=== PATIENT | male | born 1950 | race Caucasian/White ===

== ENCOUNTER → 2018-07-11 17:45 | Outpatient (CLI) | payer MEDICARE, OTHER, SELFPAY | PROVIDERS: Family Provider Internal Medicine; PCP Internal Medicine; Visit Provider Anesthesiology Pain Medicine | DX: M13.851 Other specified arthritis, right hip (principal); M70.70 Other bursitis of hip, unspecified hip | CPT/HCPCS: 73721 ==

== ENCOUNTER 2018-09-04 08:40 | Inpatient (IN) | payer MEDICARE, OTHER, SELFPAY ==
--- NOTE | 2018-08-24 06:41 | HP.PCM_ITS ---
History and Physical DATE OF SURGERY: 09/04/2018 SCHEDULED PROCEDURE: Direct anterior right total hip arthroplasty HISTORY OF PRESENT ILLNESS: This is a 68-year-old male who has been having ongoing pain in the right hip for over one year. Patient has increased pain with going up and down stairs, driving, and sitting for extended periods of time. His pain is constant. Pain can reach as high as an 8/10. Patient does have start up pain. Pain does complain of pain in the groin. Patient states he has had to use Ambien for sleep aid due to difficulty with sleeping. Patient has difficult time with activities of daily living including leisure activities such as walking and riding his bicycle. He has tried conservative measures consisting of rest, heat, corticosteroid injection with minimal relief. He has had an injection and this iliopsoas and hip joint injection but was short lived. He has been on oral medications consisting of meloxicam with some relief. Patient denies previous surgery on the right hip. Patient has medical problems hypertension. He currently denies any chest pain, shortness of breath, fevers chills, recent infections. After failing conservative measures and discussing all treatment options with Dr. Roge Mcmahan, the patient would like to proceed with a right total hip arthroplasty. We are obtaining surgical clearance from patient's primary care physician Dr. Sun. REVIEW OF SYSTEMS: ROS: Const: Reports anxiety, but denies anorexia, change in appetite, fever, difficulty sleeping, weight change. CV: Denies chest pain, heart murmur, irregular heartbeat and peripheral vascular disease. Resp: Denies asthma, cough, pneumonia, sleep apnea, shortness of breath, tuberculosis and wheezing. GI: Denies constipation, diarrhea, heartburn, nausea, rectal itching, bloody stools and vomiting. : Denies incontinence. Musculo: Denies leg swelling, pain, trouble walking and weakness. Skin: Denies Raynaud's, history of shingles and tattoo. Neuro: Denies ambulatory dysfunction, dizziness, numbness/tingling and tremor. Psych: Reports anxiety, but denies depression, insomnia, mental illness and stress. Keyon/Lymph: Denies anemia, bleeding/bruising tendency and past transfusion. Reviewed, no changes. PAST MEDICAL HISTORY: Advance Care Plan: No Advance Directives Effective Date: 08/19/2018 PMH: Medical Problems: High Blood Pressure, Childhood Polio Surgical Hx: Hemorroidectomy & Fissurectomy - (03/2008) [facility] Anesthesia Complications: None Assistive Devices: Glasses, Dentures, Hearing Aid Reviewed and updated. SOCIAL HISTORY: SH: Marital: .Occupation: Retired.Work Status: Retired.Hand Dominance: Right- Handed. Personal Habits: Cigarette Use: Never.Alcohol: Denies use.Drug Use: Denies Use.Enjoy Exercising: Exercises 1-3 X/Week. Reviewed, no changes. VITALS: Ht: 71 Wt: 169lb Wt k.658 BMI: 23.6 BP: 112/74 Pulse: 60 Resp: 14 T: 98.4 T: 36.9C ALLERGIES: No Known Drug Allergy MEDICATIONS: Meloxicam 15 mg 1 by mouth every day, Pravastatin Sodium 80 mg 1 by mouth every day, Tamsulosin HCL 0.4 mg 1 by mouth every day, Ambien 10 mg 1 by mouth every night at bedtime as needed sleep PRE-OP EXAM: General appearance:NORMAL Other: Eyes: Conjunctivae and lids: NORMAL Pupils: ERR Ears, Nose, Mouth, and Throat: NORMAL Other: Inspection of lips, teeth and gums: NORMAL Other: Neck: Examination of neck: no masses noted. Respiratory: Assessment of respiratory effort: NORMAL Other: Auscultation of lungs: clear to auscultation no wheezes, rhonchi or rales. Cardiovascular: Auscultation of heart: regular rate and rhythm, no murmurs, gallops or rubs. Exam of carotid arteries: NORMAL Other: Gastrointestinal: Exam of abdomen: soft, nontender, nondistended bowel sounds present. PHYSICAL EXAMINATION: Patient walks with an antalgic gait. He has increased pain with range of motion of the right hip including flexion, abduction, and internal rotation. He has right hip flexion to 95, internal rotation 15, external rotation to 20. Patient has 4/5 strength of the iliopsoas. There is no tenderness to palpation over the lateral right hip. Sensation intact to light touch. Neurovascularly intact. IMAGING STUDIES: X-rays of the right hip reveal joint space narrowing, subchondral sclerosis, osteophyte formation consistent with severe osteoarthritis of the right hip. No acute findings for fracture. IMPRESSION: 1. Severe right hip osteoarthritis 2. Hypertension 3. History of childhood polio PLAN: Dr. Mcmahan did discuss and review with the patient all treatment options including surgical versus nonsurgical options. Patient does wish to proceed with the above-stated procedure. Potential risks, benefits, and complications of the procedure were discussed in detail including but not limited to , infection, nerve and blood vessel damage, persistent pain, numbness, tingling, paresthesias, blood clot, pulmonary embolism, and requirement for possible further surgery. The patient expressed full understanding and has no further questions for the doctor. Patient does agree to proceed with the above-stated procedure and has signed the surgery consent form. ___ I have re-examined the patient. There are no clinical changes since date of exam. ___ See progress notes for changes. ___ Dictated on admission Date: Time: Signature:
[2018-08-26 13:11] VITALS: BP 127/69; PULSE 68; RESP 16; TEMP 36.8; O2SAT 98; BMI 23.5
--- NOTE | 2018-08-26 13:36 | SDCEKG_ITS ---
Test Reason : Blood Pressure : / mmHG Vent. Rate : 063 BPM Atrial Rate : 063 BPM P-R Int : 174 ms QRS Dur : 094 ms QT Int : 388 ms P-R-T Axes : 052 -24 027 degrees QTc Int : 397 ms Normal sinus rhythm Normal ECG Confirmed by SHAHRZAD TAMAYO MD ([id number]), book or script editor JALEESA MACK ([id number]) on 09/02/2018 3:19:28 PM Referred By: Roge Mcmahan Confirmed By:SHAHRZAD TAMAYO MD
[2018-08-26 14:09] LABS: Absolute Lymphocyte Count 1.66 X10^3/ul (0.83-4.51); Absolute Neutrophil Count 3.1 X10^3/uL (2.0-7.7); Basophil# 0.03 X10^3/uL; Basophil% 0.6 % (0-1); Eosinophil# 0.05 X10^3/uL; Eosinophils% 0.9 % (0-5); Hematocrit 43.8 % (40-54); Hemoglobin 14.4 g/dl (13.0-16.5); International Normalized Ratio 1.1; Lymphocyte # 1.66 X10^3/ul (4.0); Mean Corp Hgb Conc 32.9 g/gl (32-36); Mean Corpuscular Hgb 30.6 pg (27.0-32.0); Mean Corpuscular Volume 93.2 fL (80-94); Mean Platelet Vol. 9.5 fl (6.2-12.0); Monocyte# 0.49 X10^3/uL; Monocyte% 9.1 % (0-10); Neutrophil # 3.13 X10^3/uL (2.7-7.7); Neutrophil % 58.4 % (47-70); Platelet Count 349 K/mm3 (150-450); Prothrombin Time (Protime)PT. 14.5 SECONDS (11.7-14.9); RBC Distribution Width CV 12.6 % (11.6-14.6); RBC Distribution Width SD 42.4 fl (35.1-43.9); White Blood Count 5.4 K/mm3 (4.4-11.0)
[2018-08-26 14:10] LABS: Partial Thromboplast Time 31.9 Seconds (24.1-36.2)
[2018-08-26 14:19] LABS: POSITIVE COUNT NO; POSITIVE DIFFERENTIAL NO; POSITIVE MORPHOLOGY NO
[2018-08-26 14:33] LABS: AST(SGOT) 18 U/L (15-37); Alanine Aminotransfer ALT/SGPT 24 U/L (16-61); Albumin, Serum 3.9 g/dL (3.2-5.0); Alkaline Phosphatase 68 U/L (45-117); Anion Gap 6 (5-15); BUN 14 mg/dL (7-18); BUN/Creat Ratio 16.6 RATIO (10-20); Bilirubin, Direct 0.18 mg/dL (0.00-0.30); Chloride 105 mmol/L (98-107); Creatinine, Serum 0.84 mg/dL (0.70-1.30); EST Glomerular Filtration Rate 96 mL/min (>60); Est Glom Filt Rate - Afr Amer 116 mL/min (>60); Globulin 3.3 g/dL (2.2-4.2); Glucose 85 mg/dL (74-106); Protein, Total 7.2 g/dL (6.4-8.2); Sodium Level 139 mmol/L (136-145)
--- NOTE | 2018-08-30 13:00 | CASEMGMT ---
Call placed to patient to discuss discharge needs after upcoming surgery. Per PAT assessment, patient anticipated returning home. Patient states that he's unsure if he will have someone to assist him at home and is interested in possibly going to inpatient rehab. Patient states that he is interested in home health PT as he will not have assistance with transportation. Patient has a walker, toilet riser with grab bars built in, and shower seat. Patient has [address] Informed patient that RN-CM will follow up after surgery. Magali Ovalle LPN Clinical Support
[2018-09-04] VITALS (8 sets, daily range): BP systolic 107–135; BP diastolic 62–83; PULSE 57–88; RESP 16–18; TEMP 36.1–37.1; O2SAT 96–99; BMI 23.5; BMI 23.6
[2018-09-04] MEDS: oxyCODONE HCl Cr 10 MG Tablet PO (09:16)
[2018-09-04] MEDS: Acetaminophen 500 MG Tablet 1000 MG PO ×3 (09:16→22:06)
[2018-09-04] MEDS: Celecoxib 200 MG Capsule 400 MG PO (09:16)
[2018-09-04] MEDS: Cefazolin 2 GM in 0.9% Normal Saline 100 ML IV (10:25)
--- NOTE | 2018-09-04 11:00 | RAD_ITS ---
STUDY: X-RAY - PELVIS AND RIGHT HIP REASON FOR EXAM: Hip replacement. TECHNIQUE: Radiological exam, hip, unilateral, with pelvis when performed; 2 or 3 views. COMPARISON: Radiographs 08/03/2016. FINDINGS: 4 fluoroscopic views demonstrate a right hip arthroplasty without evidence of complication. Electronically Signed: Corona Vasquez MD at 13:40 EDT Tel , Service support , RAD/Hip 1 view with Pelvis
--- NOTE | 2018-09-04 12:02 | OP.PCM_ITS ---
Report of Operation Date of Procedure: 09/04/18 Pre-Operative Diagnosis: Right hip primary osteoarthritis Post-Operative Diagnosis: Right hip primary osteoarthritis Surgery/Procedure Performed:: Right direct anterior total hip replacement Description of Surgical Findings:: Stable hip with equal leg lengths tin stacker: Jadyn Ordonez Type of Anesthesia:: Spinal Anesthesiologist: Alexey Briscoe Special Medications: 2 g Ancef, 1 g TXA at incision, 1 g TXA closure, 10 mg Decadron, joint cocktail (5 mg Duramorph, 30 mL of 0.5% Ropivicaine, 1000 units of epinephrine, 30 mg of Toradol) Specimen's removed: Bony cuts Estimated Blood Loss (mL): 200 Fluids Replaced: 1400 mL crystalloid Description of Procedure: Components used: 1. Accolade 2 Rajiv femoral stem size 8 127? 2. [place] trident II acetabular shell size 56 mm 3. Rajiv X3 polyethylene F 4. Rajiv Biolox delta 36mm, 5mm femoral head Brief history operative indications: 68 yo m who failed conservative measures for their hip osteoarthritis. X-rays were consistent with osteoarthritis including joint space narrowing, osteophyte formation and subchondral cysts. Total hip replacement was discussed with the patient with risks and benefits including but not limited to blood loss, DVTs, PEs, neurovascular damage, dislocation, general risks of anesthesia including loss of life. Patient demonstrated an understanding medical clearance is obtained the patient was consented for surgery. Procedure: On the date of procedure the patient's R hip was marked in the preoperative area. Patient was then taken back to the operating room where anesthesia assumed control of the C-spine and airway and administered anesthetic. Patient was transferred to the operating table and placed in the supine position. The hips were placed at the break of the bed and a sacral bump was placed. The R lower extremity was then prepped out in a sterile fashion using chlorhexidine while the surgeon scrubbed. The PA was vital in the positioning of the patient. Upon reentering the room the R lower extremity was draped in the standard orthopedic fashion and the incision was marked. A timeout was called and everyone agreed upon the side, the site, the procedure be performed, antibody given, and patient's identity. At this time incision was made through skin, subcutaneous tissue, and fat down to fascia. The fascia was then incised and the TFL was retracted laterally. A retractor was placed on the lateral border of the femoral neck. Attention was directed to the inferior portion of the approach and all crossing vessels were identified and appropriately coagulated. A retractor was then placed on the medial portion of the femoral neck. The anterior capsule was then cleared of all soft tissue and then H shaped capsulotomy was made. The retractors were then placed inside the capsule. The femoral neck was identified and a cleanup cut was made. At this time a power corkscrew was used to remove the femoral head. Attention was then turned toward the acetabulum where the soft tissues were appropriately retracted and the acetabulum was sequentially reamed to 56 mm. A 56 mm cup was then selected and impacted into place. Acetabular liner was impacted into place and locking mechanism was verified. The position of the acetabular cup was then verified under live fluoroscopy. Attention was then turned to the femur. Soft tissue releases on the medial and lateral femoral neck were appropriately done, the leg was externally rotated and lateralized. A Johnson retractor was placed medially and proximally to the greater trochanter this allowed appropriate visualization and exposure of the femoral canal. Rongeour was then used to remove excess lateral bone. A canal finder and entry broach were used to open the proximal canal. Once we verified we were down the femoral canal we subsequently broached up to a size 8 femur. The appropriate neck was placed in the previously selected head was trialed with a 5 mm neck. Traction was pulled and the hip was reduced with internal rotation. Once it was appropriately reduced and stability was checked. There was minimal shuck, equal leg lengths and appropriate stability with hyperextension and external rotation as well as with 90? flexion and internal rotation. Fluoroscopy was then also used to verify the position of the components and leg lengths using the contralateral side for comparison. The trial components were then dislocated the proximal femur was again exposed and the components were removed from the wound. The final components were verified and opened. The wound was copiously irrigated out with normal saline. The acetabulum was checked for any residual debris. The final components were placed and impacted. Traction and internal rotation were again used to reduce the hip. After adequate reduction the hip remained stable with appropriate leg lengths. The final components were once again checked with live fluoroscopy and were found to be satisfactory. The wound was then copiously irrigated with normal saline once more, and hemostasis was obtained. Closure was then done using #1 Vicryl runner to close the fascia. A 2-0 vicryl interuppted sutures were used to close the subcutaneous skin. A 3-0 Monocryl and Steri-Strips were used for final skin closure. A Silverlon dressing was placed. Patient was awakened by anesthesia and transferred to [facility]. Patient was then transferred to the PACU for recovery. Postoperative plan: Patient will get 24 hours postop antibiotics. Patient will get in-house physical therapy and will be weight-bear as tolerated. Patient will follow up in office in 2 weeks for a wound check and x-rays. Grafts/Implants Used: Rajiv Accolade 2 - Complications None - Admit VTE Documentation VTE Present on Admission: No VTE Mechan Device Prophylaxis: SCD's, Thigh High JIMMY Hose VTE Pharm Prophylaxis ordered?: Yes
--- NOTE | 2018-09-04 12:03 | RAD_ITS ---
STUDY: X-RAY - PELVIS AND RIGHT HIP REASON FOR EXAM: Postop. TECHNIQUE: Radiological exam, hip, unilateral, with pelvis when performed; 1 view COMPARISON: Radiographs 08/03/2016. FINDINGS: There is a right hip arthroplasty without evidence of complication. There is postoperative soft tissue gas in the soft tissues. RAD/Hip Min 2 Views (Portable) IMPRESSION: Uncomplicated right hip arthroplasty. Electronically Signed: Corona Vasquez MD at 13:40 EDT Tel , Service support ,
[2018-09-04] MEDS: oxyCODONE 5 MG Tablet PO (13:13)
[2018-09-04] MEDS: Lactated Ringers 1,000 ML 125 ML IV ×2 (14:14→22:48)
[2018-09-04] MEDS: Aspirin E.C. 81 MG Tablet PO (17:34)
[2018-09-04] MEDS: Cefazolin 1 GM/50 ML BAG IV (17:35)
--- NOTE | 2018-09-04 19:35 | NURSING ---
PT C/O FULL BLADDER. PT WAS BLADDERSCANNED FOR 794ML. ST CATH PREFORMED FOR OUTPUT OF 750ML. PT TOLERATED WELL.
[2018-09-04] MEDS: Morphine 4 MG/ML Syringe IV (20:02)
[2018-09-04] MEDS: 0.9% NaCl Peripheral Flush Adult/Peds IV (20:03)
[2018-09-04] MEDS: Tamsulosin HCl 0.4 MG Capsule PO (20:36)
[2018-09-04] MEDS: Zolpidem Tartrate 5 MG Tablet PO (22:06)
[2018-09-04] MEDS: Pravastatin 80 MG Tablet PO (22:06)
[2018-09-04] MEDS: Senna/Docusate Sodium 1 Tablet 2 TABLET PO (22:06)
[2018-09-05] MEDS: Cefazolin 1 GM/50 ML BAG IV (02:49)
[2018-09-05 02:51] VITALS: BP 126/78; PULSE 62; RESP 16; TEMP 36.7; O2SAT 96
[2018-09-05] MEDS: Acetaminophen 500 MG Tablet 1000 MG PO ×3 (05:57→22:00)
[2018-09-05] MEDS: 0.9% NaCl Peripheral Flush Adult/Peds IV (06:34)
[2018-09-05] MEDS: Ondansetron 4 MG/2 ML Vial IV (06:34)
[2018-09-05] MEDS: Lactated Ringers 1,000 ML 125 ML IV (06:39)
[2018-09-05 06:46] LABS: Hematocrit 37.3 % (40-54); Hemoglobin 12.4 g/dl (13.0-16.5); Mean Corp Hgb Conc 33.2 g/gl (32-36); Mean Corpuscular Hgb 31.5 pg (27.0-32.0); Mean Corpuscular Volume 94.7 fL (80-94); Mean Platelet Vol. 9.4 fl (6.2-12.0); Platelet Count 319 K/mm3 (150-450); RBC Distribution Width CV 12.8 % (11.6-14.6); RBC Distribution Width SD 42.9 fl (35.1-43.9); Red Blood Count 3.94 M/mm3 (4.6-6.2); White Blood Count 11.9 K/mm3 (4.4-11.0)
[2018-09-05 06:49] LABS: Scan Indicated on CBC? Y/N NO
[2018-09-05 07:01] LABS: Anion Gap 7 (5-15); BUN 9 mg/dL (7-18); BUN/Creat Ratio 11.5 RATIO (10-20); Calcium,Total 8.5 mg/dL (8.5-10.1); Chloride 107 mmol/L (98-107); Creatinine, Serum 0.78 mg/dL (0.70-1.30); EST Glomerular Filtration Rate 104 mL/min (>60); Est Glom Filt Rate - Afr Amer 126 mL/min (>60); Estimated Creatinine Clearance 71.99 ml/min; Glucose 119 mg/dL (74-106); Potassium 3.6 mmol/L (3.5-5.1); Sodium Level 141 mmol/L (136-145)
[2018-09-05] MEDS: Tamsulosin HCl 0.4 MG Capsule PO (07:39)
--- NOTE | 2018-09-05 08:45 | NURSING ---
aware Ray is going to talk w/ Dr. Mcmahan and discuss urology consult with him as per air lift operator is not taking consults today that Dr. Barber is covering and it states if it is male patient she will only see emergent consults. Also discussed per policy if it is an emergent consult, it is to be physician to physician notification.
[2018-09-05 08:50] VITALS: BP 98/55; PULSE 64; RESP 16; TEMP 36.8; O2SAT 98
[2018-09-05] MEDS: oxyCODONE 5 MG Tablet PO ×3 (08:50→17:25)
[2018-09-05] MEDS: Senna/Docusate Sodium 1 Tablet 2 TABLET PO ×2 (08:50→22:00)
[2018-09-05] MEDS: Famotidine 20 MG Tablet PO (08:50)
[2018-09-05] MEDS: Aspirin E.C. 81 MG Tablet PO ×2 (08:50→17:16)
--- NOTE | 2018-09-05 09:08 | PN.ORTHO_ITS ---
Subjective: The patient was sitting in bed upon examination. Patient denies any chest pain, shortness of breath, dizziness, lightheadedness, nausea or vomiting, or calf pain. Pain is controlled on medications. Patient states he had a very difficult time overnight due to postoperative urinary retention. Patient has history of BPH and takes tamsulosin. Patient required to be catheterized and is still currently placed. Objective: Vital signs stable and afebrile. Patient is able to plantarflex and dorsiflex actively. Sensation is intact to light touch to saphenous, sural, superficial and deep peroneal, and tibial distribution. Dressing is clean dry and intact. Negative Homans bilaterally, negative signs and symptoms of DVT. - Physical Exam General: Alert, Oriented x3, Cooperative, No apparent distress Vital Signs Temp Pulse Resp BP Pulse Ox 98.2 F 64 16 98/55 L 98 09/05/18 08:50 09/05/18 08:50 09/05/18 08:50 09/05/18 08:50 09/05/18 08:50 Oxygen Delivery Method Room Air Weight: 76.5 kg Body Mass Index (BMI) 23.6 Intake and Output for Last 24 Hours 09/03/18 09/04/18 09/05/18 23:59 23:59 23:59 Intake Total 1500 / 1500 2507 / 2507 Output Total 1950 / 1950 2250 / 2250 Balance -450 / -450 257 / 257 Laboratory Tests Past 24 Hrs 09/05/18 09/05/18 06:12 06:12 WBC 11.9 H RBC 3.94 L Hgb 12.4 L Hct 37.3 L MCV 94.7 H MCH 31.5 MCHC 33.2 RDW 12.8 RDW Differential 42.9 Plt Count 319 MPV 9.4 Sodium 141 Potassium 3.6 Chloride 107 Carbon Dioxide 27.0 Anion Gap 7 BUN 9 Creatinine 0.78 Estim Creat Clear Calc 71.99 Est GFR (MDRD) Af Amer 126 Est GFR (MDRD) Non-Af 104 BUN/Creatinine Ratio 11.5 Glucose 119 H Calcium 8.5 Medical Necessity - Tobacco Use Smoking Status: Never smoker Assessment/Plan 1. S/P right direct anterior total hip arthroplasty POD #1 2. Continue Pain Medications: Tylenol and OxyIR 3. DVT Prophylaxis: 81 mg aspirin twice daily times 4 weeks 4. PT/OT: Weightbearing as tolerated 5. H & H: 12.4/37.3, asymptomatic 6. Leukocytosis: Currently 11.9, afebrile. Patient did receive Decadron int raoperatively 7. Encouraged Incentive Spirometry 8. Postoperative urinary retention with history of BPH: Currently on tamsulosin. Continue with catheterization and will pull this afternoon at 1:00. If patient is still unable to urinate on his own consult to urologist will be obtained. Case was discussed with Dr. Roge Mcmahan. 9. Disposition: Plan will be for discharge to rehab unit at [facility] possibly tomorrow.
--- NOTE | 2018-09-05 10:43 | CASEMGMT ---
Addendum entered by Margaux Mitchell 09/05/18 12:15: SW met with pt to confirm discharge plans. SW introduced self and role at [facility]. Pt confirms that his plan is for [facility] at discharge. Original Note: Social Work Note RN CYNTHIA Jackson updated this worker that she called Maria Eugenia with [facility] informing her that pt should be ready for discharge to [facility] tomorrow. Plan: Discharge to when medically cleared Margaux Mitchell JUNIOR PROGRAMMER ANALYST, QUALITY IMPROVEMENT MANAGER
[2018-09-05 14:50] VITALS: BP 130/69; PULSE 79; RESP 16; TEMP 37.4; O2SAT 98
[2018-09-05 20:00] VITALS: O2SAT 98
[2018-09-05 20:50] VITALS: BP 121/66; PULSE 89; RESP 18; TEMP 37.2; O2SAT 98
[2018-09-05] MEDS: Meloxicam 7.5 MG Tablet PO (22:00)
[2018-09-05] MEDS: Pravastatin 80 MG Tablet PO (22:00)
[2018-09-05] MEDS: Zolpidem Tartrate 5 MG Tablet PO (22:30)
[2018-09-06 03:04] VITALS: BP 99/52; PULSE 67; RESP 16; TEMP 37.3; O2SAT 99
[2018-09-06] MEDS: Acetaminophen 500 MG Tablet 1000 MG PO (05:29)
[2018-09-06 06:43] LABS: Hematocrit 34.9 % (40-54); Hemoglobin 11.3 g/dl (13.0-16.5); Mean Corp Hgb Conc 32.4 g/gl (32-36); Mean Corpuscular Volume 95.6 fL (80-94); Mean Platelet Vol. 9.7 fl (6.2-12.0); Platelet Count 277 K/mm3 (150-450); RBC Distribution Width SD 43.8 fl (35.1-43.9); Red Blood Count 3.65 M/mm3 (4.6-6.2); Scan Indicated on CBC? Y/N NO; White Blood Count 9.6 K/mm3 (4.4-11.0)
--- NOTE | 2018-09-06 06:50 | PN.ORTHO_ITS ---
Subjective: The patient was sitting in bed upon examination. Patient denies any chest pain, shortness of breath, dizziness, lightheadedness, nausea or vomiting, or calf pain. Pain is controlled on medications. No adverse overnight events. Since catheter was removed yesterday patient has been able to void on his own. Overall patient is doing well and will be transferred to the rehab unit today. Objective: Vital signs stable and afebrile. Patient is able to plantarflex and dorsiflex actively. Sensation is intact to light touch to saphenous, sural, superficial and deep peroneal, and tibial distribution. Dressing is clean dry and intact. Negative Homans bilaterally, negative signs and symptoms of DVT. - Physical Exam General: Alert, Oriented x3, Cooperative, No apparent distress Vital Signs Temp Pulse Resp BP Pulse Ox 99.2 F H 67 16 99/52 L 99 09/06/18 03:04 09/06/18 03:04 09/06/18 03:04 09/06/18 03:04 09/06/18 03:04 Oxygen Delivery Method Room Air Weight: 76.5 kg Body Mass Index (BMI) 23.6 Intake and Output for Last 24 Hours 09/04/18 09/05/18 09/06/18 23:59 23:59 23:59 Intake Total 1500 / 1500 2827 / 2827 120 / 120 Output Total 1950 / 1950 4100 / 4100 800 / 800 Balance -450 / -450 -1273 / -1273 -680 / -680 Laboratory Tests Past 24 Hrs 09/05/18 09/05/18 09/06/18 06:12 06:12 06:05 WBC 11.9 H 9.6 RBC 3.94 L 3.65 L Hgb 12.4 L 11.3 L Hct 37.3 L 34.9 L MCV 94.7 H 95.6 H MCH 31.5 31.0 MCHC 33.2 32.4 RDW 12.8 13.0 RDW Differential 42.9 43.8 Plt Count 319 277 MPV 9.4 9.7 Sodium 141 Potassium 3.6 Chloride 107 Carbon Dioxide 27.0 Anion Gap 7 BUN 9 Creatinine 0.78 Estim Creat Clear Calc 71.99 Est GFR (MDRD) Af Amer 126 Est GFR (MDRD) Non-Af 104 BUN/Creatinine Ratio 11.5 Glucose 119 H Calcium 8.5 Medical Necessity - Tobacco Use Smoking Status: Never smoker Assessment/Plan 1. S/P right direct anterior total hip arthroplasty POD #2 2. Continue Pain Medications: Tylenol and OxyIR 3. DVT Prophylaxis: 81 mg aspirin twice daily times 4 weeks 4. PT/OT: Weightbearing as tolerated 5. H & H: 11.3/34.9, asymptomatic 6. Leukocytosis: Resolved currently 9.6, afebrile. Patient did receive Decadron intraoperatively 7. Encouraged Incentive Spirometry 8. Postoperative urinary retention with history of BPH: Currently on tamsulosin. Catheter was removed yesterday and patient has been able to void on his own. We will continue with his own home medication at this time. 9. Disposition: Plan will be for discharge today to rehab unit at [facility]. Prescriptions are attached to the chart. Patient will follow-up per postop instructions.
--- NOTE | 2018-09-06 06:56 | DCINST_ITS ---
Discharge Diet: No Restrictions Discharge Activity: May Not Drive - while taking narcotic pain medications. May shower in (days): 1 - Turned dressing away from water Ice area for (Minutes): 20 - Every 1-2 hours while awake Weight Bearing Status: Weight bearing as tolerated Elevate: Operative Extremity Additional Activity Instructions:: Wear elastic stockings for 2 weeks. DO NOT use alcohol with narcotic pain medication. DO NOT make important decisions while taking narcotic medication. If you have problems with taking your medication (rash, itching, nausea, etc.) call the office at once. Call your doctor if your incision/area has: Increased Pain/ Swelling, Increased Redness, Foul Smelling Discharge Call your doctor if you observe: Fever of 101 or Higher Remove Dressing in (days):: 3 - Okay to remove dressing on September 09, 2018 Additional Instructions: Follow-up per [facility] postop instructions We would like patient to take meloxicam 7.5 mg twice daily postoperatively and not his 15 mg. It is okay for patient to shower at this time if dressing is intact to the skin. He is to turn the dressing away from water while showering. Once dressing is off it is okay to use gentle soap and water over the incision. Do not submerge the incision for 4 weeks postoperatively under water. Allergies/Adverse Reactions: Allergies No Known Allergies Allergy (Unverified 08/26/18 13:05) Medications to take at Discharge Pravastatin Sodium 80 mg PO QHS 08/26/18 Tamsulosin HCl [Flomax] 0.4 mg PO DAILY 08/26/18 Zolpidem Tartrate [Ambien] 10 mg PO QHS 08/26/18 Acetaminophen [Tylenol] 1,000 mg PO Q8 #90 tab 09/06/18 Aspirin E.C. [Ecotrin] 81 mg PO BIDCM #60 tab 09/06/18 Famotidine [Pepcid] 20 mg PO DAILY #30 tab 09/06/18 Meloxicam [Mobic] 7.5 mg PO BID #30 tab 09/06/18 Oxycodone [Oxyir] 5 - 10 mg PO Q4H PRN PRN 5 Days #60 tab 09/06/18 Senna/Docusate Sodium [Senokot-S] 2 tab PO BID #20 tab 09/06/18 The following prescriptions were given: Oxycodone [Oxyir] 5 - 10 mg PO Q4H PRN PRN 5 Days #60 tab PRN Reason: Mod-Severe Pain (-09/04) Acetaminophen [Tylenol] 1,000 mg PO Q8 #90 tab Famotidine [Pepcid] 20 mg PO DAILY #30 tab Aspirin E.C. [Ecotrin] 81 mg PO BIDCM #60 tab Meloxicam [Mobic] 7.5 mg PO BID #30 tab Senna/Docusate Sodium [Senokot-S] 2 tab PO BID #20 tab Primary Care Physician: Lo Sun MD [Primary Care Provider] - Test Results: Test results from this visit will be discussed in further detail at your follow- up appointment, if applicable. Please Follow Up With: Damon Kohler PA-C When: 09/18/18 @ 10:30 am
[2018-09-06 08:11] VITALS: BP 111/59; PULSE 83; RESP 16; TEMP 37; O2SAT 93
[2018-09-06] MEDS: Aspirin E.C. 81 MG Tablet PO (08:16)
[2018-09-06] MEDS: Tamsulosin HCl 0.4 MG Capsule PO (08:17)
[2018-09-06] MEDS: 0.9% NaCl Peripheral Flush Adult/Peds IV (08:21)
[2018-09-06] MEDS: Ketorolac 15 MG/ML Vial IV (08:21)
[2018-09-06] MEDS: Meloxicam 7.5 MG Tablet PO (09:45)
[2018-09-06] MEDS: Famotidine 20 MG Tablet PO (09:45)
[2018-09-06] MEDS: Senna/Docusate Sodium 1 Tablet 2 TABLET PO (09:45)
--- NOTE | 2018-09-06 10:50 | CASEMGMT ---
Social Work Note MARIE spoke with Maria Eugenia with [facility] informing her that discharge orders are in for pt and he will be discharged today to . Maria Eugenia states understanding and is able to accept pt today. Plan: Discharge to today Margaux Mitchell SQUAD LEADER, PILOT INSTRUCTOR
== END 2018-09-06 11:20 | DRG 470 ==
LOC: ACINP 08:41 → MS3 09-05 07:38
PROVIDERS: Anesthesiology; Admitting Provider Specialist; Family Provider Internal Medicine; PCP Internal Medicine; Referring Provider Specialist; Visit Provider Specialist
PROC: 0SR904Z Replacement of Right Hip Joint with Ceramic on Polyethylene Synthetic Substitute, Open Approach (ICD-10-PCS; CPT 27284; principal; 2018-09-04 10:35)
DX: M16.11 Unilateral primary osteoarthritis, right hip (principal); I10 Essential (primary) hypertension; E78.00 Pure hypercholesterolemia, unspecified; Z79.52 Long term (current) use of systemic steroids; Z79.899 Other long term (current) drug therapy; N40.1 Benign prostatic hyperplasia with lower urinary tract symptoms; R33.8 Other retention of urine; D72.829 Elevated white blood cell count, unspecified; N99.89 Other postprocedural complications and disorders of genitourinary system
CPT/HCPCS: 36415; 73501; 73502; 76000; 80048; 80076; 85025; 85027; 85610; 85730; 87077; 87081; 93005; 97110; 97162; 97165; 97530; 97535; 99251; C1776; J7120; 90686; A4216; G0463; J2405

== ENCOUNTER 2018-09-06 11:59 | Inpatient (IN) | payer MEDICARE, OTHER, SELFPAY ==
[2018-09-06 12:24] VITALS: BP 110/59; PULSE 80; RESP 16; TEMP 36.8; O2SAT 97; BMI 25.1
--- NOTE | 2018-09-06 12:36 | NURSING ---
tel. [facility]. ref. if pt needs lovenox 40mg daily? They will talk to ANTOINE Lyons and call us back.
--- NOTE | 2018-09-06 12:51 | NURSING ---
ANTOINE Fish called stated that ASA 81mg BID is prophylactic for this Pt. Do not give lovenox.
--- NOTE | 2018-09-06 12:52 | REHABEVAL_ITS ---
Admission Information Status Changes from Prescreening?: No changes Identified Actual Problem List:: Mobility Impaired, Self Care Deficit Potential Problem List:: DVT, Bleeding, Infection, UTI, Aspiration, Falls, Skin Integrity, Depression Risk of Complications DVT: LMWH, JIMMY Hose, Sequential Compression Device Bleeding: Monitor Lab Values, Nursing to Teach Precautions for anti-coagulation therapy., Wound, if applicable, to be assessed every shift., Stroke patients assessed for lethargy or change in status. Infection: Clinical Staff to Monitor for S/S of infection:, S/S of infection include fever, redness, warmth, etc. Urinary Tract Infection: Monitor for frequency, burning, discomfort, or incontinence., Nursing will obtain urine sample for urinalysis and C&S when ordered. Aspiration: Clinical staff will monitor for coughing, drooling, congestion., Speech will evaluate swallowing and dsyphasia., Nursing will monitor patient swallowing during meals. Falls: Patient will be evaluated for Fall Precautions, Patient will be placed on Fall Precautions as indicated per protocol. Skin Breakdown: Nursing will assess skin daily using assessment tool., Nursing will place on Skin Breakdown Precautions as indicated. Pain: Clinical staff will assess patient's pain level per protocol., Medications will be given, if needed, and the pain level reassessed., Other methods: Massage, distraction, decrease stimulus, etc. used PRN. Plan of Care Patient requires physician specializing in physical medicine and rehab oversight to provide close medical supervision of rehab issues including: Pain Management, Sleep Problems, Bowel and Bladder, Medical and co-morbidity Management, DVT prophylaxis, Rehabilitation Leadership, Coordination of treatment team Patient needs Physical Therapy: For a minimum of 1 hour, At least 5 out of 7 days Patient needs Physical Therapy to improve:: Mobility, Mobility, Mobility, Strengthening, Transfers, Stretching, ROM, Endurance, Stairs, Gait, Balance Patient needs Occupational Therapy: For a minimum of 1 hour, At least 5 out of 7 days Patient needs Occupational Therapy to improve ADL's incl.: Eating, Grooming, Bathing, Dressing, Toileting, Toilet transfers, Community Reintegration, Higher functioning activities, Household tasks, Adaptive Equipment, Splinting, Other activities as determined Patient requires 24/7 Rehabilitation Nursing for: Pain Issues, Identifying and preventing risk factors, Monitoring and reporting current medical conditions, Assisting with ambulation, transfer, and all ADL's, Teaching patients about disease process and medications, Family teaching, Providing safe environment, Bowel and Bladder Issues, Skin integrity, Medication Management Patient needs Leak Patcher/ Case Management for: Discharge Planning, Arranging Home Equipment or Services, Family Interventions Patient needs Dietary and Nutrition Services for: Adequate Nutrition, Nutritional Supplements, Nutritional Education Goals Patient will remain: free from falls, or injury at time of discharge. Patient will perform bed mobility at: MOD I level of assist. Patient will complete transfers from bed to chair at: MOD I level of assist. Patient will ambulate: 100 feet, with MOD I assist, with LRD Patient will complete upper body dressing at: MOD I level of assist. Patient will complete lower body dressing at: MOD I level of assist. Patient will complete toileting at: MOD I level of assist. Patient will perform bathing at: MOD I level of assist. Patient will complete grooming at: MOD I level of assist. Patient will complete home management skills at: MOD I level of assist. Patient will achieve: 12 stairs, at MOD I assist Patient will have pain level of: of 3 or less Patient's skin will: remain intact, free from infection. Patient will receive: adequate nutrition. Discharge Planning Pt Prognosis for Sig. Practical Improv. w/in Reasonable Time: Good Estimated Length of stay (days): 16 Anticipated D/C Destination: Home with Outpt Therapy Was Preadmission Assessment Accurate?: Yes
--- NOTE | 2018-09-06 14:32 | CASEMGMT ---
Reviewed and approved attached manager social media student documentation. Alycia MENDES, BEVERAGE SERVER
[2018-09-06] MEDS: Acetaminophen 500 MG Tablet 1000 MG PO ×2 (14:38→22:47)
[2018-09-06] MEDS: oxyCODONE 5 MG Tablet PO ×2 (14:38→20:15)
--- NOTE | 2018-09-06 14:38 | PCM.PN.HOSP ---
Subjective: 68-year-old with past medical history of hip osteoarthritis, hyperlipidemia, BPH, insomnia who comes in for acute rehab status post right direct anterior total hip replacement on 09/04/18. Patient is postop day 2 post procedure. He is being admitted to the inpatient rehab for therapy to discharge home. He feels well. Has been ambulating in the unit. Complains of constipation. Last moved his bowel 4 days ago. Denies any fever or chills or chest pain or shortness of breath Review of systems has been negative Vitals/I&O's: Weight: 77.2 kg Body Mass Index (BMI) 25.1 General: Alert, Oriented x3, Cooperative, No apparent distress HEENT: Atraumatic, PERRLA, EOMI, Normocephalic Oral: Moist Mucosa Neck: Supple, No JVD, Negative Carotid Bruits Lungs: Clear to auscultation, Normal air movement Cardiovascular: Regular rate, Regular Rhythm, Normal S1, Normal S2, No murmurs Abdomen: Bowel Sounds Present, Soft, Non Tender, Non-Distended, No Hepato-splenomegaly Extremities: No edema, - - Right anterior dressing is clean, intact, slight tenderness at the right hip, range of motion is intact Skin: No rashes, No breakdown Musculoskeletal: No Tenderness to Palpation of Joints or Extremities Lymphatic: No Cervical, Supraclavicular, or Inguinal Adenopathy Neurological: Cranial nerves II-XII grossly intact, Neuro grossly intact Psych/Mental Status: Normal Affect, Appropriate Current Medications Acetaminophen (Tylenol) 1,000 mg PO Q8 [facility] Aspirin (Ecotrin) 81 mg PO BIDCM [facility] Bisacodyl (Dulcolax) 10 mg RECTAL .PRN X 1 PRN PRN Reason: Constipation Famotidine (Pepcid) 20 mg PO DAILY [facility] Fentanyl (Duragesic Patch) 12 mcg TRANSDERM. Q3D [facility] Magnesium Hydroxide (Milk Of Magnesia) 30 ml PO .PRN X 1 PRN PRN Reason: Constipation Meloxicam (Mobic) 7.5 mg PO BID [facility] Oxycodone HCl (Oxyir) 5 - 10 mg PO Q4H PRN PRN PRN Reason: MOD-SEVERE PAIN (4-09/04) Pravastatin Sodium (Pravachol) 80 mg PO QHS [facility] Senna/Docusate Sodium (Senokot-S, Gloria-Colace) 2 tablet PO BID [facility] Tamsulosin HCl (Flomax) 0.4 mg PO DAILY [facility] Zolpidem Tartrate (Ambien (Generic)) 10 mg PO QHS [facility] Medical Necessity - Tobacco Use Smoking Status: Never smoker Assessment/Plan 68-year-old with past medical history of hip osteoarthritis, hyperlipidemia, BPH, insomnia who comes in for acute rehab status post right direct anterior total hip replacement on 09/04/18. 1. Debility secondary to recent hip replacement, postop day #2, pain is controlled, will follow up on orthopedic recommendation, physical therapy Continue with pain control 2. Postop anemia, drop in hemoglobin from 14.4-11.3, no signs of ongoing bleed, will continue to monitor 3. Hyperlipidemia, on statin 4. BPH on Flomax 5. DVT prophylaxis per orthopedics recommendations Code Visit Inpatient E&M: 73932 Subs Hosp L2
--- NOTE | 2018-09-06 16:53 | PCM.HP.COS ---
History of Present Illness Date of Admission: 09/06/18 Chief Complaint: Right total hip replacement The patient is a 68 year old right handed Male, who is admitted to the rehab unit for rehabilitation after a right total hip arthroplasty with Dr. Mcmahan on 09/04 without complications. He has a PMH of hip osteoarthritis, HLD, BPH, and insomnia. He has been having ongoing pain in the right hip for the last year and a half, which had begun to affected his quality of. He was having increased pain with going up and down stairs, driving, and sitting for extended periods of time. He lives alone, in a 1 story home with 2 steps to get into the home, he is previously completely functionally independent and is admitted to the rehab unit in order to restore his previous level of functional independence. Past Medical History Allergies No Known Allergies Allergy (Unverified 08/26/18 13:05) Home Medications: Ambulatory Orders Medication Instructions Recorded Pravastatin Sodium 80 mg PO QHS 08/26/18 Tamsulosin HCl [Flomax] 0.4 mg PO DAILY 08/26/18 Zolpidem Tartrate [Ambien] 10 mg PO QHS 08/26/18 Acetaminophen [Tylenol] 1,000 mg PO Q8 09/06/18 Aspirin E.C. [Ecotrin] 81 mg PO BIDCM 09/06/18 Famotidine [Pepcid] 20 mg PO DAILY 09/06/18 Meloxicam [Mobic] 7.5 mg PO BID 09/06/18 Oxycodone [Oxyir] 5 - 10 mg PO Q4H PRN PRN 5 Days 09/06/18 #60 tab Surgical History: - - Hemorrhoidectomy, and Fissurectomy Lives: Alone Smoking Status: Never smoker Alcohol: Occasional Drugs: None Review of Systems Constitutional: Denies: Chills, Fever, Weight Change HEENT: Denies: Head Aches, Sinus Congestion, Sinus Drainage Cardiovascular: Denies: Chest Pain, Palpitations Respiratory: Denies: Cough, Shortness of breath at rest, Sputum production Gastrointestinal: Denies: Abdominal Pain, Nausea, Vomiting Genitourinary: Denies: Dysuria Musculoskeletal: Denies: Joint Pain, Joint Tenderness Skin: Denies: Rash, Wounds Neurological: Denies: Numbness, Tingling, Focal weakness Psychiatric: Denies: Anxiety, Depression, Homicidal Ideations, Suicidal Ideations Hematologic/ Lymphatic: Denies: Easy Bruising, Easy Bleeding VTE Information - Inpt Only VTE Present on Admission: No VTE Mechan Device Prophylaxis: SCD's, Knee High JIMMY Hose VTE Pharm Prophylaxis ordered?: Yes - Physical Exam General: Alert, Oriented x3, Cooperative HEENT: Atraumatic, PERRLA, EOMI, Normocephalic Neck: Supple, No JVD, Negative Carotid Bruits Lungs: Clear to auscultation, Normal air movement Cardiovascular: Regular rate, No murmurs Abdomen: Bowel Sounds Present, Soft, Non Tender Extremities: No edema, Capillary Refill Less than 3 Seconds, - - Right anterior dressing is clean, intact, slight tenderness at the right hip, range of motion is intact Skin: No rashes, No breakdown Musculoskeletal: No Tenderness to Palpation of Joints or Extremities Neurological: Cranial nerves II-XII grossly intact Psych/Mental Status: Normal Affect, Appropriate, Alert and oriented to time, place, person, mood and affect Vital Signs Temp Pulse Resp BP Pulse Ox 98.3 F 80 16 110/59 L 97 09/06/18 12:24 09/06/18 12:24 09/06/18 12:24 09/06/18 12:24 09/06/18 12:24 Oxygen Delivery Method Room Air Weight: 77.2 kg Body Mass Index (BMI) 25.1 Intake and Output for Last 24 Hours 09/04/18 09/05/18 09/06/18 23:59 23:59 23:59 Intake Total 360 / 360 Balance 360 / 360 Active Medications Acetaminophen (Tylenol) 1,000 mg PO Q8 [facility] Last Admin: 09/06/18 14:38 Dose: 1,000 mg [facility] Bisacodyl (Dulcolax) 10 mg RECTAL .PRN X 1 PRN PRN Reason: Constipation Famotidine (Pepcid) 20 mg PO DAILY [facility] Fentanyl (Duragesic Patch) 12 mcg TRANSDERM. Q3D [facility] Last Admin: 09/06/18 14:37 Dose: 12 mcg Magnesium Hydroxide (Milk Of Magnesia) 30 ml PO .PRN X 1 PRN PRN Reason: Constipation Meloxicam (Mobic) 7.5 mg PO BID [facility] Oxycodone HCl (Oxyir) 5 - 10 mg PO Q4H PRN PRN PRN Reason: MOD-SEVERE PAIN (4-09/04) Last Admin: 09/06/18 14:38 Dose: 10 mg Pravastatin Sodium (Pravachol) 80 mg PO QHS [facility] Senna/Docusate Sodium (Senokot-S, Gloria-Colace) 2 tablet PO BID [facility] Tamsulosin HCl (Flomax) 0.4 mg PO DAILY [facility] Zolpidem Tartrate (Ambien (Generic)) 10 mg PO QHS [facility] Assessment/Plan Debility 2/2 Right anterior total hip replacement on 09/04. Complicated by a history of hip osteoarthritis, Plan: - Physical therapy for gait and balance - Occupational Therapy for ADLs - Speech therapy - As needed analgesics - Bowel protocol - Postop anemia, drop in hemoglobin from 14.4-11.3, no signs of ongoing bleed, continue to monitor - Hx of HLD - continue home dose of statin statin - Hx of BPH on Flomax - DVT prophylaxis per orthopedics recommendations
--- NOTE | 2018-09-06 16:57 | HP.PCM.COS_ITS ---
History of Present Illness Date of Admission: 09/06/18 Chief Complaint: Right total hip replacement The patient is a 68 year old right handed Male, who is admitted to the rehab unit for rehabilitation after a right total hip arthroplasty with Dr. Mcmahan on 09/04 without complications. He has a PMH of hip osteoarthritis, HLD, BPH, and insomnia. He has been having ongoing pain in the right hip for the last year and a half, which had begun to affected his quality of. He was having increased pain with going up and down stairs, driving, and sitting for extended periods of time. He lives alone, in a 1 story home with 2 steps to get into the home, he is previously completely functionally independent and is admitted to the rehab unit in order to restore his previous level of functional independence. Past Medical History Allergies No Known Allergies Allergy (Unverified 08/26/18 13:05) Home Medications: Ambulatory Orders Medication Instructions Recorded Pravastatin Sodium 80 mg PO QHS 08/26/18 Tamsulosin HCl [Flomax] 0.4 mg PO DAILY 08/26/18 Zolpidem Tartrate [Ambien] 10 mg PO QHS 08/26/18 Acetaminophen [Tylenol] 1,000 mg PO Q8 09/06/18 Aspirin E.C. [Ecotrin] 81 mg PO BIDCM 09/06/18 Famotidine [Pepcid] 20 mg PO DAILY 09/06/18 Meloxicam [Mobic] 7.5 mg PO BID 09/06/18 Oxycodone [Oxyir] 5 - 10 mg PO Q4H PRN PRN 5 Days 09/06/18 #60 tab Surgical History: - - Hemorrhoidectomy, and Fissurectomy Lives: Alone Smoking Status: Never smoker Alcohol: Occasional Drugs: None Review of Systems Constitutional: Denies: Chills, Fever, Weight Change HEENT: Denies: Head Aches, Sinus Congestion, Sinus Drainage Cardiovascular: Denies: Chest Pain, Palpitations Respiratory: Denies: Cough, Shortness of breath at rest, Sputum production Gastrointestinal: Denies: Abdominal Pain, Nausea, Vomiting Genitourinary: Denies: Dysuria Musculoskeletal: Denies: Joint Pain, Joint Tenderness Skin: Denies: Rash, Wounds Neurological: Denies: Numbness, Tingling, Focal weakness Psychiatric: Denies: Anxiety, Depression, Homicidal Ideations, Suicidal Ideations Hematologic/ Lymphatic: Denies: Easy Bruising, Easy Bleeding VTE Information - Inpt Only VTE Present on Admission: No VTE Mechan Device Prophylaxis: SCD's, Knee High JIMMY Hose VTE Pharm Prophylaxis ordered?: Yes - Physical Exam General: Alert, Oriented x3, Cooperative HEENT: Atraumatic, PERRLA, EOMI, Normocephalic Neck: Supple, No JVD, Negative Carotid Bruits Lungs: Clear to auscultation, Normal air movement Cardiovascular: Regular rate, No murmurs Abdomen: Bowel Sounds Present, Soft, Non Tender Extremities: No edema, Capillary Refill Less than 3 Seconds, - - Right anterior dressing is clean, intact, slight tenderness at the right hip, range of motion is intact Skin: No rashes, No breakdown Musculoskeletal: No Tenderness to Palpation of Joints or Extremities Neurological: Cranial nerves II-XII grossly intact Psych/Mental Status: Normal Affect, Appropriate, Alert and oriented to time, place, person, mood and affect Vital Signs Temp Pulse Resp BP Pulse Ox 98.3 F 80 16 110/59 L 97 09/06/18 12:24 09/06/18 12:24 09/06/18 12:24 09/06/18 12:24 09/06/18 12:24 Oxygen Delivery Method Room Air Weight: 77.2 kg Body Mass Index (BMI) 25.1 Intake and Output for Last 24 Hours 09/04/18 09/05/18 09/06/18 23:59 23:59 23:59 Intake Total 360 / 360 Balance 360 / 360 Active Medications Acetaminophen (Tylenol) 1,000 mg PO Q8 [facility] Last Admin: 09/06/18 14:38 Dose: 1,000 mg [facility] Bisacodyl (Dulcolax) 10 mg RECTAL .PRN X 1 PRN PRN Reason: Constipation Famotidine (Pepcid) 20 mg PO DAILY [facility] Fentanyl (Duragesic Patch) 12 mcg TRANSDERM. Q3D [facility] Last Admin: 09/06/18 14:37 Dose: 12 mcg Magnesium Hydroxide (Milk Of Magnesia) 30 ml PO .PRN X 1 PRN PRN Reason: Constipation Meloxicam (Mobic) 7.5 mg PO BID [facility] Oxycodone HCl (Oxyir) 5 - 10 mg PO Q4H PRN PRN PRN Reason: MOD-SEVERE PAIN (4-09/04) Last Admin: 09/06/18 14:38 Dose: 10 mg Pravastatin Sodium (Pravachol) 80 mg PO QHS [facility] Senna/Docusate Sodium (Senokot-S, Gloria-Colace) 2 tablet PO BID [facility] Tamsulosin HCl (Flomax) 0.4 mg PO DAILY [facility] Zolpidem Tartrate (Ambien (Generic)) 10 mg PO QHS [facility] Assessment/Plan Debility 2/2 Right anterior total hip replacement on 09/04. Complicated by a history of hip osteoarthritis, Plan: - Physical therapy for gait and balance - Occupational Therapy for ADLs - Speech therapy - As needed analgesics - Bowel protocol - Postop anemia, drop in hemoglobin from 14.4-11.3, no signs of ongoing bleed, continue to monitor - Hx of HLD - continue home dose of statin statin - Hx of BPH on Flomax - DVT prophylaxis per orthopedics recommendations
[2018-09-06] MEDS: Aspirin E.C. 81 MG Tablet PO (17:12)
[2018-09-06] MEDS: Magnesium Hydroxide 30 ML UDC PO (17:12)
[2018-09-06 19:30] VITALS: O2SAT 97
[2018-09-06 20:06] VITALS: BP 105/56; PULSE 70; RESP 16; TEMP 37.4; O2SAT 95
[2018-09-06] MEDS: Pravastatin 80 MG Tablet PO (22:48)
[2018-09-06] MEDS: Meloxicam 7.5 MG Tablet PO (22:48)
[2018-09-06] MEDS: Zolpidem Tartrate 5 MG Tablet 10 MG PO (22:48)
[2018-09-06] MEDS: Senna/Docusate Sodium 1 Tablet 2 TABLET PO (22:48)
[2018-09-07] MEDS: Acetaminophen 500 MG Tablet 1000 MG PO ×3 (06:17→21:50)
[2018-09-07 07:15] VITALS: O2SAT 96
[2018-09-07 07:35] VITALS: BP 151/73; PULSE 81; RESP 16; TEMP 36.9; O2SAT 97
[2018-09-07 08:38] LABS: Absolute Neutrophil Count 5.9 X10^3/uL (2.0-7.7); Basophil# 0.01 X10^3/uL; Basophil% 0.1 % (0-1); Eosinophil# 0.09 X10^3/uL; Eosinophils% 1.2 % (0-5); Hematocrit 33.1 % (40-54); Hemoglobin 10.8 g/dl (13.0-16.5); Lymphocyte % 14.2 % (19-41); Mean Corp Hgb Conc 32.6 g/gl (32-36); Mean Corpuscular Hgb 30.9 pg (27.0-32.0); Mean Corpuscular Volume 94.6 fL (80-94); Mean Platelet Vol. 9.1 fl (6.2-12.0); Monocyte# 0.62 X10^3/uL; Neutrophil # 5.93 X10^3/uL (2.7-7.7); Neutrophil % 76.4 % (47-70); Platelet Count 277 K/mm3 (150-450); RBC Distribution Width CV 13.5 % (11.6-14.6); RBC Distribution Width SD 46.4 fl (35.1-43.9); White Blood Count 7.8 K/mm3 (4.4-11.0)
[2018-09-07 08:39] LABS: POSITIVE COUNT NO; POSITIVE DIFFERENTIAL NO; POSITIVE MORPHOLOGY NO
[2018-09-07 09:12] LABS: ALB/GLOB Ratio 0.8 RATIO (0.9-2.4); AST(SGOT) 27 U/L (15-37); Alanine Aminotransfer ALT/SGPT 35 U/L (16-61); Albumin, Serum 2.7 g/dL (3.2-5.0); Alkaline Phosphatase 61 U/L (45-117); Anion Gap 10 (5-15); BUN 10 mg/dL (7-18); BUN/Creat Ratio 10.5 RATIO (10-20); Calcium,Total 8.3 mg/dL (8.5-10.1); Chloride 105 mmol/L (98-107); Creatinine, Serum 0.95 mg/dL (0.70-1.30); EST Glomerular Filtration Rate 84 mL/min (>60); Est Glom Filt Rate - Afr Amer 101 mL/min (>60); Estimated Creatinine Clearance 73.39 ml/min; Globulin 3.4 g/dL (2.2-4.2); Glucose 221 mg/dL (74-106); Magnesium 1.9 mg/dL (1.6-2.6); Phosphorus 1.8 mg/dL (2.5-4.9); Potassium 3.6 mmol/L (3.5-5.1); Protein, Total 6.1 g/dL (6.4-8.2); Sodium Level 140 mmol/L (136-145)
[2018-09-07] MEDS: oxyCODONE 5 MG Tablet PO (10:22)
[2018-09-07] MEDS: Aspirin E.C. 81 MG Tablet PO ×2 (11:22→18:08)
[2018-09-07] MEDS: Famotidine 20 MG Tablet PO (11:22)
[2018-09-07] MEDS: Tamsulosin HCl 0.4 MG Capsule PO (11:22)
[2018-09-07] MEDS: Meloxicam 7.5 MG Tablet PO ×2 (11:22→21:49)
[2018-09-07] MEDS: Senna/Docusate Sodium 1 Tablet 2 TABLET PO ×2 (11:22→21:50)
--- NOTE | 2018-09-07 18:25 | NURSING ---
Pt walked 2 laps in hallway with gait belt and walker, pt tolerated well.
[2018-09-07 18:49] VITALS: BP 127/59; PULSE 84; RESP 16; TEMP 37.2; O2SAT 96
[2018-09-07] MEDS: Pravastatin 80 MG Tablet PO (21:49)
[2018-09-07] MEDS: Zolpidem Tartrate 5 MG Tablet 10 MG PO (23:10)
[2018-09-08] MEDS: Acetaminophen 500 MG Tablet 1000 MG PO ×3 (06:28→20:48)
[2018-09-08 08:18] VITALS: BP 128/78; PULSE 80; RESP 18; TEMP 37.1; O2SAT 95
[2018-09-08] MEDS: Senna/Docusate Sodium 1 Tablet 2 TABLET PO ×2 (10:13→20:47)
[2018-09-08] MEDS: Meloxicam 7.5 MG Tablet PO ×2 (10:13→20:47)
[2018-09-08] MEDS: Aspirin E.C. 81 MG Tablet PO ×2 (10:13→17:26)
[2018-09-08] MEDS: Famotidine 20 MG Tablet PO (10:13)
[2018-09-08] MEDS: Tamsulosin HCl 0.4 MG Capsule PO (10:15)
[2018-09-08] MEDS: oxyCODONE 5 MG Tablet PO ×2 (10:17→20:45)
--- NOTE | 2018-09-08 13:04 | PCM.PN.HOSP ---
Subjective: Patient was seen and examined. Denies any new complains. Been ambulating well in the unit. Objective: Physical exam: General: Alert, Oriented x3, Cooperative, No apparent distress HEENT: Atraumatic, PERRLA, EOMI, Normocephalic Oral: Moist Mucosa Neck: Supple, No JVD, Negative Carotid Bruits Lungs: Clear to auscultation, Normal air movement Cardiovascular: Regular rate, Regular Rhythm, Normal S1, Normal S2, No murmurs Abdomen: Bowel Sounds Present, Soft, Non Tender, Non-Distended, No Hepato-splenomegaly Extremities: No edema, - - Right anterior dressing is clean, intact, slight tenderness at the right hip, range of motion is intact Skin: No rashes, No breakdown Musculoskeletal: No Tenderness to Palpation of Joints or Extremities Lymphatic: No Cervical, Supraclavicular, or Inguinal Adenopathy Neurological: Cranial nerves II-XII grossly intact, Neuro grossly intact Psych/Mental Status: Normal Affect, Appropriate Vitals/I&O's: Vital Signs Temp Pulse Resp BP Pulse Ox 98.8 F 80 18 128/78 H 95 09/08/18 08:18 09/08/18 08:18 09/08/18 08:18 09/08/18 08:18 09/08/18 08:18 Oxygen Delivery Method Room Air Weight: 77.2 kg Body Mass Index (BMI) 25.1 Intake and Output for Last 24 Hours 09/06/18 09/07/18 09/08/18 23:59 23:59 23:59 Intake Total 360 / 360 720 / 720 Output Total 675 / 675 250 / 250 Balance -315 / -315 470 / 470 Current Medications Acetaminophen (Tylenol) 1,000 mg PO Q8 [facility] Last Admin: 09/08/18 06:28 Dose: 1,000 mg Aspirin (Ecotrin) 81 mg PO BIDCM [facility] Last Admin: 09/08/18 10:13 Dose: 81 mg Bisacodyl (Dulcolax) 10 mg RECTAL .PRN X 1 PRN PRN Reason: Constipation Famotidine (Pepcid) 20 mg PO DAILY [facility] Last Admin: 09/08/18 10:13 Dose: 20 mg Fentanyl (Duragesic Patch) 12 mcg TRANSDERM. Q3D [facility] Last Admin: 09/06/18 14:37 Dose: 12 mcg Magnesium Hydroxide (Milk Of Magnesia) 30 ml PO .PRN X 1 PRN PRN Reason: Constipation Last Admin: 09/06/18 17:12 Dose: 30 ml Meloxicam (Mobic) 7.5 mg PO BID [facility] Last Admin: 09/08/18 10:13 Dose: 7.5 mg Oxycodone HCl (Oxyir) 5 - 10 mg PO Q4H PRN PRN PRN Reason: MOD-SEVERE PAIN (4-10/10) Last Admin: 09/08/18 10:17 Dose: 5 mg Pravastatin Sodium (Pravachol) 80 mg PO QHS [facility] Last Admin: 09/07/18 21:49 Dose: 80 mg Senna/Docusate Sodium (Senokot-S, Gloria-Colace) 2 tablet PO BID [facility] Last Admin: 09/08/18 10:13 Dose: 2 tablet Tamsulosin HCl (Flomax) 0.4 mg PO DAILY [facility] Last Admin: 09/08/18 10:15 Dose: 0.4 mg Zolpidem Tartrate (Ambien (Generic)) 10 mg PO QHS [facility] Last Admin: 09/07/18 23:10 Dose: 10 mg Medical Necessity - Tobacco Use Smoking Status: Never smoker Assessment/Plan 68-year-old with past medical history of hip osteoarthritis, hyperlipidemia, BPH, insomnia who comes in for acute rehab status post right direct anterior total hip replacement on 09/04/18. 1. Debility secondary to recent hip replacement, postop day #3, pain is controlled, will follow up on orthopedic recommendation, physical therapy Continue with pain control 2. Postop anemia, no signs or worsening bleeding, will be monitored. 3. Hyperlipidemia, on statin 4. BPH on Flomax 5. DVT prophylaxis per orthopedics recommendations Code Visit Inpatient E&M: 88988 Subs Hosp L2
[2018-09-08 18:45] VITALS: BP 127/67; PULSE 91; RESP 17; TEMP 37.1; O2SAT 97
[2018-09-08] MEDS: Pravastatin 80 MG Tablet PO (20:47)
[2018-09-08 22:15] VITALS: BP 165/88; PULSE 99; RESP 18; TEMP 37.1; O2SAT 97
--- NOTE | 2018-09-08 22:15 | NURSING ---
pt ambulated around unit x2 at this time. gait belt in place, pt tolerated well.
[2018-09-08 22:17] VITALS: BP 158/86; PULSE 96; RESP 18; O2SAT 99
[2018-09-08] MEDS: Zolpidem Tartrate 5 MG Tablet 10 MG PO (22:28)
[2018-09-08 22:30] VITALS: BP 143/79; PULSE 85; RESP 18; O2SAT 96
[2018-09-08 23:00] VITALS: BP 128/78; PULSE 72; RESP 18; O2SAT 98
--- NOTE | 2018-09-08 23:10 | NURSING ---
pt states that he feels different after ambulating the unit. pt assisted into bed by this nurse and RN at 2215. BP taken in left arm, semi-fowlers position- BP- 165/88. BP then taken in rt arm, same position, BP- 158/86. staff talking with pt, no changes in speech or cognition noted. BP rechecked at 2230, BP- 143/79 with HR of 85. pt states he feels better at this time. pt questioning the possibility of blood clot. this nurse reassured pt that nursing staff assesses pt BID and monitors for changes and s/sx of DVT. pt stated to this nurse I will just tell you, I am a hypochondriac. this nurse reassured pt that staff will continue to monitor for changes. RN reassured pt that he is in the right place, and he will be taken care of accordingly with any issues that may arise. BP rechecked at 2300, BP- 128/78. will continue to monitor.
[2018-09-09] MEDS: Acetaminophen 500 MG Tablet 1000 MG PO ×3 (06:50→21:25)
--- NOTE | 2018-09-09 07:17 | NURSING ---
Dressing to rt hip removed this am. no drainage noted to dressing. dry drainage noted to surgical incision. sutures and steri-strips intact. pt tolerated procedure well.
[2018-09-09 07:31] VITALS: BP 128/73; PULSE 85; RESP 18; TEMP 36.8; O2SAT 97
[2018-09-09] MEDS: oxyCODONE 5 MG Tablet PO ×3 (07:54→23:51)
[2018-09-09] MEDS: Senna/Docusate Sodium 1 Tablet 2 TABLET PO ×2 (07:55→21:25)
[2018-09-09] MEDS: Meloxicam 7.5 MG Tablet PO ×2 (07:55→21:25)
[2018-09-09] MEDS: Tamsulosin HCl 0.4 MG Capsule PO (07:55)
[2018-09-09] MEDS: Famotidine 20 MG Tablet PO (08:15)
[2018-09-09] MEDS: Aspirin E.C. 81 MG Tablet PO ×2 (09:42→17:02)
--- NOTE | 2018-09-09 10:44 | PCM.PN.NEU ---
Subjective: Patient seen and examined. No Acute events over night. Tolerating therapy. Pain is well controlled on current medications. Incision site is C/D/I, no drainage noted. Denies any calf pain, or Shortness of breath. - Physical Exam General: Alert, Oriented x3, Cooperative HEENT: Atraumatic, PERRLA, EOMI, Normocephalic Neck: Supple, No JVD, Negative Carotid Bruits Lungs: Clear to auscultation, Normal air movement Cardiovascular: Regular rate, No murmurs Abdomen: Bowel Sounds Present, Soft, Non Tender Extremities: No edema, Capillary Refill Less than 3 Seconds Skin: No rashes, No breakdown Musculoskeletal: No Tenderness to Palpation of Joints or Extremities Neurological: Cranial nerves II-XII grossly intact Psych/Mental Status: Normal Affect, Appropriate, Alert and oriented to time, place, person, mood and affect Vital Signs Temp Pulse Resp BP Pulse Ox 98.3 F 85 18 128/73 H 97 09/09/18 07:31 09/09/18 07:31 09/09/18 07:31 09/09/18 07:31 09/09/18 07:31 Oxygen Delivery Method Room Air Weight: 77.2 kg Body Mass Index (BMI) 25.1 Intake and Output for Last 24 Hours 09/07/18 09/08/18 09/09/18 23:59 23:59 23:59 Intake Total 720 / 720 Output Total 250 / 250 600 / 600 Balance 470 / 470 -600 / -600 Active Medications Acetaminophen (Tylenol) 1,000 mg PO Q8 [facility] Last Admin: 09/09/18 06:50 Dose: 1,000 mg Aspirin (Ecotrin) 81 mg PO BIDCM [facility] Last Admin: 09/09/18 09:42 Dose: 81 mg Bisacodyl (Dulcolax) 10 mg RECTAL .PRN X 1 PRN PRN Reason: Constipation Cyclobenzaprine HCl (Flexeril) 5 mg PO DAILY PRN PRN PRN Reason: SPASMS Famotidine (Pepcid) 20 mg PO DAILY [facility] Last Admin: 09/09/18 08:15 Dose: 20 mg Fentanyl (Duragesic Patch) 12 mcg TRANSDERM. Q3D [facility] Last Admin: 09/06/18 14:37 Dose: 12 mcg Magnesium Hydroxide (Milk Of Magnesia) 30 ml PO .PRN X 1 PRN PRN Reason: Constipation Last Admin: 09/06/18 17:12 Dose: 30 ml Meloxicam (Mobic) 7.5 mg PO BID [facility] Last Admin: 09/09/18 07:55 Dose: 7.5 mg Oxycodone HCl (Oxyir) 5 - 10 mg PO Q4H PRN PRN PRN Reason: MOD-SEVERE PAIN (-09/04) Last Admin: 09/09/18 07:54 Dose: 5 mg Pravastatin Sodium (Pravachol) 80 mg PO QHS [facility] Last Admin: 09/08/18 20:47 Dose: 80 mg Senna/Docusate Sodium (Senokot-S, Gloria-Colace) 2 tablet PO BID [facility] Last Admin: 09/09/18 07:55 Dose: 2 tablet Tamsulosin HCl (Flomax) 0.4 mg PO DAILY [facility] Last Admin: 09/09/18 07:55 Dose: 0.4 mg Zolpidem Tartrate (Ambien (Generic)) 10 mg PO QHS [facility] Last Admin: 09/08/18 22:28 Dose: 10 mg Medical Necessity - Tobacco Use Smoking Status: Never smoker Assessment/Plan Debility 2/2 Right anterior total hip replacement on 09/04. Complicated by a history of hip osteoarthritis, Plan: - Physical therapy for gait and balance - Occupational Therapy for ADLs - Speech therapy - As needed analgesics - Bowel protocol - Postop anemia, drop in hemoglobin from 14.4-11.3, no signs of ongoing bleed, continue to monitor - Hx of HLD - continue home dose of statin statin - Hx of BPH on Flomax - DVT prophylaxis per orthopedics recommendations, ASA 81mg BID
--- NOTE | 2018-09-09 10:48 | PN.NEURO_ITS ---
Subjective: Patient seen and examined. No Acute events over night. Tolerating therapy. Pain is well controlled on current medications. Incision site is C/D/I, no drainage noted. Denies any calf pain, or Shortness of breath. - Physical Exam General: Alert, Oriented x3, Cooperative HEENT: Atraumatic, PERRLA, EOMI, Normocephalic Neck: Supple, No JVD, Negative Carotid Bruits Lungs: Clear to auscultation, Normal air movement Cardiovascular: Regular rate, No murmurs Abdomen: Bowel Sounds Present, Soft, Non Tender Extremities: No edema, Capillary Refill Less than 3 Seconds Skin: No rashes, No breakdown Musculoskeletal: No Tenderness to Palpation of Joints or Extremities Neurological: Cranial nerves II-XII grossly intact Psych/Mental Status: Normal Affect, Appropriate, Alert and oriented to time, place, person, mood and affect Vital Signs Temp Pulse Resp BP Pulse Ox 98.3 F 85 18 128/73 H 97 09/09/18 07:31 09/09/18 07:31 09/09/18 07:31 09/09/18 07:31 09/09/18 07:31 Oxygen Delivery Method Room Air Weight: 77.2 kg Body Mass Index (BMI) 25.1 Intake and Output for Last 24 Hours 09/07/18 09/08/18 09/09/18 23:59 23:59 23:59 Intake Total 720 / 720 Output Total 250 / 250 600 / 600 Balance 470 / 470 -600 / -600 Active Medications Acetaminophen (Tylenol) 1,000 mg PO Q8 [facility] Last Admin: 09/09/18 06:50 Dose: 1,000 mg Aspirin (Ecotrin) 81 mg PO BIDCM [facility] Last Admin: 09/09/18 09:42 Dose: 81 mg Bisacodyl (Dulcolax) 10 mg RECTAL .PRN X 1 PRN PRN Reason: Constipation Cyclobenzaprine HCl (Flexeril) 5 mg PO DAILY PRN PRN PRN Reason: SPASMS Famotidine (Pepcid) 20 mg PO DAILY [facility] Last Admin: 09/09/18 08:15 Dose: 20 mg Fentanyl (Duragesic Patch) 12 mcg TRANSDERM. Q3D [facility] Last Admin: 09/06/18 14:37 Dose: 12 mcg Magnesium Hydroxide (Milk Of Magnesia) 30 ml PO .PRN X 1 PRN PRN Reason: Constipation Last Admin: 09/06/18 17:12 Dose: 30 ml Meloxicam (Mobic) 7.5 mg PO BID [facility] Last Admin: 09/09/18 07:55 Dose: 7.5 mg Oxycodone HCl (Oxyir) 5 - 10 mg PO Q4H PRN PRN PRN Reason: MOD-SEVERE PAIN (-09/04) Last Admin: 09/09/18 07:54 Dose: 5 mg Pravastatin Sodium (Pravachol) 80 mg PO QHS [facility] Last Admin: 09/08/18 20:47 Dose: 80 mg Senna/Docusate Sodium (Senokot-S, Gloria-Colace) 2 tablet PO BID [facility] Last Admin: 09/09/18 07:55 Dose: 2 tablet Tamsulosin HCl (Flomax) 0.4 mg PO DAILY [facility] Last Admin: 09/09/18 07:55 Dose: 0.4 mg Zolpidem Tartrate (Ambien (Generic)) 10 mg PO QHS [facility] Last Admin: 09/08/18 22:28 Dose: 10 mg Medical Necessity - Tobacco Use Smoking Status: Never smoker Assessment/Plan Debility 2/2 Right anterior total hip replacement on 09/04. Complicated by a history of hip osteoarthritis, Plan: - Physical therapy for gait and balance - Occupational Therapy for ADLs - Speech therapy - As needed analgesics - Bowel protocol - Postop anemia, drop in hemoglobin from 14.4-11.3, no signs of ongoing bleed, continue to monitor - Hx of HLD - continue home dose of statin statin - Hx of BPH on Flomax - DVT prophylaxis per orthopedics recommendations, ASA 81mg BID
--- NOTE | 2018-09-09 15:12 | NURSING ---
pt concerned about asa bid d/t taking mobic and the interaction. spoke with sharyn SCHULTZ, ok to take d/t mobic was decreased to 7.5 mg from 15 mg. patient verbalized understanding and agreement to take asa bid for dvt prophylaxis.
[2018-09-09] MEDS: Pravastatin 80 MG Tablet PO (21:25)
[2018-09-09 22:00] VITALS: BP 124/72; PULSE 82; RESP 18; TEMP 36.6; O2SAT 95
[2018-09-09] MEDS: Zolpidem Tartrate 5 MG Tablet 10 MG PO (22:59)
[2018-09-10] MEDS: Acetaminophen 500 MG Tablet 1000 MG PO ×3 (06:36→21:56)
[2018-09-10] MEDS: Meloxicam 7.5 MG Tablet PO ×2 (07:55→21:56)
[2018-09-10] MEDS: Tamsulosin HCl 0.4 MG Capsule PO (07:55)
[2018-09-10] MEDS: Aspirin E.C. 81 MG Tablet PO ×2 (07:55→18:18)
[2018-09-10] MEDS: Senna/Docusate Sodium 1 Tablet 2 TABLET PO ×2 (07:56→21:57)
[2018-09-10] MEDS: oxyCODONE 5 MG Tablet PO ×3 (07:56→23:38)
[2018-09-10] MEDS: Famotidine 20 MG Tablet PO (07:56)
[2018-09-10 09:50] VITALS: BP 110/68; PULSE 83; RESP 18; TEMP 36.7; O2SAT 96
--- NOTE | 2018-09-10 11:22 | PN_ITS ---
Subjective: Patient was seen and examined. Ambulating well. Denies chest pain, dizziness. Objective: Physical exam: General: Alert, Oriented x3, Cooperative, No apparent distress HEENT: Atraumatic, PERRLA, EOMI, Normocephalic Oral: Moist Mucosa Neck: Supple, No JVD, Negative Carotid Bruits Lungs: Clear to auscultation, Normal air movement Cardiovascular: Regular rate, Regular Rhythm, Normal S1, Normal S2, No murmurs Abdomen: Bowel Sounds Present, Soft, Non Tender, Non-Distended, No Hepato- splenomegaly Extremities: No edema, - - Right anterior dressing is clean, intact, slight tenderness at the right hip, range of motion is intact Skin: No rashes, No breakdown Musculoskeletal: No Tenderness to Palpation of Joints or Extremities Lymphatic: No Cervical, Supraclavicular, or Inguinal Adenopathy Neurological: Cranial nerves II-XII grossly intact, Neuro grossly intact Psych/Mental Status: Normal Affect, Appropriate Vitals/I&O's: Vital Signs Temp Pulse Resp BP Pulse Ox 98.1 F 83 18 110/68 96 09/10/18 09:50 09/10/18 09:50 09/10/18 09:50 09/10/18 09:50 09/10/18 09:50 Oxygen Delivery Method Room Air Weight: 77.2 kg Body Mass Index (BMI) 25.1 Intake and Output for Last 24 Hours 09/08/18 09/09/18 09/10/18 23:59 23:59 23:59 Intake Total 360 / 360 240 / 240 Output Total 600 / 600 Balance -600 / -600 360 / 360 240 / 240 Current Medications Acetaminophen (Tylenol) 1,000 mg PO Q8 [facility] Last Admin: 09/10/18 06:36 Dose: 1,000 mg Aspirin (Ecotrin) 81 mg PO BIDCM [facility] Last Admin: 09/10/18 07:55 Dose: 81 mg Bisacodyl (Dulcolax) 10 mg RECTAL .PRN X 1 PRN PRN Reason: Constipation Cyclobenzaprine HCl (Flexeril) 5 mg PO DAILY PRN PRN PRN Reason: SPASMS Last Admin: 09/10/18 09:14 Dose: 5 mg Famotidine (Pepcid) 20 mg PO DAILY [facility] Last Admin: 09/10/18 07:56 Dose: 20 mg Fentanyl (Duragesic Patch) 12 mcg TRANSDERM. Q3D [facility] Last Admin: 09/09/18 13:59 Dose: 12 mcg Magnesium Hydroxide (Milk Of Magnesia) 30 ml PO .PRN X 1 PRN PRN Reason: Constipation Last Admin: 09/06/18 17:12 Dose: 30 ml Meloxicam (Mobic) 7.5 mg PO BID [facility] Last Admin: 09/10/18 07:55 Dose: 7.5 mg Oxycodone HCl (Oxyir) 5 - 10 mg PO Q4H PRN PRN PRN Reason: MOD-SEVERE PAIN (-09/04) Last Admin: 09/10/18 07:56 Dose: 10 mg Pravastatin Sodium (Pravachol) 80 mg PO QHS [facility] Last Admin: 09/09/18 21:25 Dose: 80 mg Senna/Docusate Sodium (Senokot-S, Gloria-Colace) 2 tablet PO BID [facility] Last Admin: 09/10/18 07:56 Dose: 2 tablet Tamsulosin HCl (Flomax) 0.4 mg PO DAILY [facility] Last Admin: 09/10/18 07:55 Dose: 0.4 mg Zolpidem Tartrate (Ambien (Generic)) 10 mg PO QHS [facility] Last Admin: 09/09/18 22:59 Dose: 10 mg Medical Necessity - Tobacco Use Smoking Status: Never smoker Assessment/Plan 68-year-old with past medical history of right hip osteoarthritis, hyperlipidemia, BPH, insomnia admitted for acute rehab status post right direct anterior total hip replacement on 09/04/18. 1. Debility secondary to recent hip replacement, patient is ambulating well. Will continue per rehab 2. Postop anemia, Hb 10.8, stable 3. Hyperlipidemia, on statin 4. BPH on Flomax 5. DVT prophylaxis per orthopedics recommendations Code Visit Inpatient E&M: 64194 Subs Hosp L2
--- NOTE | 2018-09-10 17:02 | PN.NEURO_ITS ---
Subjective: Patient seen and examined. No new complaints. Ambulating well on the unit, tolerating therapy. Pain is well controlled on current medications. Incision is C/D/I well approximated. - Physical Exam General: Alert, Oriented x3, Cooperative HEENT: Atraumatic, PERRLA, EOMI, Normocephalic Neck: Supple, No JVD, Negative Carotid Bruits Lungs: Clear to auscultation, Normal air movement Cardiovascular: Regular rate, No murmurs Abdomen: Bowel Sounds Present, Soft, Non Tender Extremities: No edema, Capillary Refill Less than 3 Seconds Skin: No rashes, No breakdown Musculoskeletal: No Tenderness to Palpation of Joints or Extremities Neurological: Cranial nerves II-XII grossly intact Psych/Mental Status: Normal Affect, Appropriate, Alert and oriented to time, place, person, mood and affect Vital Signs Temp Pulse Resp BP Pulse Ox 98.1 F 83 18 110/68 96 09/10/18 09:50 09/10/18 09:50 09/10/18 09:50 09/10/18 09:50 09/10/18 09:50 Oxygen Delivery Method Room Air Weight: 77.2 kg Body Mass Index (BMI) 25.1 Intake and Output for Last 24 Hours 09/08/18 09/09/18 09/10/18 23:59 23:59 23:59 Intake Total 360 / 360 240 / 240 Output Total 600 / 600 Balance -600 / -600 360 / 360 240 / 240 Active Medications Acetaminophen (Tylenol) 1,000 mg PO Q8 [facility] Last Admin: 09/10/18 14:44 Dose: 1,000 mg Aspirin (Ecotrin) 81 mg PO BIDCM [facility] Last Admin: 09/10/18 07:55 Dose: 81 mg Bisacodyl (Dulcolax) 10 mg RECTAL .PRN X 1 PRN PRN Reason: Constipation Cyclobenzaprine HCl (Flexeril) 5 mg PO DAILY PRN PRN PRN Reason: SPASMS Last Admin: 09/10/18 09:14 Dose: 5 mg Famotidine (Pepcid) 20 mg PO DAILY [facility] Last Admin: 09/10/18 07:56 Dose: 20 mg Fentanyl (Duragesic Patch) 12 mcg TRANSDERM. Q3D [facility] Last Admin: 09/09/18 13:59 Dose: 12 mcg Magnesium Hydroxide (Milk Of Magnesia) 30 ml PO .PRN X 1 PRN PRN Reason: Constipation Last Admin: 09/06/18 17:12 Dose: 30 ml Meloxicam (Mobic) 7.5 mg PO BID [facility] Last Admin: 09/10/18 07:55 Dose: 7.5 mg Oxycodone HCl (Oxyir) 5 - 10 mg PO Q4H PRN PRN PRN Reason: MOD-SEVERE PAIN (-09/04) Last Admin: 09/10/18 12:48 Dose: 10 mg Pravastatin Sodium (Pravachol) 80 mg PO QHS [facility] Last Admin: 09/09/18 21:25 Dose: 80 mg Senna/Docusate Sodium (Senokot-S, Gloria-Colace) 2 tablet PO BID [facility] Last Admin: 09/10/18 07:56 Dose: 2 tablet Tamsulosin HCl (Flomax) 0.4 mg PO DAILY [facility] Last Admin: 09/10/18 07:55 Dose: 0.4 mg Zolpidem Tartrate (Ambien (Generic)) 10 mg PO QHS [facility] Last Admin: 09/09/18 22:59 Dose: 10 mg Medical Necessity - Tobacco Use Smoking Status: Never smoker Assessment/Plan Debility 2/2 Right anterior total hip replacement on 09/04. Complicated by a history of hip osteoarthritis, Plan: - Physical therapy for gait and balance - Occupational Therapy for ADLs - Speech therapy - As needed analgesics - Bowel protocol - Postop anemia, drop in hemoglobin from 14.4-11.3, no signs of ongoing bleed, continue to monitor - Hx of HLD - continue home dose of statin statin - Hx of BPH on Flomax - DVT prophylaxis per orthopedics recommendations, ASA 81mg BID
[2018-09-10 21:50] VITALS: BP 124/67; PULSE 75; RESP 18; TEMP 36.8; O2SAT 97
[2018-09-10] MEDS: Zolpidem Tartrate 5 MG Tablet 10 MG PO (21:57)
[2018-09-10] MEDS: Pravastatin 80 MG Tablet PO (21:57)
[2018-09-11] MEDS: Acetaminophen 500 MG Tablet 1000 MG PO ×3 (05:22→22:20)
[2018-09-11 07:02] VITALS: BP 134/75; PULSE 88; RESP 20; TEMP 36.9; O2SAT 96
[2018-09-11] MEDS: Meloxicam 7.5 MG Tablet PO ×2 (07:39→22:21)
[2018-09-11] MEDS: Famotidine 20 MG Tablet PO (07:39)
[2018-09-11] MEDS: Aspirin E.C. 81 MG Tablet PO ×2 (07:39→17:53)
[2018-09-11] MEDS: Tamsulosin HCl 0.4 MG Capsule PO (07:39)
[2018-09-11] MEDS: oxyCODONE 5 MG Tablet PO ×2 (07:39→13:12)
[2018-09-11] MEDS: Senna/Docusate Sodium 1 Tablet 2 TABLET PO ×2 (07:40→22:21)
--- NOTE | 2018-09-11 10:23 | PCM.PN.NEU ---
Subjective: Patient seen and examined. No new complaints. Tolerating therapy, has walked greater than 450 feet using a cane. Pain is well controlled on current medications. Incision site is C/D/I, well approximated. Ellyn and steri-strips are intact. No drainage noted, minimal edema along site, no redness noted. - Physical Exam General: Alert, Oriented x3, Cooperative HEENT: Atraumatic, PERRLA, EOMI, Normocephalic Neck: Supple, No JVD, Negative Carotid Bruits Lungs: Clear to auscultation, Normal air movement Cardiovascular: Regular rate, No murmurs Abdomen: Bowel Sounds Present, Soft, Non Tender Extremities: No edema, Capillary Refill Less than 3 Seconds Skin: No rashes, No breakdown Musculoskeletal: No Tenderness to Palpation of Joints or Extremities Neurological: Cranial nerves II-XII grossly intact Psych/Mental Status: Normal Affect, Appropriate, Alert and oriented to time, place, person, mood and affect Vital Signs Temp Pulse Resp BP Pulse Ox 98.5 F 88 20 H 134/75 H 96 09/11/18 07:02 09/11/18 07:02 09/11/18 07:02 09/11/18 07:02 09/11/18 07:02 Oxygen Delivery Method Room Air Weight: 76.9 kg Body Mass Index (BMI) 25.1 Intake and Output for Last 24 Hours 09/09/18 09/10/18 09/11/18 23:59 23:59 23:59 Intake Total 360 / 360 240 / 240 Balance 360 / 360 240 / 240 Active Medications Acetaminophen (Tylenol) 1,000 mg PO Q8 [facility] Last Admin: 09/11/18 05:22 Dose: 1,000 mg Aspirin (Ecotrin) 81 mg PO BIDCM [facility] Last Admin: 09/11/18 07:39 Dose: 81 mg Bisacodyl (Dulcolax) 10 mg RECTAL .PRN X 1 PRN PRN Reason: Constipation Cyclobenzaprine HCl (Flexeril) 5 mg PO DAILY PRN PRN PRN Reason: SPASMS Last Admin: 09/11/18 07:39 Dose: 5 mg Famotidine (Pepcid) 20 mg PO DAILY [facility] Last Admin: 09/11/18 07:39 Dose: 20 mg Fentanyl (Duragesic Patch) 12 mcg TRANSDERM. Q3D [facility] Last Admin: 09/09/18 13:59 Dose: 12 mcg Magnesium Hydroxide (Milk Of Magnesia) 30 ml PO .PRN X 1 PRN PRN Reason: Constipation Last Admin: 09/06/18 17:12 Dose: 30 ml Meloxicam (Mobic) 7.5 mg PO BID [facility] Last Admin: 09/11/18 07:39 Dose: 7.5 mg Oxycodone HCl (Oxyir) 5 - 10 mg PO Q4H PRN PRN PRN Reason: MOD-SEVERE PAIN (-09/04) Last Admin: 09/11/18 07:39 Dose: 10 mg Pravastatin Sodium (Pravachol) 80 mg PO QHS [facility] Last Admin: 09/10/18 21:57 Dose: 80 mg Senna/Docusate Sodium (Senokot-S, Gloria-Colace) 2 tablet PO BID [facility] Last Admin: 09/11/18 07:40 Dose: 2 tablet Tamsulosin HCl (Flomax) 0.4 mg PO DAILY [facility] Last Admin: 09/11/18 07:39 Dose: 0.4 mg Zolpidem Tartrate (Ambien (Generic)) 10 mg PO QHS [facility] Last Admin: 09/10/18 21:57 Dose: 10 mg Medical Necessity - Tobacco Use Smoking Status: Never smoker Assessment/Plan Debility 2/2 Right anterior total hip replacement on 09/04. Complicated by a history of hip osteoarthritis, Plan: - Physical therapy for gait and balance - Occupational Therapy for ADLs - Speech therapy - As needed analgesics - Bowel protocol - Postop anemia, drop in hemoglobin from 14.4-11.3, no signs of ongoing bleed, continue to monitor - Hx of HLD - continue home dose of statin statin - Hx of BPH on Flomax - DVT prophylaxis per orthopedics recommendations, ASA 81mg BID - Incision site is C/D/I, ellyn and steri-strips are intact, no drainage noted.
--- NOTE | 2018-09-11 10:28 | PN.NEURO_ITS ---
Subjective: Patient seen and examined. No new complaints. Tolerating therapy, has walked greater than 450 feet using a cane. Pain is well controlled on current medications. Incision site is C/D/I, well approximated. Ellyn and steri-strips are intact. No drainage noted, minimal edema along site, no redness noted. - Physical Exam General: Alert, Oriented x3, Cooperative HEENT: Atraumatic, PERRLA, EOMI, Normocephalic Neck: Supple, No JVD, Negative Carotid Bruits Lungs: Clear to auscultation, Normal air movement Cardiovascular: Regular rate, No murmurs Abdomen: Bowel Sounds Present, Soft, Non Tender Extremities: No edema, Capillary Refill Less than 3 Seconds Skin: No rashes, No breakdown Musculoskeletal: No Tenderness to Palpation of Joints or Extremities Neurological: Cranial nerves II-XII grossly intact Psych/Mental Status: Normal Affect, Appropriate, Alert and oriented to time, place, person, mood and affect Vital Signs Temp Pulse Resp BP Pulse Ox 98.5 F 88 20 H 134/75 H 96 09/11/18 07:02 09/11/18 07:02 09/11/18 07:02 09/11/18 07:02 09/11/18 07:02 Oxygen Delivery Method Room Air Weight: 76.9 kg Body Mass Index (BMI) 25.1 Intake and Output for Last 24 Hours 09/09/18 09/10/18 09/11/18 23:59 23:59 23:59 Intake Total 360 / 360 240 / 240 Balance 360 / 360 240 / 240 Active Medications Acetaminophen (Tylenol) 1,000 mg PO Q8 [facility] Last Admin: 09/11/18 05:22 Dose: 1,000 mg Aspirin (Ecotrin) 81 mg PO BIDCM [facility] Last Admin: 09/11/18 07:39 Dose: 81 mg Bisacodyl (Dulcolax) 10 mg RECTAL .PRN X 1 PRN PRN Reason: Constipation Cyclobenzaprine HCl (Flexeril) 5 mg PO DAILY PRN PRN PRN Reason: SPASMS Last Admin: 09/11/18 07:39 Dose: 5 mg Famotidine (Pepcid) 20 mg PO DAILY [facility] Last Admin: 09/11/18 07:39 Dose: 20 mg Fentanyl (Duragesic Patch) 12 mcg TRANSDERM. Q3D [facility] Last Admin: 09/09/18 13:59 Dose: 12 mcg Magnesium Hydroxide (Milk Of Magnesia) 30 ml PO .PRN X 1 PRN PRN Reason: Constipation Last Admin: 09/06/18 17:12 Dose: 30 ml Meloxicam (Mobic) 7.5 mg PO BID [facility] Last Admin: 09/11/18 07:39 Dose: 7.5 mg Oxycodone HCl (Oxyir) 5 - 10 mg PO Q4H PRN PRN PRN Reason: MOD-SEVERE PAIN (-09/04) Last Admin: 09/11/18 07:39 Dose: 10 mg Pravastatin Sodium (Pravachol) 80 mg PO QHS [facility] Last Admin: 09/10/18 21:57 Dose: 80 mg Senna/Docusate Sodium (Senokot-S, Gloria-Colace) 2 tablet PO BID [facility] Last Admin: 09/11/18 07:40 Dose: 2 tablet Tamsulosin HCl (Flomax) 0.4 mg PO DAILY [facility] Last Admin: 09/11/18 07:39 Dose: 0.4 mg Zolpidem Tartrate (Ambien (Generic)) 10 mg PO QHS [facility] Last Admin: 09/10/18 21:57 Dose: 10 mg Medical Necessity - Tobacco Use Smoking Status: Never smoker Assessment/Plan Debility 2/2 Right anterior total hip replacement on 09/04. Complicated by a history of hip osteoarthritis, Plan: - Physical therapy for gait and balance - Occupational Therapy for ADLs - Speech therapy - As needed analgesics - Bowel protocol - Postop anemia, drop in hemoglobin from 14.4-11.3, no signs of ongoing bleed, continue to monitor - Hx of HLD - continue home dose of statin statin - Hx of BPH on Flomax - DVT prophylaxis per orthopedics recommendations, ASA 81mg BID - Incision site is C/D/I, ellyn and steri-strips are intact, no drainage noted.
--- NOTE | 2018-09-11 17:31 | NURSING ---
new orders per dr aviles to obtain flu test, decrease ultram to 50 mg only, decrease neurontin 600 mg at bedtime and once lopressor 25 is available to give it. per dr aviles ok for patient stay on unit. dr aviles reviewed ekg results.
[2018-09-11 22:00] VITALS: BP 111/67; PULSE 84; RESP 18; TEMP 36.6; O2SAT 95
[2018-09-11] MEDS: Pravastatin 80 MG Tablet PO (22:21)
[2018-09-11] MEDS: Zolpidem Tartrate 5 MG Tablet 10 MG PO (22:21)
--- NOTE | 2018-09-12 04:45 | NURSING ---
Reviewed and agree with PORCEL[employer] TECHNICIAN documentation and [facility]IMs charting.
[2018-09-12] MEDS: Acetaminophen 500 MG Tablet 1000 MG PO ×3 (05:12→22:46)
[2018-09-12 08:03] VITALS: BP 119/60; PULSE 89; RESP 16; TEMP 36.8; O2SAT 96
[2018-09-12] MEDS: Senna/Docusate Sodium 1 Tablet 2 TABLET PO ×2 (08:30→22:47)
[2018-09-12] MEDS: Famotidine 20 MG Tablet PO (08:31)
[2018-09-12] MEDS: Meloxicam 7.5 MG Tablet PO ×2 (08:31→22:46)
[2018-09-12] MEDS: Tamsulosin HCl 0.4 MG Capsule PO (08:31)
[2018-09-12] MEDS: Aspirin E.C. 81 MG Tablet PO ×2 (08:31→17:23)
[2018-09-12] MEDS: oxyCODONE 5 MG Tablet PO (08:34)
[2018-09-12] MEDS: Magnesium Hydroxide 30 ML UDC PO (08:35)
--- NOTE | 2018-09-12 09:45 | CASEMGMT ---
Team meeting held. Patient present, no support person present at this time. Patient declining for this social media specialist to contact patient girlfriend in regards to meeting. Patient reporting to be able to inform girlfriend on own. No discharge date set at this time. Team did explore setting discharge date for 09/14/18, patient is wanting to see how today goes and then make a decision about the discharge date. This social media specialist to follow up with patient tomorrow morning. Patient is approved 12 Medicare days with a discharge on or by 09/18/18. Support given. Patient plans to discharge to home alone with girlfriend for support at time of discharge. Will continue to follow. Alycia MENDES, SUPERVISOR/PORT DIRECTOR
--- NOTE | 2018-09-12 10:54 | PCM.PN.NEU ---
Subjective: Staffed in team meeting. Family was not at bedside, questions where answered. With Physical therapy, he is stand by assist for getting in and out of bed. He is stand by assist for coming to a stand from a sitting position. He has walked over 400 feet on the unit and out in the community using a cane. He has gone up and down a flight of stairs at standby assist. With Occupational therapy, he is setup for bathing, he is able to do all his own bathing, he does need help with washing just his left foot other grigsby, he can do it all himself. With Nursing he is doing well, his incision is well approximated, Steri-strips are intact the incision is C/D/I. there is some slight edema along the incision line, overall the incision is healing nicely. The plan is for discharge home on Sunday, with outpatient Physical therapy. He will be made MOD I today. - Physical Exam General: Alert, Oriented x3, Cooperative HEENT: Atraumatic, PERRLA, EOMI, Normocephalic Neck: Supple, No JVD, Negative Carotid Bruits Lungs: Clear to auscultation, Normal air movement Cardiovascular: Regular rate, No murmurs Abdomen: Bowel Sounds Present, Soft, Non Tender Extremities: No edema, Capillary Refill Less than 3 Seconds Skin: No rashes, No breakdown Musculoskeletal: No Tenderness to Palpation of Joints or Extremities Neurological: Cranial nerves II-XII grossly intact Psych/Mental Status: Normal Affect, Appropriate, Alert and oriented to time, place, person, mood and affect Vital Signs Temp Pulse Resp BP Pulse Ox 98.3 F 89 16 119/60 96 09/12/18 08:03 09/12/18 08:03 09/12/18 08:03 09/12/18 08:03 09/12/18 08:03 Oxygen Delivery Method Room Air Weight: 76.9 kg Body Mass Index (BMI) 25.1 Intake and Output for Last 24 Hours 09/10/18 09/11/18 09/12/18 23:59 23:59 23:59 Intake Total 240 / 240 240 / 240 Balance 240 / 240 240 / 240 Active Medications Acetaminophen (Tylenol) 1,000 mg PO Q8 [facility] Last Admin: 09/12/18 05:12 Dose: 1,000 mg Aspirin (Ecotrin) 81 mg PO BIDCM [facility] Last Admin: 09/12/18 08:31 Dose: 81 mg Bisacodyl (Dulcolax) 10 mg RECTAL .PRN X 1 PRN PRN Reason: Constipation Cyclobenzaprine HCl (Flexeril) 5 mg PO DAILY PRN PRN PRN Reason: SPASMS Last Admin: 09/11/18 07:39 Dose: 5 mg Famotidine (Pepcid) 20 mg PO DAILY [facility] Last Admin: 09/12/18 08:31 Dose: 20 mg Fentanyl (Duragesic Patch) 12 mcg TRANSDERM. Q3D [facility] Last Admin: 09/09/18 13:59 Dose: 12 mcg Magnesium Hydroxide (Milk Of Magnesia) 30 ml PO .PRN X 1 PRN PRN Reason: Constipation Last Admin: 09/12/18 08:35 Dose: 30 ml Meloxicam (Mobic) 7.5 mg PO BID [facility] Last Admin: 09/12/18 08:31 Dose: 7.5 mg Oxycodone HCl (Oxyir) 5 - 10 mg PO Q4H PRN PRN PRN Reason: MOD-SEVERE PAIN (-09/04) Last Admin: 09/12/18 08:34 Dose: 10 mg Pravastatin Sodium (Pravachol) 80 mg PO QHS [facility] Last Admin: 09/11/18 22:21 Dose: 80 mg Senna/Docusate Sodium (Senokot-S, Gloria-Colace) 2 tablet PO BID [facility] Last Admin: 09/12/18 08:30 Dose: 2 tablet Tamsulosin HCl (Flomax) 0.4 mg PO DAILY [facility] Last Admin: 09/12/18 08:31 Dose: 0.4 mg Zolpidem Tartrate (Ambien (Generic)) 10 mg PO QHS [facility] Last Admin: 09/11/18 22:21 Dose: 10 mg Medical Necessity - Tobacco Use Smoking Status: Never smoker Assessment/Plan Debility 2/2 Right anterior total hip replacement on 09/04. Complicated by a history of hip osteoarthritis, Plan: - Physical therapy for gait and balance - Occupational Therapy for ADLs - Speech therapy - As needed analgesics - Bowel protocol - Postop anemia, drop in hemoglobin from 14.4-11.3, no signs of ongoing bleed, continue to monitor - Hx of HLD - continue home dose of statin statin - Hx of BPH on Flomax - DVT prophylaxis per orthopedics recommendations, ASA 81mg BID - Incision site is C/D/I, ellyn and steri-strips are intact, no drainage noted. - Plan is discharge on Sunday, 09/14. Is MOD I in preparation, will discharge with Outpatient Physical therapy.
--- NOTE | 2018-09-12 11:02 | PN.NEURO_ITS ---
Subjective: Staffed in team meeting. Family was not at bedside, questions where answered. With Physical therapy, he is stand by assist for getting in and out of bed. He is stand by assist for coming to a stand from a sitting position. He has walked over 400 feet on the unit and out in the community using a cane. He has gone up and down a flight of stairs at standby assist. With Occupational therapy, he is setup for bathing, he is able to do all his own bathing, he does need help with washing just his left foot other grigsby, he can do it all himself. With Nursing he is doing well, his incision is well approximated, Steri-strips are intact the incision is C/D/I. there is some slight edema along the incision line, overall the incision is healing nicely. The plan is for discharge home on Sunday, with outpatient Physical therapy. He will be made MOD I today. - Physical Exam General: Alert, Oriented x3, Cooperative HEENT: Atraumatic, PERRLA, EOMI, Normocephalic Neck: Supple, No JVD, Negative Carotid Bruits Lungs: Clear to auscultation, Normal air movement Cardiovascular: Regular rate, No murmurs Abdomen: Bowel Sounds Present, Soft, Non Tender Extremities: No edema, Capillary Refill Less than 3 Seconds Skin: No rashes, No breakdown Musculoskeletal: No Tenderness to Palpation of Joints or Extremities Neurological: Cranial nerves II-XII grossly intact Psych/Mental Status: Normal Affect, Appropriate, Alert and oriented to time, place, person, mood and affect Vital Signs Temp Pulse Resp BP Pulse Ox 98.3 F 89 16 119/60 96 09/12/18 08:03 09/12/18 08:03 09/12/18 08:03 09/12/18 08:03 09/12/18 08:03 Oxygen Delivery Method Room Air Weight: 76.9 kg Body Mass Index (BMI) 25.1 Intake and Output for Last 24 Hours 09/10/18 09/11/18 09/12/18 23:59 23:59 23:59 Intake Total 240 / 240 240 / 240 Balance 240 / 240 240 / 240 Active Medications Acetaminophen (Tylenol) 1,000 mg PO Q8 [facility] Last Admin: 09/12/18 05:12 Dose: 1,000 mg Aspirin (Ecotrin) 81 mg PO BIDCM [facility] Last Admin: 09/12/18 08:31 Dose: 81 mg Bisacodyl (Dulcolax) 10 mg RECTAL .PRN X 1 PRN PRN Reason: Constipation Cyclobenzaprine HCl (Flexeril) 5 mg PO DAILY PRN PRN PRN Reason: SPASMS Last Admin: 09/11/18 07:39 Dose: 5 mg Famotidine (Pepcid) 20 mg PO DAILY [facility] Last Admin: 09/12/18 08:31 Dose: 20 mg Fentanyl (Duragesic Patch) 12 mcg TRANSDERM. Q3D [facility] Last Admin: 09/09/18 13:59 Dose: 12 mcg Magnesium Hydroxide (Milk Of Magnesia) 30 ml PO .PRN X 1 PRN PRN Reason: Constipation Last Admin: 09/12/18 08:35 Dose: 30 ml Meloxicam (Mobic) 7.5 mg PO BID [facility] Last Admin: 09/12/18 08:31 Dose: 7.5 mg Oxycodone HCl (Oxyir) 5 - 10 mg PO Q4H PRN PRN PRN Reason: MOD-SEVERE PAIN (-09/04) Last Admin: 09/12/18 08:34 Dose: 10 mg Pravastatin Sodium (Pravachol) 80 mg PO QHS [facility] Last Admin: 09/11/18 22:21 Dose: 80 mg Senna/Docusate Sodium (Senokot-S, Gloria-Colace) 2 tablet PO BID [facility] Last Admin: 09/12/18 08:30 Dose: 2 tablet Tamsulosin HCl (Flomax) 0.4 mg PO DAILY [facility] Last Admin: 09/12/18 08:31 Dose: 0.4 mg Zolpidem Tartrate (Ambien (Generic)) 10 mg PO QHS [facility] Last Admin: 09/11/18 22:21 Dose: 10 mg Medical Necessity - Tobacco Use Smoking Status: Never smoker Assessment/Plan Debility 2/2 Right anterior total hip replacement on 09/04. Complicated by a history of hip osteoarthritis, Plan: - Physical therapy for gait and balance - Occupational Therapy for ADLs - Speech therapy - As needed analgesics - Bowel protocol - Postop anemia, drop in hemoglobin from 14.4-11.3, no signs of ongoing bleed, continue to monitor - Hx of HLD - continue home dose of statin statin - Hx of BPH on Flomax - DVT prophylaxis per orthopedics recommendations, ASA 81mg BID - Incision site is C/D/I, ellyn and steri-strips are intact, no drainage noted. - Plan is discharge on Sunday, 09/14. Is MOD I in preparation, will discharge with Outpatient Physical therapy.
[2018-09-12 19:52] VITALS: BP 135/69; PULSE 87; RESP 16; TEMP 36.9; O2SAT 97
[2018-09-12 22:30] VITALS: RESP 16; O2SAT 97
[2018-09-12] MEDS: Pravastatin 80 MG Tablet PO (22:46)
[2018-09-12] MEDS: Zolpidem Tartrate 5 MG Tablet 10 MG PO (22:47)
--- NOTE | 2018-09-13 03:34 | NURSING ---
Reviewed and agree with MAINTENANCE MECHANIC TECHNICIAN documentation and FIMs charting.
[2018-09-13] MEDS: Acetaminophen 500 MG Tablet 1000 MG PO ×3 (06:25→21:36)
[2018-09-13] MEDS: Aspirin E.C. 81 MG Tablet PO ×2 (09:23→17:16)
[2018-09-13] MEDS: Tamsulosin HCl 0.4 MG Capsule PO (09:24)
[2018-09-13] MEDS: Famotidine 20 MG Tablet PO (09:24)
[2018-09-13] MEDS: Meloxicam 7.5 MG Tablet PO (09:24)
[2018-09-13] MEDS: Senna/Docusate Sodium 1 Tablet 2 TABLET PO ×2 (09:24→21:37)
[2018-09-13 09:51] VITALS: BP 120/64; PULSE 67; RESP 16; TEMP 36.9; O2SAT 96
--- NOTE | 2018-09-13 11:50 | CASEMGMT ---
Addendum entered by Alycia Lopez 09/13/18 11:59: Note: Order faxed to [facility] for outpatient physical therapy. With the appointment time being 09/18/18 @ 1:00pm. Social Work student also provided patient with appointment reminder. Patient plans to discharge to home alone with girlfriend for support. With above added note: This psychosocial rehabilitation counselor has reviewed and approved below psychosocial rehabilitation counselor student documentation. Alycia Dudley [employer], [employer] Original Note: social work Follow up with patient in room about discharge date. Patient choosing to discharge 09/14/18. Patient set up transportation home with girlfriend for Sunday. Patient reporting to have walker. Patient does not have any other DME needs at this time. Social work student set up outpatient physical therapy at [facility] on 09/18/18. Nia Dudley social work student
[2018-09-13] MEDS: fentaNYL 25 MCG Patch TRANSDERM. (13:42)
--- NOTE | 2018-09-13 15:57 | PN_ITS ---
Subjective: Patient was seen and examined. Feels well. Getting discharged tomorrow. He denies chest pain, dizziness, SOB. Wanted to know if he can resume his multivitamins on discharge Objective: Physical exam: General: Alert, Oriented x3, Cooperative, No apparent distress HEENT: Atraumatic, PERRLA, EOMI, Normocephalic Oral: Moist Mucosa Neck: Supple, No JVD, Negative Carotid Bruits Lungs: Clear to auscultation, Normal air movement Cardiovascular: Regular rate, Regular Rhythm, Normal S1, Normal S2, No murmurs Abdomen: Bowel Sounds Present, Soft, Non Tender, Non-Distended, No Hepato- splenomegaly Extremities: No edema, - - Right anterior dressing is clean, intact, slight tenderness at the right hip, range of motion is intact Skin: No rashes, No breakdown Musculoskeletal: No Tenderness to Palpation of Joints or Extremities Lymphatic: No Cervical, Supraclavicular, or Inguinal Adenopathy Neurological: Cranial nerves II-XII grossly intact, Neuro grossly intact Psych/Mental Status: Normal Affect, Appropriate Vitals/I&O's: Vital Signs Temp Pulse Resp BP Pulse Ox 98.5 F 67 16 120/64 96 09/13/18 09:51 09/13/18 09:51 09/13/18 09:51 09/13/18 09:51 09/13/18 09:51 Oxygen Delivery Method Room Air Weight: 76.9 kg Body Mass Index (BMI) 25.1 Intake and Output for Last 24 Hours 09/11/18 09/12/18 09/13/18 23:59 23:59 23:59 Intake Total 480 / 480 600 / 600 Balance 480 / 480 600 / 600 Current Medications Acetaminophen (Tylenol) 1,000 mg PO Q8 [facility] Last Admin: 09/13/18 13:43 Dose: 1,000 mg Aspirin (Ecotrin) 81 mg PO BIDCM [facility] Last Admin: 09/13/18 09:23 Dose: 81 mg Bisacodyl (Dulcolax) 10 mg RECTAL .PRN X 1 PRN PRN Reason: Constipation Cyclobenzaprine HCl (Flexeril) 5 mg PO DAILY PRN PRN PRN Reason: SPASMS Last Admin: 09/13/18 12:31 Dose: 5 mg Famotidine (Pepcid) 20 mg PO DAILY [facility] Last Admin: 09/13/18 09:24 Dose: 20 mg Fentanyl (Duragesic Patch) 25 mcg TRANSDERM. Q72H [facility] Last Admin: 09/13/18 13:42 Dose: 25 mcg Magnesium Hydroxide (Milk Of Magnesia) 30 ml PO .PRN X 1 PRN PRN Reason: Constipation Last Admin: 09/12/18 08:35 Dose: 30 ml Meloxicam (Mobic) 7.5 mg PO BID [facility] Last Admin: 09/13/18 09:24 Dose: 7.5 mg Oxycodone HCl (Oxyir) 5 - 10 mg PO Q4H PRN PRN PRN Reason: MOD-SEVERE PAIN (4-09/04) Last Admin: 09/12/18 08:34 Dose: 10 mg Pravastatin Sodium (Pravachol) 80 mg PO QHS [facility] Last Admin: 09/12/18 22:46 Dose: 80 mg Senna/Docusate Sodium (Senokot-S, Gloria-Colace) 2 tablet PO BID [facility] Last Admin: 09/13/18 09:24 Dose: 2 tablet Tamsulosin HCl (Flomax) 0.4 mg PO DAILY [facility] Last Admin: 09/13/18 09:24 Dose: 0.4 mg Zolpidem Tartrate (Ambien (Generic)) 10 mg PO QHS [facility] Last Admin: 09/12/18 22:47 Dose: 10 mg Medical Necessity - Tobacco Use Smoking Status: Never smoker Assessment/Plan 68-year-old with past medical history of right hip osteoarthritis, hyperlipidemia, BPH, insomnia admitted for acute rehab status post right direct anterior total hip replacement on 09/04/18. 1. Debility secondary to recent hip replacement, patient is ambulating well. Will continue per rehab 2. Postop anemia, Hb 10.8, stable 3. Hyperlipidemia, on statin 4. BPH on Flomax 5. DVT prophylaxis per orthopedics recommendations Code Visit Inpatient E&M: 86477 Subs Hosp L2
--- NOTE | 2018-09-13 16:30 | PCM.RU.DC ---
Rehab Discharge Summary DATE OF ADMISSION: 09/06/18 DATE OF DISCHARGE: 09/13/18 - Rehab Diagnosis Right Total hip replacement - Physical Exam General: Alert, Oriented x3, Cooperative HEENT: Atraumatic, PERRLA, EOMI, Normocephalic Neck: Supple, No JVD, Negative Carotid Bruits Lungs: Clear to auscultation, Normal air movement Cardiovascular: Regular rate, No murmurs Abdomen: Bowel Sounds Present, Soft, Non Tender Extremities: No edema, Capillary Refill Less than 3 Seconds Skin: No rashes, No breakdown Musculoskeletal: No Tenderness to Palpation of Joints or Extremities Neurological: Cranial nerves II-XII grossly intact Psych/Mental Status: Normal Affect, Appropriate, Alert and oriented to time, place, person, mood and affect Vital Signs Temp Pulse Resp BP Pulse Ox 98.5 F 67 16 120/64 96 09/13/18 09:51 09/13/18 09:51 09/13/18 09:51 09/13/18 09:51 09/13/18 09:51 Oxygen Delivery Method Room Air Weight: 76.9 kg Body Mass Index (BMI) 25.1 Intake and Output for Last 24 Hours 09/11/18 09/12/18 09/13/18 23:59 23:59 23:59 Intake Total 480 / 480 600 / 600 Balance 480 / 480 600 / 600 Active Medications Acetaminophen (Tylenol) 1,000 mg PO Q8 [facility] Last Admin: 09/13/18 13:43 Dose: 1,000 mg Aspirin (Ecotrin) 81 mg PO BIDCM [facility] Last Admin: 09/13/18 09:23 Dose: 81 mg Bisacodyl (Dulcolax) 10 mg RECTAL .PRN X 1 PRN PRN Reason: Constipation Cyclobenzaprine HCl (Flexeril) 5 mg PO DAILY PRN PRN PRN Reason: SPASMS Last Admin: 09/13/18 12:31 Dose: 5 mg Famotidine (Pepcid) 20 mg PO DAILY [facility] Last Admin: 09/13/18 09:24 Dose: 20 mg Fentanyl (Duragesic Patch) 25 mcg TRANSDERM. Q72H [facility] Last Admin: 09/13/18 13:42 Dose: 25 mcg Magnesium Hydroxide (Milk Of Magnesia) 30 ml PO .PRN X 1 PRN PRN Reason: Constipation Last Admin: 09/12/18 08:35 Dose: 30 ml Meloxicam (Mobic) 7.5 mg PO BID [facility] Last Admin: 09/13/18 09:24 Dose: 7.5 mg Oxycodone HCl (Oxyir) 5 - 10 mg PO Q4H PRN PRN PRN Reason: MOD-SEVERE PAIN (4-09/04) Last Admin: 09/12/18 08:34 Dose: 10 mg Pravastatin Sodium (Pravachol) 80 mg PO QHS [facility] Last Admin: 09/12/18 22:46 Dose: 80 mg Senna/Docusate Sodium (Senokot-S, Gloria-Colace) 2 tablet PO BID [facility] Last Admin: 09/13/18 09:24 Dose: 2 tablet Tamsulosin HCl (Flomax) 0.4 mg PO DAILY [facility] Last Admin: 09/13/18 09:24 Dose: 0.4 mg Zolpidem Tartrate (Ambien (Generic)) 10 mg PO QHS [facility] Last Admin: 09/12/18 22:47 Dose: 10 mg Discharge Activity: May Not Drive, May not drive while taking narcotic pain medications., May Shower, May Take a Tub Bath, - - Use cane for ambulation, Do not soak in a Tub Bath Weight Bearing Status: Weight bearing as tolerated Call your doctor if your incision/area has: Sudden Increased Bleeding, Increased Pain/ Swelling, Increased Redness, Foul Smelling Discharge, Swelling at the incision site Call your doctor if you observe: Fever of 101 or Higher, Coldness, Increased Pain, Numbness or Tingling, Change in Color, Inability to urinate, Inability to have a bowel movement, Using more than one pad per hour, Shortness of breath, Dizziness, Fainting spells, Swelling in the ankles, Chest pain, Prolonged hiccoughing, Increased palpitations (irregular heartbeat), Calf discomfort, Uncontrolled pain Suture Line Care: - - Do not pull steri strips off they will fall off when incision is healed. Home Medications: Medications to take at Discharge Pravastatin Sodium 80 mg PO QHS 08/26/18 Tamsulosin HCl [Flomax] 0.4 mg PO DAILY 08/26/18 Zolpidem Tartrate [Ambien] 10 mg PO QHS 08/26/18 Acetaminophen [Tylenol] 1,000 mg PO Q8 09/06/18 Aspirin E.C. [Ecotrin] 81 mg PO BIDCM 09/06/18 Famotidine [Pepcid] 20 mg PO DAILY 09/06/18 Meloxicam [Mobic] 7.5 mg PO BID 09/06/18 Cyclobenzaprine [Flexeril] 5 mg PO DAILY PRN PRN #30 tablet 09/13/18 Famotidine [Pepcid] 20 mg PO DAILY #60 tablet 09/13/18 fentaNYL patch [Duragesic patch] 25 mcg TRANSDERM. Q72H 6 Days #2 patch 09/13/18 Following Prescrptions Were Given to Patient: Cyclobenzaprine [Flexeril] 5 mg PO DAILY PRN PRN #30 tablet PRN Reason: SPASMS Famotidine [Pepcid] 20 mg PO DAILY #60 tablet fentaNYL patch [Duragesic patch] 25 mcg TRANSDERM. Q72H 6 Days #2 patch Primary Care Physician: Lo Sun MD [Primary Care Provider] - Please Follow Up With: Oumar Kohler When: Sunday Please Follow Up With: [facility] - Physical Therapy When: Sunday Please Follow Up With: Dr. Sun When: Sunday Disposition: Home - with outpatient Physical therapy Minutes spent on discharge:: 40 Patient Condition:: Good Rehab Course The patient is a 68 year old right handed Male, who is admitted to the rehab unit for rehabilitation after a right total hip arthroplasty with Dr. Mcmahan on 09/04 without complications. He has a PMH of hip osteoarthritis, HLD, BPH, and insomnia. He has been having ongoing pain in the right hip for the last year and a half, which had begun to affected his quality of. He was having increased pain with going up and down stairs, driving, and sitting for extended periods of time. He lives alone, in a 1 story home with 2 steps to get into the home, he is previously completely functionally independent and is admitted to the rehab unit in order to restore his previous level of functional independence. Summary of care: Debility 2/2 Right anterior total hip replacement on 09/04. Complicated by a history of hip osteoarthritis, Plan: - Physical therapy for gait and balance - Occupational Therapy for ADLs - Speech therapy - As needed analgesics - Bowel protocol - Postop anemia, drop in hemoglobin from 14.4-11.3, no signs of ongoing bleed, continue to monitor - Hx of HLD - continue home dose of statin statin - Hx of BPH on Flomax - DVT prophylaxis per orthopedics recommendations, ASA 81mg BID - Incision site is C/D/I, ellyn and steri-strips are intact, no drainage noted. - Plan is discharge on Sunday, 09/14. Is MOD I in preparation, will discharge with Outpatient Physical therapy. With Physical therapy, he was stand by assist for getting in and out of bed. He was stand by assist for coming to a stand from a sitting position. He has walked over 400 feet on the unit and out in the community using a cane. He has gone up and down a flight of stairs at standby assist. With Occupational therapy, he was setup for bathing, he was able to do all his own bathing, he does need help with washing just his left foot other grigsby, he can do it all himself. With Nursing he was doing well, his incision is well approximated, Steri-strips are intact the incision is C/D/I. there is some slight edema along the incision line, overall the incision is healing nicely. While in the Rehab Unit (RU) his medical conditions were monitored. While in the RU he improved with therapy and gained strength. His care was complicated and he was able to be discharged home to complete the rest of his care as an outpatient. Meaningful Use Info Meaningful Use Diagnoses (Choose all that apply): None applicable
--- NOTE | 2018-09-13 16:34 | DS.PCM_ITS ---
Rehab Discharge Summary DATE OF ADMISSION: 09/06/18 DATE OF DISCHARGE: 09/13/18 - Rehab Diagnosis Right Total hip replacement - Physical Exam General: Alert, Oriented x3, Cooperative HEENT: Atraumatic, PERRLA, EOMI, Normocephalic Neck: Supple, No JVD, Negative Carotid Bruits Lungs: Clear to auscultation, Normal air movement Cardiovascular: Regular rate, No murmurs Abdomen: Bowel Sounds Present, Soft, Non Tender Extremities: No edema, Capillary Refill Less than 3 Seconds Skin: No rashes, No breakdown Musculoskeletal: No Tenderness to Palpation of Joints or Extremities Neurological: Cranial nerves II-XII grossly intact Psych/Mental Status: Normal Affect, Appropriate, Alert and oriented to time, place, person, mood and affect Vital Signs Temp Pulse Resp BP Pulse Ox 98.5 F 67 16 120/64 96 09/13/18 09:51 09/13/18 09:51 09/13/18 09:51 09/13/18 09:51 09/13/18 09:51 Oxygen Delivery Method Room Air Weight: 76.9 kg Body Mass Index (BMI) 25.1 Intake and Output for Last 24 Hours 09/11/18 09/12/18 09/13/18 23:59 23:59 23:59 Intake Total 480 / 480 600 / 600 Balance 480 / 480 600 / 600 Active Medications Acetaminophen (Tylenol) 1,000 mg PO Q8 [facility] Last Admin: 09/13/18 13:43 Dose: 1,000 mg Aspirin (Ecotrin) 81 mg PO BIDCM [facility] Last Admin: 09/13/18 09:23 Dose: 81 mg Bisacodyl (Dulcolax) 10 mg RECTAL .PRN X 1 PRN PRN Reason: Constipation Cyclobenzaprine HCl (Flexeril) 5 mg PO DAILY PRN PRN PRN Reason: SPASMS Last Admin: 09/13/18 12:31 Dose: 5 mg Famotidine (Pepcid) 20 mg PO DAILY [facility] Last Admin: 09/13/18 09:24 Dose: 20 mg Fentanyl (Duragesic Patch) 25 mcg TRANSDERM. Q72H [facility] Last Admin: 09/13/18 13:42 Dose: 25 mcg Magnesium Hydroxide (Milk Of Magnesia) 30 ml PO .PRN X 1 PRN PRN Reason: Constipation Last Admin: 09/12/18 08:35 Dose: 30 ml Meloxicam (Mobic) 7.5 mg PO BID [facility] Last Admin: 09/13/18 09:24 Dose: 7.5 mg Oxycodone HCl (Oxyir) 5 - 10 mg PO Q4H PRN PRN PRN Reason: MOD-SEVERE PAIN (4-09/04) Last Admin: 09/12/18 08:34 Dose: 10 mg Pravastatin Sodium (Pravachol) 80 mg PO QHS [facility] Last Admin: 09/12/18 22:46 Dose: 80 mg Senna/Docusate Sodium (Senokot-S, Gloria-Colace) 2 tablet PO BID [facility] Last Admin: 09/13/18 09:24 Dose: 2 tablet Tamsulosin HCl (Flomax) 0.4 mg PO DAILY [facility] Last Admin: 09/13/18 09:24 Dose: 0.4 mg Zolpidem Tartrate (Ambien (Generic)) 10 mg PO QHS [facility] Last Admin: 09/12/18 22:47 Dose: 10 mg Discharge Activity: May Not Drive, May not drive while taking narcotic pain medications., May Shower, May Take a Tub Bath, - - Use cane for ambulation, Do not soak in a Tub Bath Weight Bearing Status: Weight bearing as tolerated Call your doctor if your incision/area has: Sudden Increased Bleeding, Increased Pain/ Swelling, Increased Redness, Foul Smelling Discharge, Swelling at the incision site Call your doctor if you observe: Fever of 101 or Higher, Coldness, Increased Pain, Numbness or Tingling, Change in Color, Inability to urinate, Inability to have a bowel movement, Using more than one pad per hour, Shortness of breath, Dizziness, Fainting spells, Swelling in the ankles, Chest pain, Prolonged hiccoughing, Increased palpitations (irregular heartbeat), Calf discomfort, Uncontrolled pain Suture Line Care: - - Do not pull steri strips off they will fall off when incision is healed. Home Medications: Medications to take at Discharge Pravastatin Sodium 80 mg PO QHS 08/26/18 Tamsulosin HCl [Flomax] 0.4 mg PO DAILY 08/26/18 Zolpidem Tartrate [Ambien] 10 mg PO QHS 08/26/18 Acetaminophen [Tylenol] 1,000 mg PO Q8 09/06/18 Aspirin E.C. [Ecotrin] 81 mg PO BIDCM 09/06/18 Famotidine [Pepcid] 20 mg PO DAILY 09/06/18 Meloxicam [Mobic] 7.5 mg PO BID 09/06/18 Cyclobenzaprine [Flexeril] 5 mg PO DAILY PRN PRN #30 tablet 09/13/18 Famotidine [Pepcid] 20 mg PO DAILY #60 tablet 09/13/18 fentaNYL patch [Duragesic patch] 25 mcg TRANSDERM. Q72H 6 Days #2 patch 09/13/18 Following Prescrptions Were Given to Patient: Cyclobenzaprine [Flexeril] 5 mg PO DAILY PRN PRN #30 tablet PRN Reason: SPASMS Famotidine [Pepcid] 20 mg PO DAILY #60 tablet fentaNYL patch [Duragesic patch] 25 mcg TRANSDERM. Q72H 6 Days #2 patch Primary Care Physician: Lo Sun MD [Primary Care Provider] - Please Follow Up With: Oumar Kohler When: Sunday Please Follow Up With: [facility] - Physical Therapy When: Sunday Please Follow Up With: Dr. Sun When: Sunday Disposition: Home - with outpatient Physical therapy Minutes spent on discharge:: 40 Patient Condition:: Good Rehab Course The patient is a 68 year old right handed Male, who is admitted to the rehab unit for rehabilitation after a right total hip arthroplasty with Dr. Mcmahan on 09/04 without complications. He has a PMH of hip osteoarthritis, HLD, BPH, and insomnia. He has been having ongoing pain in the right hip for the last year and a half, which had begun to affected his quality of. He was having increased pain with going up and down stairs, driving, and sitting for extended periods of time. He lives alone, in a 1 story home with 2 steps to get into the home, he is previously completely functionally independent and is admitted to the rehab unit in order to restore his previous level of functional independence. Summary of care: Debility 2/2 Right anterior total hip replacement on 09/04. Complicated by a history of hip osteoarthritis, Plan: - Physical therapy for gait and balance - Occupational Therapy for ADLs - Speech therapy - As needed analgesics - Bowel protocol - Postop anemia, drop in hemoglobin from 14.4-11.3, no signs of ongoing bleed, continue to monitor - Hx of HLD - continue home dose of statin statin - Hx of BPH on Flomax - DVT prophylaxis per orthopedics recommendations, ASA 81mg BID - Incision site is C/D/I, ellyn and steri-strips are intact, no drainage noted. - Plan is discharge on Sunday, 09/14. Is MOD I in preparation, will discharge with Outpatient Physical therapy. With Physical therapy, he was stand by assist for getting in and out of bed. He was stand by assist for coming to a stand from a sitting position. He has walked over 400 feet on the unit and out in the community using a cane. He has gone up and down a flight of stairs at standby assist. With Occupational therapy, he was setup for bathing, he was able to do all his own bathing, he does need help with washing just his left foot other grigsby, he can do it all himself. With Nursing he was doing well, his incision is well approximated, Steri-strips are intact the incision is C/D/I. there is some slight edema along the incision line, overall the incision is healing nicely. While in the Rehab Unit (RU) his medical conditions were monitored. While in the RU he improved with therapy and gained strength. His care was complicated and he was able to be discharged home to complete the rest of his care as an outpatient. Meaningful Use Info Meaningful Use Diagnoses (Choose all that apply): None applicable
--- NOTE | 2018-09-13 16:46 | DCINST_ITS ---
- Discharge Diagnoses Reason(s) for Visit for Discharge Instructions: Right total hip replacement You will use the following diet at home:: Regular Your food should be the consistency of: Regular Your liquids should be the consistency of: Regular/Thin Discharge Activity: May Not Drive, May not drive while taking narcotic pain medications., May Shower, May Take a Tub Bath, - - Use cane for ambulation, Do not soak in a Tub Bath Weight Bearing Status: Weight bearing as tolerated Call your doctor if your incision/area has: Sudden Increased Bleeding, Increased Pain/ Swelling, Increased Redness, Foul Smelling Discharge, Swelling at the incision site Call your doctor if you observe: Fever of 101 or Higher, Coldness, Increased Pain, Numbness or Tingling, Change in Color, Inability to urinate, Inability to have a bowel movement, Using more than one pad per hour, Shortness of breath, Dizziness, Fainting spells, Swelling in the ankles, Chest pain, Prolonged hiccoughing, Increased palpitations (irregular heartbeat), Calf discomfort, Uncontrolled pain Suture Line Care: - - Do not pull Steri strips off they will fall off once incision is healed. Allergies/Adverse Reactions: Allergies No Known Allergies Allergy (Unverified 08/26/18 13:05) Medications to take at Discharge Pravastatin Sodium 80 mg PO QHS 08/26/18 Tamsulosin HCl [Flomax] 0.4 mg PO DAILY 08/26/18 Zolpidem Tartrate [Ambien] 10 mg PO QHS 08/26/18 Acetaminophen [Tylenol] 1,000 mg PO Q8 09/06/18 Aspirin E.C. [Ecotrin] 81 mg PO BIDCM 09/06/18 Famotidine [Pepcid] 20 mg PO DAILY 09/06/18 Meloxicam [Mobic] 7.5 mg PO BID 09/06/18 Cyclobenzaprine [Flexeril] 5 mg PO DAILY PRN PRN #30 tablet 09/13/18 Famotidine [Pepcid] 20 mg PO DAILY #60 tablet 09/13/18 fentaNYL patch [Duragesic patch] 25 mcg TRANSDERM. Q72H 6 Days #2 patch 09/13/18 The following prescriptions were given: Cyclobenzaprine [Flexeril] 5 mg PO DAILY PRN PRN #30 tablet PRN Reason: SPASMS Famotidine [Pepcid] 20 mg PO DAILY #60 tablet fentaNYL patch [Duragesic patch] 25 mcg TRANSDERM. Q72H 6 Days #2 patch Primary Care Physician: Lo Sun MD [Primary Care Provider] - Test Results: Test results from this visit will be discussed in further detail at your follow- up appointment, if applicable. Please Follow Up With: Oumar Kohler When: Sunday Please Follow Up With: [facility] - Physical Therapy When: Sunday Please Follow Up With: Dr. Sun When: Sunday Proposed Discharge Date: 09/14/18
[2018-09-13 20:09] VITALS: BP 115/68; PULSE 78; RESP 16; TEMP 36.8; O2SAT 96
[2018-09-13] MEDS: Pravastatin 80 MG Tablet PO (21:37)
[2018-09-13] MEDS: Zolpidem Tartrate 5 MG Tablet 10 MG PO (23:05)
[2018-09-14] MEDS: Acetaminophen 500 MG Tablet 1000 MG PO (06:57)
[2018-09-14 07:37] VITALS: BP 121/60; PULSE 70; RESP 20; TEMP 36.9; O2SAT 95
[2018-09-14] MEDS: Tamsulosin HCl 0.4 MG Capsule PO (08:04)
[2018-09-14] MEDS: Aspirin E.C. 81 MG Tablet PO (08:04)
[2018-09-14] MEDS: Famotidine 20 MG Tablet PO (08:05)
[2018-09-14] MEDS: Senna/Docusate Sodium 1 Tablet 2 TABLET PO (08:05)
[2018-09-14] MEDS: Meloxicam 7.5 MG Tablet PO (08:06)
[2018-09-14 10:45] VITALS: BP 121/60; PULSE 70; RESP 20; TEMP 36.9; O2SAT 95
--- NOTE | 2018-09-14 10:45 | NURSING ---
Patient and verbalized understanding to discharge instructions.
== END 2018-09-14 10:45 | disposition home or self-care (01) | DRG 561 ==
PROVIDERS: Nurse Practitioner Acute Care; Admitting Provider Psychiatry & Neurology Neurology; Family Provider Internal Medicine; PCP Internal Medicine; Referring Provider Psychiatry & Neurology Neurology; Visit Provider Internal Medicine
DX: Z47.1 Aftercare following joint replacement surgery (principal); Z96.641 Presence of right artificial hip joint; E78.5 Hyperlipidemia, unspecified; N40.0 Benign prostatic hyperplasia without lower urinary tract symptoms; D64.9 Anemia, unspecified
CPT/HCPCS: 36415; 80053; 83735; 84100; 85025; 97110; 97116; 97162; 97165; 97530; 97535

== ENCOUNTER → 2019-06-20 | Outpatient (CLI) | payer SELFPAY ==
--- NOTE | 2019-06-20 14:07 | CT_ITS ---
HISTORY: ATHEROSCLEROSIS. over read for calcium scoring EXAMINATION: CT Heart Quantitative coronary calcium W/O contrast TECHNIQUE: Helically acquired images were obtained of the chest. A radiation dose optimization technique was used for this scan. IV Contrast dosage and agent: None. COMPARISON: None FINDINGS: LUNGS, PLEURA AND LARGE AIRWAYS: The visualized lungs are clear. No pleural effusion or thickening. No pneumothorax. HEART AND PERICARDIUM: Heart size is normal. No pericardial effusion. Coronary artery atherosclerosis, please see coronary calcium report dictated separately. VESSELS: Thoracic aorta is not dilated. MEDIASTINUM AND JACINTO: No mediastinal or hilar adenopathy. Esophagus is unremarkable. No hiatal hernia. Calcified right lymph nodes. UPPER ABDOMEN: No acute pathology. BONES: No suspicious lytic or blastic abnormality. CT/Limited Chest CT w/CCTA IMPRESSION: No acute findings. Individualized dose optimization techniques were used for this CT. at 2152 Reported and signed by: Danny Campbell MD Electronically Signed: Danny Campbell, at 21:51 EDT Tel , Service support ,
[2019-06-20 14:17] VITALS: BP 112/65; PULSE 62; RESP 18; O2SAT 98; BMI 24.3
--- NOTE | 2019-06-20 16:07 | CA.SCORE ---
Calcium Scoring Date of Study:: 06/20/19 Coronary Calcium Scoring: High-resolution Computed Tomographic imaging of the chest was performed on [06/20/2019.], with particular attention paid to the coronary arteries. Images from the examination were analyzed for the presence and extent of coronary artery calcification , using coronary calcium quantification software. The patient tolerated the procedure well and there were no complications. The results of the coronary calcification analysis are provided below. - Findings Left Main (LM): 35 Left Anterior Descending (LAD): 385 Left Circumflex (LCX): 559 Right Coronary Artery (RCA): 614 Total Agatston Score: 1,593 Percentile Rankin - Conclusion Calcium Scoring Interpretation: 0 No identifiable atherosclerotic plaque. Very low cardiovascular disease risk. <5% chance of presence coronary artery disease A Negative Examination 1-10 Minimal Plaque burden. Significant coronary artery disease very unlikely. 11-100 Mild plaque burden. Likely mild or minimal coronary atherosclerosis. 101-400 Moderate plaque burden Moderate non-obstructive coronary artery disease highly likely. Over 400 Extensive plaque burden. High likelihood of at least one significant coronary stenosis (>50% diameter) Calcium Score: >400 High likelihood of at least one significant coronary stenosis - The above suggests high likelihood of at least one coronary vessel with greater than 50% stenosis. A full evaluation of cardiac risk should include assessment of all conventional risk factors and the percentile rankings reported herein should be evaluated in the context. This patient appears to have a percentile ranking of over 75%.
== END | disposition home or self-care (01) ==
PROVIDERS: Family Provider Internal Medicine; PCP Internal Medicine; Referring Provider Internal Medicine; Visit Provider Internal Medicine
DX: I70.0 Atherosclerosis of aorta (principal); I65.29 Occlusion and stenosis of unspecified carotid artery
CPT/HCPCS: 75571; 76380

== ENCOUNTER → 2019-08-04 | Outpatient (CLI) | payer MEDICARE, OTHER, SELFPAY ==
[2019-06-20 14:17] VITALS: BMI 24.3
[2019-07-23 15:11] VITALS: BMI 23.6
--- NOTE | 2019-08-04 15:32 | CT_ITS ---
STUDY: CT TEMPORAL BONES WITHOUT CONTRAST - ATTN: I.A.C. S REASON FOR EXAM: Male, 69 years old. Right ear feels like there is something in it. Keratoma. RADIATION DOSAGE (If Supplied By Facility): CTDIvol = ( 67.58 ) mGy, DLP = ( 755.64 ) mGycm TECHNIQUE: The patient was scanned in a multi detector CT scanner. Transaxial imaging was performed without the administration of intravenous contrast material. Sagittal and coronal images were reconstructed. Individualized dose optimization techniques were used for this CT. COMPARISON: None. FINDINGS: RIGHT TEMPORAL BONE Normal right internal auditory canal. Normal visualized ossicles and tympanic cavity. Normal right cochlea and semicircular canals. Normal vestibular aqueduct. Normal right petrous carotid artery. Normal right jugular fossa. Normal right mastoid air cells. Normal right petrous apex. Right external auditory canal: Small cerumen. The tympanic membrane is retracted into the middle ear space with mild thickening on the middle ear side of the tympanic membrane. This is atypical for cholesteatoma. There is no soft tissue mass in Prussak's space and no truncation of the scutum. LEFT TEMPORAL BONE Normal left internal auditory canal. Normal visualized ossicles and tympanic cavity. Normal left cochlea and semicircular canals. Normal vestibular aqueduct. Normal left petrous carotid artery. Normal right jugular fossa. Normal left mastoid air cells. Normal left petrous apex. CT/Orb Sella Post Fossa Ear w/o IMPRESSION: 1. Mild retraction and thickening on the middle ear side of the right tympanic membrane is atypical and doubtful for cholesteatoma. This is in the hypotympanum and away from the intact middle ear ossicles and intact scutum. This should be partially visible on otoscopy. Comparison with prior CT temporal bones will help if available. Otherwise follow-up CT temporal bones in 6 months will help clarify. 2. Small cerumen in the right external auditory canal. 3. Normal right osseous labyrinth and right internal auditory canal. 4. Normal left temporal bone. Electronically Signed: Mariusz Breaux MD at 15:53 EDT , Service support ,
== END | disposition home or self-care (01) ==
LOC: CT 15:30
PROVIDERS: Family Provider Internal Medicine; PCP Internal Medicine; Referring Provider Otolaryngology Otolaryngology/Facial Plastic Surgery; Visit Provider Otolaryngology Otolaryngology/Facial Plastic Surgery
DX: H72.01 Central perforation of tympanic membrane, right ear (principal); H69.81 Other specified disorders of Eustachian tube, right ear; L57.0 Actinic keratosis
CPT/HCPCS: 70480

== ENCOUNTER → 2019-08-15 | Outpatient (CLI) | payer MEDICARE, OTHER, SELFPAY ==
[2019-07-23 15:11] VITALS: BMI 23.6
--- NOTE | 2019-08-15 07:01 | ECHOD_ITS ---
Reason For Study: CAD/ASHD Procedure This was a 2D Doppler, Color Flow transthoracic echocardiogram. Exam performed in department. Left Ventricle Normal LV size. Left ventricular systolic function is normal. The estimated ejection fraction is 55 %. No regional wall motion abnormalities noted. Right Ventricle Normal RV size. Normal systolic function. Atria Normal left atrium. Normal right atrium. Bubble contrast study negative for right to left interatrial shunt. Mitral Valve Normal mitral valve. Tricuspid Valve Normal tricuspid valve. Aortic Valve Normal aortic valve. Pulmonic Valve Normal pulmonic valve. Great Vessels Normal aortic root. The pulmonary artery is normal size. Normal inferior vena cava. Pericardium/Pleural No pericardial effusion. Medication Performed a rapid injection of agitated mix of 9 cc saline and 1cc air to assess for atrial septal defect. MMode/2D Measurements & Calculations LVIDd: 4.5 cm IVSd: 0.94 cm Ao root diam: 3.1 cm LVIDs: 3.0 cm LVPWd: 0.94 cm RVDd: 3.9 cm FS: 33.6 % LAV(MOD-bp): 36.3 ml LVAd ap4: 28.7 cm2 SV(MOD-sp4): 49.2 ml LAV(MOD-bp) Indexed: 18.9 ml/m2 EDV(MOD-sp4): 81.5 ml LAV(MOD-sp2): 48.5 ml EDV(sp4-el): 81.7 ml LAV(MOD-sp4): 26.5 ml LVAs ap4: 17.0 cm2 ESV(MOD-sp4): 32.3 ml ESV(sp4-el): 32.6 ml EF(MOD-sp4): 60.3 % EF(sp4-el): 60.1 % SV(sp4-el): 49.1 ml LA A4 area: 12.8 cm2 LA dimension(2D): 3.2 cm RA A4 area: 12.4 cm2 Time Measurements MV dec time: 0.23 sec Doppler Measurements & Calculations MV E max tristian: 72.1 cm/sec Lat Peak E' Tristian: 11.6 cm/sec Med Peak E' Tristian: 9.9 cm/sec MV A max tristian: 78.6 cm/sec E/E' lat: 6.2 E/E' med: 7.3 MV E/A: 0.92 Ao V2 max: 155.8 cm/sec LV V1 max: 150.9 cm/sec PA V2 max: 155.3 cm/sec Ao max P.7 mmHg LV V1 max P.1 mmHg Interpretation Summary Normal LV size. Left ventricular systolic function is normal. The estimated ejection fraction is 55 %. Bubble contrast study negative for right to left interatrial shunt. Structurally normal valves. Ordering Physician: Jasbir Braxton Referring Physician: CAM WILDE Performed By: Isis Manzo, SEA
--- NOTE | 2019-08-15 14:40 | STRESSREP_ITS ---
Stress Test Report Exercise myocardial perfusion stress test. 69-year-old man with a history of coronary artery disease. Medications: Flomax, Toprol, Altace, rosuvastatin. Stress protocol: Resting EKG demonstrates sinus bradycardia with a rate of 58 bpm normal intervals are noted resting blood pressure 180/70 mmHg. The patient exercised according to regular Juarez protocol for total duration of 9 minutes and 30 seconds. The maximum heart rate attained was 142 bpm was 94% of maximum predicted heart rate the maximum workload was 10.9 metabolic equivalents. The patient maintained sinus rhythm throughout the recording. At rest there were no ST or T wave changes noted suggest ischemia peak exercise upsloping ST changes were noted with no meet the criteria for ischemia. The resting blood pressure was 108/70 with a peak blood pressure 168/58 mmHg rate pressure product was 23,000. No clinical angina was noted the test was terminated due to leg f atigue. Myocardial perfusion protocol. 11.4 mCi of technetium 99m sestamibi was injected at rest. The patient exercised according to regular Juarez protocol for 9 minutes and 30 seconds. At peak exercise 32.9 mCi of technetium 99m sestamibi was injected stress images were obtained stress and rest images were reconstructed in comparing the short axis vertical and horizontal long axis. Gated images were also obtained Perfusion SPECT analysis: Review of the stress images demonstrate normal uptake of tracer noted in all areas of myocardium the resting images similar demonstrate normal uptake of tracer noted in all rest myocardium. No areas of reversibility or no suggest ischemia no previous infarct is noted. Gated SPECT analysis: The gated ejection fraction is noted to be 73%. Conclusion: Normal exercise myocardial perfusion stress test at a high workload. Excellent functional capacity. No clinical angina noted. No significant arrhythmias noted.
--- NOTE | 2019-08-18 15:04 | STRESSREP_ITS ---
Stress Test Report Addendum and correction to the stress report of 08/15/2019. No clinical angina was noted and the test was terminated due to attainment of ta rget heart rate.
== END | disposition home or self-care (01) ==
LOC: CVS 07:00
PROVIDERS: Family Provider Internal Medicine; PCP Internal Medicine; Referring Provider Internal Medicine Cardiovascular Disease; Visit Provider Internal Medicine Cardiovascular Disease
DX: I25.10 Atherosclerotic heart disease of native coronary artery without angina pectoris (principal); R93.1 Abnormal findings on diagnostic imaging of heart and coronary circulation; I10 Essential (primary) hypertension
CPT/HCPCS: 78452; 93017; 93306; A9500; A4216

== ENCOUNTER → 2021-03-14 06:37 | Outpatient (CLI) | payer MEDICARE, OTHER, SELFPAY ==
[2020-09-02 14:33] VITALS: BMI 23.5
--- NOTE | 2021-03-16 14:31 | STRESSREP_ITS ---
Stress Test Report Date: 03/14/2021 Procedure: Exercise tolerance test/imaging study Indications: Chest pain Consent: Per the patient Procedure: The patient exercised on a Juarez protocol for 9 minutes achieving a peak heart rate of 153 bpm (103% predicted maximal heart rate) with a peak blood pressure 170/74 mmHg and a peak MET capacity of 10.1 METs. The baseline ECG demonstrated normal sinus rhythm. The peak exercise ECG demonstrated no significant ischemic changes. EKG during recovery revealed no significant ischemic changes [There were no cardiac dysrhythmias pretest, during exercise, or recovery]. The functional capacity was considered excellent for age. There was [no complaint of chest discomfort during exercise or recovery]. The examination was discontinued secondary to achieving target heart rate. Impression: 1. Technically adequate (percent predicted maximal heart rate greater than 85%) exercise tolerance test 2. Stress test is negative for exercise-induced EKG changes of ischemia 3. The test test is negative for exercise-induced chest pain 4. Functional capacity is excellent for age 5. Nuclear images pending Myocardial perfusion imaging study: Technique: The patient was injected with 9.6 mCi of technetium 99m Cardiolite and subsequently rest SPECT Cardiolite nuclear imaging was obtained in the horizontal long, vertical long, and short axis views. The patient exercised on a Juarez protocol. Please see above for details. The patient was injected with 33.1 mCi of technetium 99m Cardiolite and subsequently stress SPECT Cardiolite nuclear imaging was obtained in the horizontal long, vertical long, and short axis views. A gated Cardiolite study at peak stress was obtained. Interpretation: Rest and stress SPECT Cardiolite nuclear imaging status post realignment, normalization, and attenuation correction, demonstrates mildly decreased radioisotope uptake in the inferior wall prior to attenuation correction on both the rest and stress images. After attenuation correction there is normal myocardial radioisotope uptake. These findings assessed of diaphragmatic attenuation artifact. There is no evidence of significant ischemia or infarction. The gated Cardiolite study demonstrates no significant regional wall motion abnormalities. The reported LVEF is greater than 70%. Impression: 1. There is no evidence of significant ischemia or infarction. 2. The gated Cardiolite study reports an LVEF of greater than 70%. This note was generated with [employer] software. It may contain incorrect words, spelling, and punctuation that were not noted in checking the note before signing.
== END ==
PROVIDERS: PCP Internal Medicine; Referring Provider Internal Medicine; Visit Provider Internal Medicine
DX: R07.89 Other chest pain (principal)
CPT/HCPCS: 78452; 93017; A9500; A4216

== ENCOUNTER → 2021-07-18 13:48 | Outpatient (CLI) | payer MEDICARE, OTHER, SELFPAY ==
[2021-07-05 15:40] VITALS: BMI 23.5
--- NOTE | 2021-07-18 13:49 | CDU_ITS ---
Reason For Study: CAROTID BRUIT Rt. Velocities/BP Lt. Velocities/BP Prox CCA 80.3/20.3 cm/sec. Prox CCA 108.8/20.4 cm/sec. Mid CCA 106.4/21.6 cm/sec. Mid CCA 110.0/21.6 cm/sec. Dist CCA 86.9/21.6 cm/sec. Dist CCA 99.0/22.8 cm/sec. Prox ICA 82.9/24.3 cm/sec. Prox ICA 67.8/18.7 cm/sec. Mid ICA 93.4/26.9 cm/sec. Mid ICA 78.5/28.1 cm/sec. Dist ICA 93.4/28.2 cm/sec. Dist ICA 79.7/29.3 cm/sec. Rt. ICA/CCA = 93.4/106.4=0.9. Lt. ICA/CCA = 79.7/110.0=0.7. Prox ECA 110.3/9.9 cm/sec. Prox ECA 100.2/15.5 cm/sec. Rt. Vert. 44.3/15.0 cm/sec. Lt. Vert. 71.1/23.2 cm/sec. Right Extracranial There is homogeneous, smooth atherosclerotic plaque noted in the right common carotid artery. There is heterogeneous, irregular atherosclerotic plaque noted in the right internal carotid artery. There is heterogeneous, irregular atherosclerotic plaque noted in the right external carotid artery. Antegrade flow is noted in the right vertebral artery. Left Extracranial There is homogeneous, smooth atherosclerotic plaque noted in the left common carotid artery. There is heterogeneous, irregular atherosclerotic plaque noted in the left internal carotid artery. There is intimal thickening but no significant atherosclerotic plaque noted in the left external carotid artery. Antegrade flow is noted in the left vertebral artery. There is heterogeneous, irregular atherosclerotic plaque noted in the left bulb. Procedure Carotid Duplex 20300. Exam performed in department. VL/Carotid Duplex Ultrasound Interpretation Summary Irregular calcific plaque in the proximal right internal carotid artery with le ss than 50% stenosis Less than 50% stenosis right external carotid artery Minimal calcific plaque with shadowing of the proximal left internal carotid ar mildred with less than 50% stenosis Less than 50% stenosis left external carotid artery Patent antegrade vertebral arteries bilaterally Ordering Physician: Layne Landa Referring Physician: Lo Sun Performed By: Amaya Villafana RDCS, RVT
== END ==
PROVIDERS: PCP Internal Medicine; Referring Provider Physician Assistant Medical; Visit Provider Physician Assistant Medical
DX: R09.89 Other specified symptoms and signs involving the circulatory and respiratory systems (principal)
CPT/HCPCS: 93880

== ENCOUNTER 2022-06-28 07:20 | Observation (INO) | payer MEDICARE, OTHER, SELFPAY ==
--- NOTE | 2022-06-13 14:13 | HP.PCM_ITS ---
History and Physical History and Physical [facility] Patient Name: Dilip Orozco : 1950 From:? CHARLINE GREEN PA-C? DATE OF SURGERY:? 06/28/2022 SCHEDULED PROCEDURE:? ?left total hip arthroplasty HISTORY OF PRESENT ILLNESS: Preoperative history and physical exam was performed on June 13, 2022.? This is a 72-year-old male who is been having ongoing pain in his left hip for several years.? Pain has been constant.? Pain is increased with going up and down stairs, driving, sitting, and walking.? He has difficulty with activities of daily living including bathing/showering, getting dressed and putting on his socks and shoes, shopping.? He also has difficulty with mowing his lawn.? He feels unsafe walking and mowing his lawn due to the pain.? Patient has been taking oral medication including tramadol.? He has been getting this from primary care physician.? States this is only very minimally effective.? He has tried rest, ice, heat, elevation with no relief.? Patient has tried 3 previous intra-articular corticosteroid injections with the last one given him minimal relief.? Last injection was on March 16, 2022.? He denies previous surgery on left hip.? He does have previous history of a right direct anterior total hip arthroplasty by Dr. Roge Mcmahan on September 04, 2018.? He is doing well from that procedure.? Currently denies any chest pain, shortness of breath, fevers chills or recent infections.? After failing conservative measures and discussing treatment options with Dr. Roge Mcmahan, the patient does wish to proceed with a left total hip arthroplasty.? We are obtaining surgical clearance from the primary care physician Dr. Sun.? Patient has medical history pertinent for hypertension, benign prostatic hyperplasia in which she does see a local urologist, coronary artery disease, and childhood polio. REVIEW OF SYSTEMS: Review Of Systems: Constitutional: Denies change in appetite, fever and weight change. Cardiovasular: Denies chest pain, heart murmur, irregular heartbeat and peripheral vascular disease. Respiratory: Denies asthma, cough, pneumonia, sleep apnea, shortness of breath, tuberculosis and wheezing. Gastrointestinal: Denies constipation, diarrhea, heartburn, nausea, rectal itching, bloody stools and vomiting. Genitourinary: Denies incontinence. Musculoskeletal: Denies leg swelling, pain, trouble walking and weakness. Skin: Denies Raynaud's, history of shingles and tattoo. Neurological: Denies ambulatory dysfunction, dizziness, numbness/tingling and tremor. Psychiatric: Reports insomnia, but denies anxiety, depression, mental illness and stress. Hematologic/Lymphatic: Denies anemia, bleeding/bruising tendency and past transfusion. Reviewed, no changes. PAST MEDICAL HISTORY: Advance Care Plan: No Advance Directives Effective Date: 08/19/2018 Past Medical History: Medical Problems: High Blood Pressure, Childhood Polio, Coronary Artery Disease (CAD), Benign Prostatic Hyperplasia Accidents: None Surgical Hx: Hemorroidectomy & Fissurectomy - (03/2008) [facility] Hip Replacement RT - (09/04/2018) [facility] Yazan Catract - (07/2020) Sphenoidotomy - 05/18/2021 Tympanoplasty - 05/18/2021 LT Hip Fluoroscopic-Guided Intraarticular Injection - (03/16/2022) [facility] Anesthesia Complications: None Assistive Devices: Dentures - PARTIAL, Hearing Aid Reviewed and updated. SOCIAL HISTORY: Social History: Marital: .Occupation: Retired.Work Status: Retired.Hand Dominance: Right- Handed. Personal Habits:? Cigarette Use: Never.Smokeless Tobacco: Never Used Smokeless Tobacco.E-Cigarette Use: Never used.Alcohol: Denies use.Drug Use: Denies Use.Enjoy Exercising: Exercises 1-3 X/Week. Reviewed, no changes. VITALS: Ht: 70 Wt: 166lb Wt k.298 BMI: 23.8 BP: 132/86 Pulse: 79 Resp: 16 T: 97.8 T: 36.6C Pain Level: 9 O2SatR: 99 ALLERGIES: No Known Drug Allergy? MEDICATIONS: Tamsulosin HCL 0.4 mg 2 by mouth every day, Ramipril 5 mg take 1 capsule by mouth every day, Rosuvastatin Calcium 40 mg 1 by mouth every day, Trintellix 10 mg 1po qday, Multi Vitamin? take one(1) tablet daily., Vitamin D (Cholecalciferol) 25 mcg (1000 Ut) 1po qday, Ocuvite Eye Health Formula? 1 by mouth every day, Coq-10 100 mg 1 by mouth every day, Tramadol HCL 50 mg 1-2 by mouth every 6 hours as needed pain, Tylenol 8 Hour Arthritis Pain 650 mg 2 by mouth every 8 hours as needed pain, Zolpidem Tartrate 10 mg take one tablet by mouth at bedtime as needed PRE-OP EXAM:? General appearance:NORMAL? ? ? Other: Eyes: Conjunctivae and lids: NORMAL? Pupils: ERR Ears, Nose, Mouth, and Throat: NORMAL? Other: Inspection of lips, teeth and gums: NORMAL? ?Other: Neck: Examination of neck: no masses noted. Respiratory: Assessment of respiratory effort: NORMAL? ?Other: ?Auscultation of lungs: clear to auscultation no wheezes, rhonchi or rales. Cardiovascular:? Auscultation of heart: regular rate and rhythm, no murmurs, gallops or rubs. PHYSICAL EXAMINATION: Patient does walk with an antalgic gait.? Left hip is cool to touch without erythema or signs of infection.? He does complain of left groin pain with range of motion.? Range of motion left hip 15 internal rotation 25 external rotation hip flexion 100 flexion with pain.? Sensation intact to light touch. IMAGING STUDIES: Previous x-ray of the left hip reveals joint space narrowing, subchondral sclerosis, osteophyte formation consistent with moderate stage III osteoarthritis with pistol manager college deformity of the proximal femur and progressive joint space narrowing compared to previous x-rays. IMPRESSION: 1.? Left hip osteoarthritis 2.? Presence of right total hip arthroplasty 2017 3.? Hypertension 4.? Coronary artery disease 5.? Benign prostatic hyperplasia 6.? History of childhood polio PLAN: Dr. Roge Mcmahan did discuss and review with the patient all treatment options including surgical versus nonsurgical options.? Patient does wish to proceed with the above-stated procedure.? Potential risks, benefits, and complications of the procedure were discussed in detail including but not limited to , infection, nerve and blood vessel damage, persistent pain, numbness, tingling, paresthesias, blood clot, pulmonary embolism, and requirement for possible further surgery.? The patient expressed full understanding and has no further questions for the doctor.? Patient does agree to proceed with the above-stated procedure and has signed the surgery consent form. We discussed the current risks associated with COVID 19.? This does include the risk of exposure while in the hospital.? Patient was reassured local hospitals have low infection rates and are taking all necessary precautions to avoid exposure to patients.? In addition, we discussed strategies that can be used to help limit exposure including those that limit the patient's time in the hospital.? Also using strategies to limit the patient's need for continued inpatient services after being discharged from the hospital.? Patient was notified that we will need to comply with any screening or testing the hospital wishes to perform or that surgery may be delayed for any positive results. This dictation was created using voice recognition software. Phonetic and/or grammatical errors may exist. ___? I have re-examined the patient.? There are no clinical changes since date of exam. ___? See progress notes for changes. ___? Dictated on admission Date: ? ? ?Time: Signature:
[2022-06-15 15:50] LABS: Magnesium 2.3 mg/dL (1.6-2.6)
[2022-06-28] VITALS (13 sets, daily range): BP systolic 103–138; BP diastolic 50–87; PULSE 78–89; RESP 15–18; TEMP 36.5–36.8; O2SAT 92–100; BMI 24.0; BMI 25.3; BMI 25.4
--- NOTE | 2022-06-28 | HIP_PTH ---
PATIENT: EVELYN MEDINA LOC: [facility] U#:[id number] AGE/SX: 72/M ROOM: TX319 RE06/28/[address]: Dr. Roge Mcmahan MD : 1950 BED: 1 DIS: 06/29/2022 SPEC #: [id number] RECD: 06/28/22 12:09 STATUS: JOSE ANGEL REJosemanuel #: [id number] KELLY: 06/28/22 00:[address]: Roge Mcmahan DEPT: SURGICAL PATHOLOGY RECD BY: Osorio Moise ENTERED: 06/28/22 12:10 SP TYPE: TOTAL HIP OTHR DR: Dr. Lo Sun MD Tissues: Hip, NOS Procedures: Decalcification bone/plaque Surgery Specimen Level IV HEADER OPERATION: ERAS, total hip anterior approach PRE-OP DIAGNOSIS: Left hip osteoarthritis TISSUE SUBMITTED: Bone and soft tissue of left hip MICROSCOPIC DIAGNOSIS Left hip bone and soft tissue, total hip replacement/resection: Femoral head with degenerative osteoarthritic changes. Fragments of fibroadipose tissue and reactive synovial tissue. JOHN:reny 07/03/2022 MICROSCOPIC DESCRIPTION Slides are reviewed. GROSS DESCRIPTION Received is one container labeled with the patient's name and designated bone and soft tissue left hip. The specimen consists of a reyes femoral head measuring 4.5 x 5 x 5 cm. The articular surface displays prominent osteophyte formation and bone erosion. A detached piece of bone is also present consistent with femoral neck measuring 4 x 3 x 1.5 cm. The soft tissue measures in aggregate 9 x 7 x 2.5 cm. Cement Sprayer Helper sections are submitted in two cassettes as follows: 1 - soft tissue, 2 - bone after decalcification. / JOHN:reny 06/28/2022 TC:5 [facility]: [id number]
[2022-06-28] MEDS: Lactated Ringers 1,000 ML 999 ML IV ×2 (07:15→12:31)
--- NOTE | 2022-06-28 07:19 | OP.PCM_ITS ---
Report of Operation Date of Procedure: 06/28/22 Pre-Operative Diagnosis: Left hip primary osteoarthritis Post-Operative Diagnosis: Left hip primary osteoarthritis Surgery/Procedure Performed:: Left minimally invasive direct anterior hip replacement Description of Surgical Findings:: Stable hip with equal leg lengths Surgeon: Roge Mcmahan boat carpenter mechanic: Oumar Kohler Type of Anesthesia: General Anesthesiologist: Zoltan Davidson Special Medications: 2 g Ancef, 1 g TXA at incision, 1 g TXA closure, 10 mg Deca dron, joint cocktail (5 mg Duramorph, 30 mL of 0.5% Ropivicaine, 1000 units of epinephrine, 30 mg of Toradol) Specimen's removed: Bony cuts Estimated Blood Loss (mL): 200 Fluids Replaced: 1000 Description of Procedure: Components used: 1. Insignia high offset Sedan femoral stem size 9 2. Rajiv trident 2 acetabular shell size 58 mm 3. Rjaiv X3 polyethylene f 4. Rajiv Biolox delta 36mm, -5mm femoral head Brief history operative indications: 72 yo m who failed conservative measures for their hip osteoarthritis. X-rays were consistent with osteoarthritis including joint space narrowing, osteophyte formation and subchondral cysts. Total hip replacement was discussed with the patient with risks and benefits including but not limited to blood loss, DVTs, PEs, neurovascular damage, dislocation, general risks of anesthesia including loss of life. Patient demonstrated an understanding medical clearance is obtained the patient was consented for surgery. Procedure: On the date of procedure the patient's L hip was marked in the preoperative area. Patient was then taken back to the operating room where anesthesia assumed control of the C-spine and airway and administered anesthetic. Patient was transferred to the operating table and placed in the supine position. The hips were placed at the break of the bed and a sacral bump was placed. L The lower extremity was then prepped out in a sterile fashion using chlorhexidine while the surgeon scrubbed. The PA was vital in the positioning of the patient. Upon reentering the room the left lower extremity was draped in the standard orthopedic fashion and the incision was marked. A timeout was called and everyone agreed upon the side, the site, the procedure be performed, antibody given, and patient's identity. At this time incision was made through skin, subcutaneous tissue, and fat down to fascia. The fascia was then incised and the TFL was retracted laterally. A retractor was placed on the lateral border of the femoral neck. Attention was directed to the inferior portion of the approach and all crossing vessels were identified and appropriately coagulated. A retractor was then placed on the medial portion of the femoral neck. The anterior capsule was then cleared of all soft tissue and then H shaped capsulotomy was made. The retractors were then placed inside the capsule. The femoral neck was identified and a cleanup cut was made. At this time a power corkscrew was used to remove the femoral head. Attention was then turned toward the acetabulum where the soft tissues were appropriately retracted and the acetabulum was sequentially reamed to 58 mm. A 58 mm cup was then selected and impacted into place. Acetabular liner was impacted into place and locking mechanism was verified. The position of the acetabular cup was then verified under live fluoroscopy. Attention was then turned to the femur. Soft tissue releases on the medial and lateral femoral neck were appropriately done, the leg was externally rotated and lateralized. A Johnson retractor was placed medially and proximally to the greater trochanter this allowed appropriate visualization and exposure of the femoral canal. Rongeour was then used to remove excess lateral bone. A canal finder and entry broach were used to open the proximal canal. Once we verified we were down the femoral canal we subsequently broached up to a size 9 femur. The appropriate neck was placed in the previously selected head was trialed with a -5 mm neck. Traction was pulled and the hip was reduced with internal rotation. Once it was appropriately reduced and stability was checked. There was minimal shuck, equal leg lengths and appropriate stability with hyperextension and external rotation as well as with 90? flexion and internal rotation. Fluoroscopy was then also used to verify the position of the components and leg lengths using the contralateral side for comparison. The trial components were then dislocated the proximal femur was again exposed and the components were removed from the wound. The final components were verified and opened. The wound was copiously irrigated out with normal saline. The acetabulum was checked for any residual debris. The final components were placed and impacted. Traction and internal rotation were again used to reduce the hip. After adequate reduction the hip remained stable with appropriate leg lengths. The final components were once again checked with live fluoroscopy and were found to be satisfactory. The wound was then copiously irrigated with normal saline once more, and hemostasis was obtained. Closure was then done using #1 Vicryl runner to close the fascia. A 2-0 vicryl interuppted sutures were used to close the subcutaneous skin. A 3-0 Monocryl and Steri-Strips were used for final skin closure. A Silverlon dressing was placed. Patient was awakened by anesthesia and transferred to the [facility]. Patient was then transferred to the PACU for recovery. During the course of the procedure the physician organic section technical lead (PE) played a vital role. Their intimate knowledge of my steps in the procedure aided in safe and expedient completion of the procedure. The PE played a vital rolls in positioning particularly in obtaining the appropriate positioning of the sacral bump. The PE was also vital in the retraction of soft tissues during the exposure and especially the femoral work as this is a vital part of the procedure to prevent complications and fractures. The PE was also vital and protecting soft tissues during times of bony cuts and reaming. He also played a vital role in closure with my direct supervision. The PE was also important d uring reduction and dislocation of the joint and trials intraoperatively. Postoperative plan: Patient will get 24 hours postop antibiotics. Patient will get in-house physical therapy and will be weight-bear as tolerated. Patient will follow up in office in 2 weeks for a wound check and x-rays. Aspirin 81 mg twice daily. Complications No intraoperative complications Admit VTE Documentation VTE Present on Admission: No VTE Mechan Device Prophylaxis: SCD's and Thigh High JIMMY Hose VTE Pharm Prophylaxis ordered?: Yes
[2022-06-28] MEDS: Celecoxib 200 MG Capsule 400 MG PO (07:34)
[2022-06-28] MEDS: Gabapentin 600 MG Tablet PO (07:34)
[2022-06-28] MEDS: Acetaminophen 500 MG Tablet 1000 MG PO ×3 (07:40→20:42)
[2022-06-28 08:00] LABS: Bedside Glucose 125 mg/dL (74-106)
[2022-06-28] MEDS: dexAMETHasone 10 MG/ML Vial IV (09:40)
[2022-06-28] MEDS: Cefazolin 2 GM in 0.9% Normal Saline 100 ML IV (09:40)
[2022-06-28] MEDS: TXA 1000mg in NS100 100ml (IVPB at Incision) 660 MG IV (09:50)
[2022-06-28] MEDS: Lactated Ringers 1,000 ML 125 ML IV (10:00)
--- NOTE | 2022-06-28 10:20 | RAD_ITS ---
INDICATION: PAIN EXAMINATION/TECHNIQUE: X-RAY - LEFT XR Hip Unilateral with Pelvis when performed; 1 View 5 VIEWS COMPARISON: 08/03/2016. FINDINGS: 4 spot fluoroscopic images of the left hip joint were obtained intraoperatively demonstrating unremarkable alignment of the left hip prosthesis, no evidence of lucency surrounding the prosthesis. No evidence of cortical irregularity or lucency to suggest a fracture. No evidence of lytic or sclerotic bone lesion is seen. Unremarkable right hip prosthesis. RAD/Hip 1 view with Pelvis IMPRESSION: Unremarkable left hip prosthesis. Electronically Signed: Gunner Baron MD at 11:12 EDT ,
[2022-06-28] MEDS: Lactated Ringers 1,000 ML 75 ML IV (10:31)
[2022-06-28] MEDS: TXA 1000mg in NS100 100ml (IVPB at Closure) 660 MG IV (10:38)
--- NOTE | 2022-06-28 11:30 | RAD_ITS ---
INDICATION: Post Op -- AP both hips on single juan/lateral of op hip PACU EXAMINATION/TECHNIQUE: X-RAY - LEFT XR Hip Unilateral with Pelvis when performed; 2-3 Views 2 VIEWS COMPARISON: Intraoperative x-rays obtained same day.. FINDINGS: SOFT TISSUES: Soft tissue swelling visualized along the lateral aspect of the left hip joint consistent with postoperative changes. No abnormal density in the soft tissues. BONES/JOINTS: Unremarkable alignment of the left hip prosthesis, no evidence of lucency surrounding the prosthesis. No evidence of cortical irregularity or lucency to suggest a fracture, no evidence of lytic or sclerotic bone lesion is seen. Unremarkable right hip prosthesis. RAD/Hip Min 2 Views (Portable) IMPRESSION: Postoperative changes, unremarkable alignment of the left hip prosthesis. Electronically Signed: Gunner Baron MD at 12:09 EDT ,
[2022-06-28 13:25] LABS: Bedside Glucose 156 mg/dL (74-106)
[2022-06-28] MEDS: Morphine 4 MG/ML Syringe IV (14:05)
--- NOTE | 2022-06-28 15:49 | PCM.PN.HOSP ---
Subjective Subjective Feeling groggy post-op. Pain controlled. Objective Data Objective Data Vital Signs: Vital Signs Temp Pulse Resp BP Pulse Ox O2 Del Method O2 Flow Rate 36.8 C 83 18 117/64 93 Room Air 4 06/28/22 13:32 06/28/22 13:32 06/28/22 13:32 06/28/22 13:32 06/28/22 13:32 06/28/22 13:32 06/28/22 13:00 Oxygen Flow Rate (L/min) 4 Oxygen Delivery Method Room Air Weight: 80.2 kg Body Mass Index (BMI) 25.3 Intake & Output: Intake and Output for Last 24 Hours 06/26/22 06/27/22 06/28/22 23:59 23:59 23:59 Intake Total 2597 / 2597 Balance 2597 / 2597 Lab / Micro Data Labs: Laboratory Results - last 24 hr 06/28/22 07:29: POC Glucose 125 H 06/28/22 13:04: POC Glucose 156 H Micro: Microbiology 06/15/22 14:24 Interface Orders Nasal Screen MRSA/MSSA - Final Radiography Diagnostic Testing: Radiology Impression Hip/Pelvis X-Ray 06/28/22 10:20 IMPRESSION: Unremarkable left hip prosthesis. Electronically Signed: Gunner Baron MD at 11:12 EDT , Hip X-Ray 06/28/22 11:30 IMPRESSION: Postoperative changes, unremarkable alignment of the left hip prosthesis. Electronically Signed: Gunner Baron MD at 12:09 EDT , Physical Exam Const alert and no apparent distress Resp normal respiratory effort, no retractions, no use of accessory muscles and clear to auscultation bilaterally Cardio regular rate, regular rhythm, S1 normal heart sound and S2 normal heart sound GI normal to inspection, nondistended, normoactive bowel sounds, soft to palpation, non-tender and non-distended Extremity Extremity Narrative: incision on left leg banadaged--did not remove Assessment & Plan Assessment/Plan (1) Essential (primary) hypertension: PLAN: Plan 1. HTN stable continue ramipril 2. HLP stable continue statin 3. BPH continue tamsulosin higher risk for urinary retention post op and with narcotics 4. S/P L hip replacement mgmt per orthopaedics 5. VTE prophylaxis: per ortho: BID ASA Thank you for the consult. The hospital service will follow. Charges/Coding Visit Charges Inpatient E&M: 08077 Subs Hosp L2
[2022-06-28] MEDS: Aspirin 81 MG TAB.CHEW PO (17:32)
[2022-06-28] MEDS: Tamsulosin HCl 0.4 MG Capsule 0.8 MG PO (17:32)
[2022-06-28] MEDS: Cefazolin 1 GM/50 ML BAG IV (17:38)
[2022-06-28] MEDS: Ensure Surgery 237 ML LIQUID PO (17:38)
[2022-06-28] MEDS: Atorvastatin Calcium 80 MG Tablet PO (20:40)
[2022-06-28] MEDS: Senna/Docusate Sodium 1 Tablet 2 TABLET PO (20:41)
[2022-06-29] MEDS: Zolpidem Tartrate 5 MG Tablet PO (00:06)
[2022-06-29] MEDS: oxyCODONE 5 MG Tablet PO ×2 (00:07→04:24)
[2022-06-29 01:32] VITALS: BMI 25.4
[2022-06-29 02:30] VITALS: BP 150/72; PULSE 75; RESP 14; TEMP 36.9; O2SAT 98
[2022-06-29] MEDS: Cefazolin 1 GM/50 ML BAG IV (03:01)
[2022-06-29 05:18] VITALS: BMI 25.4
[2022-06-29 06:31] LABS: Hematocrit 37.6 % (40-54); Hemoglobin 12.8 g/dL (13.0-16.5); Mean Corpuscular Hgb 31.8 pg (27.0-32.0); Mean Corpuscular Volume 93.5 fL (80-94); Mean Platelet Vol. 9.3 fl (6.2-12.0); Platelet Count 275 K/mm3 (150-450); RBC Distribution Width CV 13.4 % (11.6-14.6); Red Blood Count 4.02 M/mm3 (4.6-6.2); White Blood Count 13.3 K/mm3 (4.4-11.0)
[2022-06-29 06:35] LABS: Anion Gap 5 (5-15); BUN 18 mg/dL (7-18); BUN/Creat Ratio 20.5 RATIO (10-20); Calcium,Total 8.9 mg/dL (8.5-10.1); Chloride 107 mmol/L (98-107); Creatinine, Serum 0.88 mg/dL (0.70-1.30); EST Glomerular Filtration Rate 90 mL/min (>60); Est Glom Filt Rate - Afr Amer 109 mL/min (>60); Estimated Creatinine Clearance 77.19 ml/min; Glucose 121 mg/dL (74-106); Potassium 4.1 mmol/L (3.5-5.1); Sodium Level 139 mmol/L (136-145)
[2022-06-29] MEDS: Acetaminophen 500 MG Tablet 1000 MG PO (06:48)
--- NOTE | 2022-06-29 07:20 | PN.HOSP_ITS ---
Objective Data Objective Data Vital Signs: Vital Signs Temp Pulse Resp BP Pulse Ox O2 Del Method O2 Flow Rate 36.9 C 75 14 150/72 H 98 Room Air 4 06/29/22 02:30 06/29/22 02:30 06/29/22 02:30 06/29/22 02:30 06/29/22 02:30 06/29/22 02:30 06/28/22 13:00 Oxygen Flow Rate (L/min) 4 Oxygen Delivery Method Room Air Weight: 80.2 kg Body Mass Index (BMI) 25.3 Intake & Output: Intake and Output for Last 24 Hours 06/27/22 06/28/22 06/29/22 23:59 23:59 23:59 Intake Total 5237 / 6237 1650 / 0 Output Total 2049 Balance 5237 / 5037 -400 / -400 Lab / Micro Data Result Diagrams: 06/29/22 05:35 06/29/22 05:35 Labs: Laboratory Results - last 24 hr 06/28/22 07:29: POC Glucose 125 H 06/28/22 13:04: POC Glucose 156 H 06/29/22 05:35: WBC 13.3 H, RBC 4.02 L, Hgb 12.8 L, Hct 37.6 L, MCV 93.5, MCH 31.8, MCHC 34.0, RDW Std Deviation 46.0 H, RDW Coeff of Bonilla 13.4, Plt Count 275, MPV 9.3 06/29/22 05:35: Sodium 139, Potassium 4.1, Chloride 107, Carbon Dioxide 27.0, Anion Gap 5, BUN 18, Creatinine 0.88, Estim Creat Clear Calc 77.19, Est GFR (MDR D) Af Amer 109, Est GFR (MDRD) Non-Af 90, BUN/Creatinine Ratio 20.5 H, Glucose 121 H, Calcium 8.9 Micro: Microbiology 06/15/22 14:24 Interface Orders Nasal Screen MRSA/MSSA - Final Radiography Diagnostic Testing: Radiology Impression Hip/Pelvis X-Ray 06/28/22 10:20 IMPRESSION: Unremarkable left hip prosthesis. Electronically Signed: Gunner Baron MD at 11:12 EDT , Hip X-Ray 06/28/22 11:30 IMPRESSION: Postoperative changes, unremarkable alignment of the left hip prosthesis. Electronically Signed: Gunner Baron MD at 12:09 EDT , Assessment & Plan Assessment/Plan (1) Essential (primary) hypertension: PLAN: Plan 1. HTN stable continue ramipril 2. HLP stable continue statin 3. BPH continue tamsulosin higher risk for urinary retention post op and with narcotics 4. S/P L hip replacement mgmt per orthopaedics 5. VTE prophylaxis: per ortho: BID ASA Thank you for the consult. The hospitalist service will follow.
[2022-06-29 08:30] VITALS: BP 139/72; PULSE 90; RESP 16; TEMP 36.7; O2SAT 97
[2022-06-29] MEDS: Ramipril 5 MG Capsule PO (08:46)
[2022-06-29] MEDS: Multivitamins,Therapeutic Tablet 1 TABLET PO (08:46)
[2022-06-29] MEDS: Senna/Docusate Sodium 1 Tablet 2 TABLET PO (08:46)
[2022-06-29] MEDS: Cholecalciferol (VIT D3) 25 MCG TABLET (1,000 UNITS) 50 MCG PO (08:46)
[2022-06-29] MEDS: Aspirin 81 MG TAB.CHEW PO (08:46)
[2022-06-29] MEDS: Psyllium 1 PACKET PO (08:47)
[2022-06-29] MEDS: Ensure Surgery 237 ML LIQUID PO ×2 (08:51→13:44)
[2022-06-29] MEDS: VORTIOXETINE HYDROBROMIDE 10 MG TABLET PO (09:13)
[2022-06-29 09:32] VITALS: BMI 25.4
--- NOTE | 2022-06-29 11:03 | PN.ORTHO_ITS ---
Subjective Subjective The patient was sitting in bedside chair upon examination. Patient denies any chest pain, shortness of breath, dizziness, lightheadedness, nausea or vomiting, or calf pain. Pain is controlled on medications. No adverse overnight events. Patient overall is doing very well. He has walked over 300 feet with therapy. Pain is very well controlled. Patient initially wanted to try to go somewhere for rehab. I do not feel medically he is a candidate for this. Patient is doing very well postoperatively and we discussed going home with outpatient physical therapy. After discussion he was in agreements with plan. Objective Data Objective Data Vital Signs: Vital Signs Temp Pulse Resp BP Pulse Ox O2 Del Method O2 Flow Rate 98.0 F 90 16 139/72 H 97 Room Air 4 06/29/22 08:30 06/29/22 08:30 06/29/22 08:30 06/29/22 08:30 06/29/22 08:30 06/29/22 08:30 06/28/22 13:00 Oxygen Flow Rate (L/min) 4 Oxygen Delivery Method Room Air Weight: 80.2 kg Body Mass Index (BMI) 25.3 Intake & Output: Intake and Output for Last 24 Hours 06/27/22 06/28/22 06/29/22 23:59 23:59 23:59 Intake Total 5237 / 6237 1650 / 1650 Output Total 2049 / 2049 Balance 5237 / 5037 -400 / -400 Lab / Micro Data Result Diagrams: 06/29/22 05:35 06/29/22 05:35 Labs: Laboratory Results - last 24 hr 06/28/22 13:04: POC Glucose 156 H 06/29/22 05:35: WBC 13.3 H, RBC 4.02 L, Hgb 12.8 L, Hct 37.6 L, MCV 93.5, MCH 31.8, MCHC 34.0, RDW Std Deviation 46.0 H, RDW Coeff of Bonilla 13.4, Plt Count 275, MPV 9.3 06/29/22 05:35: Sodium 139, Potassium 4.1, Chloride 107, Carbon Dioxide 27.0, Anion Gap 5, BUN 18, Creatinine 0.88, Estim Creat Clear Calc 77.19, Est GFR (MDRD) Af Amer 109, Est GFR (MDRD) Non-Af 90, BUN/Creatinine Ratio 20.5 H, Glucose 121 H, Calcium 8.9 Micro: Microbiology 06/15/22 14:24 Interface Orders Nasal Screen MRSA/MSSA - Final Radiography Diagnostic Testing: Radiology Impression Hip/Pelvis X-Ray 06/28/22 10:20 IMPRESSION: Unremarkable left hip prosthesis. Electronically Signed: Gunner Baron MD at 11:12 EDT Reading Location ID and State: [facility] / [place] Tel , Service support , Hip X-Ray 06/28/22 11:30 IMPRESSION: Postoperative changes, unremarkable alignment of the left hip prosthesis. Electronically Signed: Gunner Baron MD at 12:09 EDT Reading Location ID and State: [facility] / [place] Tel , Service support , Physical Exam Narrative Vital signs stable and afebrile. Left hip is soft and supple JIMMY hose are in place bilaterally, however SCDs are not currently on as patient just finished physical therapy Patient is able to plantarflex and dorsiflex actively. Sensation is intact to light touch to saphenous, sural, superficial and deep peroneal, and tibial distribution. Dressing is clean dry and intact. Negative Homans bilaterally, negative signs and symptoms of DVT. Const alert, oriented x3 and no apparent distress Assessment & Plan Assessment/Plan (1) Status post total hip replacement, left: PLAN: 1. S/P left direct anterior total hip arthroplasty POD #1 2. Continue Pain Medications: Tylenol, meloxicam, oxycodone. Do not take any other nonsteroidal anti-inflammatories while using meloxicam/Mobic. 3. DVT Prophylaxis: Take 81 mg aspirin twice daily for 4 weeks postoperatively for DVT prophylaxis. 4. PT/OT: Weightbearing as tolerated with walker. Continue direct anterior total hip arthroplasty precautions 5. H & H: 12.8/37.6, asymptomatic. Postoperative anemia secondary to acute blood loss from surgery without any intra operative complications. 6. Reactive leukocytosis: Currently 13.3, afebrile. Patient did receive Deca dron intraoperatively 7. Continue postoperative medical management per medicine 8. Encouraged Incentive Spirometry 9. Disposition: Patient overall is doing very well. He initially wanted to go to rehab postoperatively. However he is walking over 300 feet with physical therapy. His pain is very well controlled. We discussed patient not being candidate for rehab facility. I do feel he is appropriate to go home. We discussed this in detail. He would like to get physical therapy at [facility] We will have case management involved with setting this up. He was in agreements on discharge planning. Plan will be for patient to go home today. Prescriptions will be E scribed to [facility]. He will follow-up per postop instructions. He will contact her office with any concerns or questions upon discharge. I have reviewed the [place] Automated Rx Reporting System (OARRS) report for this patient for refill pattern and other prescriber involvement as part of the appropriate surveillance for the provision of acute and chronic controlled medications. The report was requested and reviewed on the date of this entry and was considered in the prescribing process. This dictation was created using voice recognition software. Phonetic and/or grammatical errors may exist.
--- NOTE | 2022-06-29 11:08 | PCM.DC ---
Discharge Instructions Diet Discharge Diet: No restrictions Activity Discharge Activity: May Not Drive (Okay to drive once patient is off all narcotics and can walk 100 feet without the use of cane or walker) May shower in (days): 1 (only if incision is dry and without drainage. Do NOT soak/submerge in tub/pool/meeks/stream/hot tub.)) Ice area for (Minutes): 20 (Every 1-2 hours while awake[address] barrier between ice and skin.) Weight Bearing Status: Weight bearing as tolerated Keep extremity elevated above heart level: Operative Extremity Dressing / Incision Call your doctor if your incision/area has: Continuous Slow Oozing, Sudden Increased Bleeding, Increased Pain/ Swelling, Increased Redness and Foul Smelling Discharge Call your doctor if you observe: Fever of 101 or Higher, Shortness of breath, Chest pain, Calf discomfort and Uncontrolled pain Remove Dressing in: 4 days (Okay to remove dressing on July 03, 2022) Additional Dressing/Incision Instructions:: Follow [facility] Post-op Instructions. Once postoperative dressing has been removed, only use gentle soap and water over the incision. Do not use any ointments, Neosporin, salves, alcohol pads over the incision for 6 weeks postoperatively. Do not submerge underwater for 6 weeks postoperatively. Continue with JIMMY hose/elastic stockings for 2 weeks postoperatively. May remove at nighttime but needs to be placed back on the leg during the day. Do NOT use alcohol with narcotic pain medication. Do NOT make important decisions while taking narcotic medication. If you have problems with taking your medication (rash, itching, nausea, etc.) call the office at once. Follow Up Care Test Results: Test results from this visit will be discussed in further detail at your follow-up appointment, if applicable. Discharge Plan Admission Admit Date/Time: 06/28/22 07:20 Attending Provider: Roge Mcmahan Primary Care Provider: Lo Sun Consulting Providers: Zoltan Dow Discharge Orders/Prescriptions Prescriptions: New acetaminophen 500 mg Tablet 1,000 mg PO Q8 Qty: 100 0RF Rx Instructions: Do not take more than 3000 mg Tylenol in a 24-hour period. meloxicam 7.5 mg Tablet 7.5 mg PO BID Qty: 60 0RF Rx Instructions: Do not take any other nonsteroidal anti-inflammatories while using meloxicam/Mobic. famotidine 20 mg Tablet 20 mg PO DAILY Qty: 30 0RF aspirin 81 mg Tablet,Chewable 81 mg PO BIDCM Qty: 0 0RF Rx Instructions: Take 81 mg aspirin twice daily for 4 weeks postoperatively for DVT prophylaxis. oxycodone 5 mg Tablet 5 - 10 mg PO Q4H PRN PRN (Reason: Pain Score 4-10) 5 Days Qty: 42 0RF sennosides-docusate sodium [Stool Softener-Stimulant Laxat] 8.6-50 mg Tablet 2 tab PO BID Qty: 20 0RF Rx Instructions: Take until first bowel movement, then as needed Continued coenzyme Q10 [Co Q-10] 100 mg capsule 100 mg PO DAILY vitamin E (dl, acetate) 400 unit capsule 400 unit PO DAILY EyeProtect [id number] [id number]-lg-[id number] tablet 1 tab PO BID multivitamin capsule capsule 1 cap PO DAILY rosuvastatin [Crestor] 40 mg tablet 40 mg PO DAILY cholecalciferol (vitamin D3) 2,000 unit capsule 2,000 unit PO DAILY Trintellix 10 mg tablet 10 mg PO DAILY zolpidem 10 MG tablet 10 mg PO QHS tamsulosin 0.4 mg capsule 0.8 mg PO DAILY ramipril 5 MG capsule 5 mg PO DAILY Metamucil 3.4 gram/5.4 gram Powder 1 tbsp PO DAILY Rx Instructions: mix into at least 8 oz of water or juice before administering Discontinued omega-3 fatty acids [Fish Oil Concentrate] 1,000 mg capsule 1,000 mg PO DAILY aspirin 81 mg tablet,delayed release (DR/EC) 81 mg PO DAILY tramadol 50 mg tablet 150 mg PO TID Label Comments: TAKE 2 TABLETS BY MOUTH EVERY 6 HOURS NEEDED FOR PAIN Referrals / Follow Up: Lo Sun MD [Primary Care Provider] - Oumar Kohler PA-C [Med Staff - [facility] Practice [facility]] - 07/13/22 2:45 pm Disposition Disposition (needs filled in before D/C Order can be placed): Home, Self Care
--- NOTE | 2022-06-29 11:30 | CASEMGMT ---
Addendum entered by Suni Hernandez 06/29/22 14:53: 1230: Appt scheduled @ [facility] OP therapy for PT on 07/04/22 @ 2:15 PM. Pt made aware and voices appreciation. Appt info documented in discharge plan. Original Note: RN CM MEDICAL SONOGRAPHER CM to room to meet with patient for initial transition planning/care coordination assessment. RN CM introduced self and role at [facility]. Pt voices understanding and consents to assessment at this time. Pt sitting up in chair in room in no distress at this time. Pt is A/O at this time and answers all questions appropriately. Care providers, pharmacy, and demographics verified/updated at this time. PCP: Dr Sun Specialists: Dr Mcmahan-ortho, Dr Barxton-cardiology, Dr Segura-urology Preferred Pharmacy: [facility] Insurance: [employer] Plan Prescription Benefit: Yes, [employer] LNOK: Significant other, Genevieve Lee Living Arrangements: Lives alone in one-story home w/6-8 steps to enter. Independent W/ADL's and IADL's prior to surgery. Sig other, Genevieve, lives about 30 miles away. Transportation: Pt drives. He states neighbor can take him to OP therapy appts. DME: States has the following DME: cane, walker, pulse ox. Pt states no need for further DME at this time. HHC/SNF: Hx [facility]. Pt initially interested in [facility]. He was made aware that he does not qualify for therapy d/t he is doing so well w/mobility and when working w/ therapy. He is aware therapy is not recommending SNF or RU and they feel he is doing well enough to return home, as does ANTOINE Oseguera. Pt states he did talk with ANTOINE Oseguera, this AM about that and he voices understanding. Discussed options of HHC and OP therapy. He declines wanting HHC and wishes to go to [facility] for OP therapy, stating he has been there in the past. He confirms his neighbor will be able to take him to his appts. Pt voices no further concerns/needs at this time. Advised pt to ask for CM if any further questions/concerns/needs arise. Voices understanding. PLAN: Home w/OP therapy @ [facility] Eliana PAYNE RN, CM
--- NOTE | 2022-06-29 11:44 | CASEMGMT ---
Addendum entered by Leslee Espana 06/29/22 13:50: Received order for outpt PT, faxed to [facility] at this time. F [phone]. Original Note: TC to [facility] to request faxed script for outpt PT to be faxed to [phone]. Left vm.
[2022-06-29 13:32] VITALS: BMI 25.4
[2022-06-29 14:30] VITALS: BP 123/72; PULSE 88; RESP 16; TEMP 36.6; O2SAT 97
== END 2022-06-29 15:40 | disposition home or self-care (01) ==
LOC: MS3 06-29 07:07 → SDC 06-29 08:14 → MS3 06-29 08:15
PROVIDERS: Anesthesiology; Admitting Provider Specialist; PCP Internal Medicine; Referring Provider Specialist; Visit Provider Specialist
PROC: (CPT 27284; principal; 2022-06-28 08:50)
DX: M16.12 Unilateral primary osteoarthritis, left hip (principal); I25.10 Atherosclerotic heart disease of native coronary artery without angina pectoris; N40.0 Benign prostatic hyperplasia without lower urinary tract symptoms; I10 Essential (primary) hypertension; Z86.12 Personal history of poliomyelitis; Z79.899 Other long term (current) drug therapy; E78.5 Hyperlipidemia, unspecified
CPT/HCPCS: 27130; 01214; 36415; 73501; 73502; 76000; 80048; 82962; 83735; 85027; 87077; 87081; 88305; 88311; 96365; 96366; 96375; 97110; 97162; 97166; 97530; 99218; 99251; C1776; J7050; J7120; G0378; G0463; J3475

== ENCOUNTER → 2022-07-25 | Outpatient (CLI) | payer MEDICARE, OTHER, SELFPAY ==
--- NOTE | 2022-07-25 08:11 | US_ITS ---
STUDY: ULTRASOUND - URINARY BLADDER REASON FOR EXAM: Male, 72 years old. urinary retention TECHNIQUE: Ultrasound evaluation of the urinary bladder was performed with real-time and static wise-scale imaging. COMPARISON: 07/09/2017 MRI of the pelvis FINDINGS: There is no right UVJ calculus. There is a visualized right ureteral jet. There is no left UVJ calculus. There is a visualized left ureteral jet. The distended volume of the urinary bladder is 422 ml. The empty volume of the urinary bladder is 78 ml. The bladder wall is within normal limits. The bladder wall measures 3mm. There is no demonstrated bladder wall mass lesion. There are no demonstrated bladder calculi. US/Post Void Residual Bladder IMPRESSION: No acute findings in the urinary bladder. Electronically Signed: Sp Hinton MD at 17:02 EDT ,
== END | disposition home or self-care (01) ==
LOC: US 15:26
PROVIDERS: PCP Internal Medicine; Referring Provider Internal Medicine; Visit Provider Internal Medicine
DX: R33.9 Retention of urine, unspecified (principal)
CPT/HCPCS: 51798

== ENCOUNTER → 2023-03-30 | Outpatient (CLI) | payer SELFPAY ==
--- NOTE | 2023-03-30 12:46 | CT_ITS ---
INDICATION: HYPERLIPIDEMIA Limited CT Chest over-read ONLY EXAMINATION: CT CHEST WITHOUT CONTRAST - CT Chest W/O Contrast Injection TECHNIQUE: Helically acquired images were obtained of the chest. A radiation dose optimization technique was used for this scan. IV Contrast dosage and agent: None. COMPARISON: None. FINDINGS: LUNGS, PLEURA AND LARGE AIRWAYS: Mild degree of the emphysematous changes. Focal groundglass appearance in the anterior aspect of the right middle lobe measuring 4.5 mm. No definite consolidation is seen. No pleural effusion or thickening. No pneumothorax. THYROID: No thyroid lesions. HEART AND PERICARDIUM: Heart size is normal. Small pericardial effusion anteriorly. CORONARY ARTERIES: Coronary artery calcification is seen. VESSELS: Calcified plaque seen at the level of the aortic arch. MEDIASTINUM AND JACINTO: Small benign-appearing precarinal lymph node. Calcified right hilar lymph nodes. Esophagus is unremarkable. No hiatal hernia. UPPER ABDOMEN: Calcified splenic granulomas. BONES: Degenerative changes of the thoracic spine. CT/Limited Chest CT Cardiac Only IMPRESSION: Coronary artery calcification. Small anterior pericardial effusion. Electronically Signed: Lito Huber MD at 10:37 EDT ,
--- NOTE | 2023-03-30 15:57 | CA.SCORE ---
Calcium Scoring Date of Study:: 03/30/23 Coronary Calcium Scoring: High-resolution Computed Tomographic imaging of the chest was performed on [03/30/2023], with particular attention paid to the coronary arteries. Images from the examination were analyzed for the presence and extent of coronary artery calcification , using coronary calcium quantification software. The patient tolerated the procedure well and there were no complications. The results of the coronary calcification analysis are provided below. Findings Coronary Artery Left Main (LM): 79 Left Anterior Descending (LAD): 534 Left Circumflex (LCX): 847 Right Coronary Artery (RCA): 786 Total Agatston Score: 2,246 Percentile Ranking: Greater than 90th percentile Calcium Scoring Interpretation: Different methods to categorize the overall amount of coronary plaque. Overall amount CAC SIS Visual of coronary plaque P1 Mild -100 <2 1-2 vessels with mild amount of plaque P2 Moderate 101-300 3-4 1-2 vessels with moderate amount, 3 vessels with mild amount of plaque P3 Severe 301-999 5-7 3 vessels with moderate amount, 1 vessel with severe amount of plaque P4 Extensive >1000 >8 2-3 vessels with severe amount of plaque Calcium Score: Extensive: 2-3 vessels w/severe amount of plaque Conclusion: Extensive atherosclerotic plaquing noted. In addition in comparison to the previous calcium score from 2019 the above numbers have gone up from 1500 to over 2000.
== END | disposition home or self-care (01) ==
PROVIDERS: PCP Internal Medicine; Referring Provider Internal Medicine; Visit Provider Internal Medicine
DX: E78.5 Hyperlipidemia, unspecified (principal)
CPT/HCPCS: 75571; 76380

== ENCOUNTER → 2023-04-10 | Outpatient (CLI) | payer MEDICARE, OTHER, SELFPAY ==
--- NOTE | 2023-04-10 17:00 | RAD_ITS ---
INDICATION: Pre-operative: [facility] EXAMINATION/TECHNIQUE: X-RAY - XR Chest 2 Views COMPARISON: None. FINDINGS: The lungs are clear. Tortuous and calcified thoracic aorta. The heart is not enlarged. No pleural effusion or pneumothorax. Degenerative changes of the thoracic spine. RAD/Chest PA and Lateral IMPRESSION: No acute radiographic abnormalities. Electronically Signed: Ruy Morales MD at 17:52 EDT ,
[2023-04-10 17:21] LABS: Absolute Neutrophil Count 2.8 X10^3/uL (2.0-7.7); Basophil# 0.04 X10^3/uL; Basophil% 0.6 % (0-1); Eosinophil# 0.29 X10^3/uL; Eosinophils% 4.7 % (0-5); Hematocrit 48.5 % (40-54); Hemoglobin 15.7 g/dL (13.0-16.5); Mean Corp Hgb Conc 32.4 g/dL (32-36); Mean Corpuscular Volume 95.8 fL (80-94); Mean Platelet Vol. 9.3 fl (6.2-12.0); Monocyte# 0.74 X10^3/uL; Monocyte% 11.9 % (0-10); NRBC Flagged by Analyzer 0 % (0-5); Neutrophil # 2.84 X10^3/uL (2.7-7.7); Neutrophil % 45.6 % (47-70); Platelet Count 356 K/mm3 (150-450); RBC Distribution Width CV 13.6 % (11.6-14.6); Red Blood Count 5.06 M/mm3 (4.6-6.2); White Blood Count 6.2 K/mm3 (4.4-11.0)
[2023-04-10 18:33] LABS: Anion Gap 5 (5-15); BUN 22 mg/dL (7-18); BUN/Creat Ratio 19.8 RATIO (10-20); Calcium,Total 9.4 mg/dL (8.5-10.1); Chloride 105 mmol/L (98-107); Creatinine, Serum 1.11 mg/dL (0.70-1.30); EST Glomerular Filtration Rate 69 mL/min (>60); Est Glom Filt Rate - Afr Amer 83 mL/min (>60); Glucose 100 mg/dL (74-106); Potassium 4.6 mmol/L (3.5-5.1); Sodium Level 138 mmol/L (136-145)
== END | disposition home or self-care (01) ==
LOC: LAB 16:50
PROVIDERS: PCP Internal Medicine; Referring Provider Nurse Practitioner Family; Visit Provider Nurse Practitioner Family
DX: Z01.812 Encounter for preprocedural laboratory examination (principal); R93.1 Abnormal findings on diagnostic imaging of heart and coronary circulation; I10 Essential (primary) hypertension; E78.5 Hyperlipidemia, unspecified
CPT/HCPCS: 36415; 71046; 80048; 85025

== ENCOUNTER 2023-04-20 10:13 | Day surgery (SDC) | payer MEDICARE, OTHER, SELFPAY ==
[2023-04-19 07:33] VITALS: BMI 24.7
--- NOTE | 2023-04-20 13:14 | CL.D_ITS ---
Patient Name: EVELYN MEDINA Study Date: 04/20/2023 Performing: Jasbir Braxton MD Ht: 70 inches 177.8 cm : 1950 Wt: 172 lbs 78.02 kg Age: 73 Gender: male BSA: 1.96 PROCEDURE(S) PERFORMED DC01-(00196)LHC/COR/LV CLINICAL PROFILE AND INDICATIONS Indications: Suspected CAD Heart Failure: None Stress/Imaging Stress/Image Study Performed: No CAD Presentations: No Sxs, no angina. CONCLUSIONS Diffuse coronary calcification with triple-vessel disease and no areas of high-grade intervenable disease present. Preserved ejection fraction. RECOMMENDATIONS Medical therapy DESCRIPTION OF PROCEDURE The patient arrived to the procedure lab. The risks and benefits of the procedure as well as a full description of our services here and current unavailability of surgical backup were fully explained to the patient and/or their significant other prior to the catheterization. The Timeout was completed, verifying the correct patient and procedure. The patient's procedural site was prepped and draped in the usual fashion. Local anesthetic was given subcutaneously to right radial region with Lidocaine 2%. Using a modified Seldinger technique, arterial access was obtained via the right radial artery, a 6Fr sheath was inserted. Left Coronary Artery selective angiography was performed in multiple views using a 5 Fr. 4.0 Rodanthe catheter. Right Coronary Artery selective angiography was then performed in multiple views using a 5 Fr. 4.0 Rodanthe catheter. Left Ventriculography was performed in GODDARD projection using a 5 Fr. Pigtail catheter. LV to AO pullback pressures were then recorded.The arterial sheath was pulled and a TR Band was applied for hemostasis. 9cc of air CORONARY ANGIOGRAPHY DOMINANCE: Right Dominant LEFT HEART ASSESSMENT Left Ventricular Ejection Fraction: by LV Gram 55 % Normal LV wall motion Normal Left Ventricular systolic function LEFT MAIN: Mild calcification, Mild luminal irregularities LEFT ANTERIOR DESCENDING ARTERY: Diffusely diseased vessel with proximal 50 to 60% stenosis, first diagonal vessel with moderate ostial disease and diffuse mild distal disease in a calcified vessel. CIRCUMFLEX ARTERY: Nondominant vessel with tiny first and second obtuse marginal branches and third obtuse marginal branch with a long 70% stenotic area in the posterolateral vessel with mild diffuse disease RIGHT CORONARY ARTERY: Dominant small to medium size vessel diffusely diseased with mid to distal 60 to 70% stenotic area noted in proximal calcified diffusely diseased 30 to 40% stenosis. COMPLICATIONS No Complications PROCEDURE MEDICATIONS Fentanyl 50 mcg IV Versed 1 mg IV Versed 1 mg IV Oxygen: 2 L/min via nasal cannula Heparin given IA 04/20/2023 12:02:32 Verapamil 2.5mg, Ntg 100mcgs, 3000 units of Heparin given IA 04/20/2023 12:02:32 SUMMARY OF HEMODYNAMIC DATA Time AIR REST ECG 10:47:07 Art 117/56 (78) 12:09:10 AO 124/68 (92) SA 12:16:50 LV 132/8, 18 12:25:23 LV 126/3, 20 12:25:39 LV 123/3, 20 12:26:28 LVp 123/5, 20 12:26:32 AOp 127/66 (91) 12:26:38 Signed By Jasbir Braxton MD On 04/20/2023 13:13:24 Jasbir Braxton MD
== END 2023-04-20 13:45 | disposition home or self-care (01) ==
LOC: CLSP 10:15
PROVIDERS: PCP Internal Medicine; Referring Provider Internal Medicine Cardiovascular Disease; Visit Provider Internal Medicine Cardiovascular Disease
DX: I25.10 Atherosclerotic heart disease of native coronary artery without angina pectoris (principal)
CPT/HCPCS: 93458; 99152; 99153; J7040; Q9967; C1769; C1894

== ENCOUNTER → 2024-03-11 | Outpatient (CLI) | payer MEDICARE, OTHER, SELFPAY ==
--- NOTE | 2024-03-11 13:51 | CDU_ITS ---
Reason For Study: Carotid stenosis Rt. Velocities/BP Lt. Velocities/BP Prox CCA 99.2/19 cm/sec. Prox CCA 117.4/20.6 cm/sec. Mid CCA 114.6/17.9 cm/sec. Mid CCA 117/15.1 cm/sec. Dist CCA 104.7/16.8 cm/sec. Dist CCA 85.1/13.9 cm/sec. Prox ICA 124.7/22.5 cm/sec. Prox ICA 64.2/12.6 cm/sec. Mid ICA 79.1/18.8 cm/sec. Mid ICA 65.4/17.6 cm/sec. Dist ICA 75.4/18.8 cm/sec. Dist ICA 58.1/16.3 cm/sec. Rt. ICA/CCA = 1.09. Lt. ICA/CCA = 0.56. Prox ECA 80.6/6.9 cm/sec. Prox ECA 82.6/12.6 cm/sec. Rt. Vert. 49.4/11.6 cm/sec. Lt. Vert. 47.5/12.6 cm/sec. Right Extracranial There is homogeneous, smooth atherosclerotic plaque noted in the right common carotid artery. There is heterogeneous, irregular atherosclerotic plaque noted in the right internal carotid artery. There is heterogeneous, irregular atherosclerotic plaque noted in the right external carotid artery. Antegrade flow is noted in the right vertebral artery. Left Extracranial There is homogeneous, smooth atherosclerotic plaque noted in the left common carotid artery. There is heterogeneous, irregular atherosclerotic plaque noted in the left internal carotid artery. There is heterogeneous, irregular atherosclerotic plaque noted in the left external carotid artery. Antegrade flow is noted in the left vertebral artery. Procedure Carotid Duplex 12166. This is a Carotid Duplex examination using B-mode, color flow and specral Doppler. Exam performed in department. VL/Carotid Duplex Ultrasound Interpretation Summary Mild (<50%) stenosis right extracranial internal carotid. Mild (<50%) stenosis left extracranial internal carotid. Patent and antegrade vertebrals bilaterally. Ordering Physician: Lo Sun Referring Physician: Lo Sun Performed By: Margaux Gannon RVT
== END | disposition home or self-care (01) ==
LOC: CVS 13:48
PROVIDERS: PCP Internal Medicine; Referring Provider Internal Medicine; Visit Provider Internal Medicine
DX: I65.23 Occlusion and stenosis of bilateral carotid arteries (principal)
CPT/HCPCS: 93880

== ENCOUNTER 2024-08-27 14:30 | Outpatient (RCR) | payer MEDICARE, OTHER, SELFPAY | END 2024-08-27 19:00 | disposition home or self-care (01) | LOC: PT 14:30 | PROVIDERS: PCP Internal Medicine; Referring Provider Internal Medicine; Visit Provider Internal Medicine | DX: M54.12 Radiculopathy, cervical region (principal) | CPT/HCPCS: 97110; 97140; 97162 ==

== ENCOUNTER → 2025-03-31 | Outpatient (CLI) | payer MEDICARE, OTHER, SELFPAY ==
--- NOTE | 2025-03-31 06:41 | ECHOD_ITS ---
Reason For Study Reason For Study: SHORTNESS OF BREATH Procedure This was a 2D Doppler, Color Flow transthoracic echocardiogram. Exam performed in department. Left Ventricle Normal size and thickness. The LV systolic function is normal. EF is 65 %. Normal diastology for age. Right Ventricle Normal right ventricle. Atria The left and right atria are normal. Mitral Valve Trivial mitral valve insufficiency. Tricuspid Valve Normal tricuspid valve. Aortic Valve Trisinus/trileaflet aortic valve. Pulmonic Valve The pulmonic valve is not well visualized. Trivial pulmonic valve insufficiency. Great Vessels Normal sized aortic root. Pericardium/Pleural No pericardial effusion. MMode/2D Measurements & Calculations LVIDd: 4.1 cm IVSd: 1.1 cm Ao root diam: 3.1 cm LVIDs: 2.8 cm LVPWd: 1.1 cm RVDd: 3.2 cm FS: 32.9 % LAV(MOD-bp): 33.1 ml LVAd ap4: 30.9 cm2 SV(MOD-sp4): 62.7 ml LAV(MOD-bp) Indexed: 16.5 ml/m2 LVLd ap4: 8.5 cm SI(MOD-sp4): 31.2 ml/m2 LAV(MOD-sp2): 28.4 ml EDV(MOD-sp4): 95.7 ml LAV(MOD-sp4): 32.0 ml EDV(sp4-el): 95.8 ml LVAs ap4: 16.8 cm2 LVLs ap4: 7.3 cm ESV(MOD-sp4): 33.0 ml ESV(sp4-el): 32.7 ml EF(MOD-sp4): 65.5 % EF(sp4-el): 65.9 % SV(sp4-el): 63.1 ml LA A4 area: 15.2 cm2 LA dimension(2D): 3.1 cm RA A4 area: 14.4 cm2 TAPSE: 1.8 cm Time Measurements MV dec time: 0.28 sec Doppler Measurements & Calculations MV E max tristian: 58.1 cm/sec Lat Peak E' Tristian: 11.2 cm/sec Med Peak E' Tristian: 10.0 cm/sec MV A max tristian: 58.7 cm/sec E/E' lat: 5.2 E/E' med: 5.8 MV E/A: 0.99 Ao V2 max: 137.1 cm/sec LV V1 max: 125.4 cm/sec PA V2 max: 132.2 cm/sec Ao max P.5 mmHg LV V1 max P.3 mmHg ECHO/Echo Complete Interpretation Summary The LV systolic function is normal. EF is 65 %. Normal diastology for age. Ordering Physician: Lo Sun Referring Physician: Lo Sun Performed By: Isis Manzo RDCS
--- NOTE | 2025-03-31 17:30 | STRESSREP_ITS ---
Stress Test Report Exercise myocardial perfusion stress test. 75-year-old man with a history of coronary artery disease Stress protocol: Resting EKG demonstrates normal sinus rhythm with a rate of 57 bpm resting blood pressure is 112/72 mmHg. The patient exercised according to the regular [facility] protocol for a total duration of 8 minutes and 36 seconds attaining a maximum heart rate of 148 bpm which was 102% of maximum predicted heart rate; the maximum workload was 10.1 metabolic equivalents. At rest there were no ST or T wave changes noted to suggest ischemia and at peak exercise upsloping ST changes only were noted which did not meet the criteria for ischemia. No clinical angina was noted the test was terminated due to the target heart rate being achieved/fatigue. The peak blood pressure was 184/76 mmHg. Rate-pressure product was 26,000. Myocardial perfusion protocol. 11.6 mCi of technetium 99m sestamibi was injected at rest. The patient e xercised according to regular [facility] protocol for total duration of 8 minutes and 36 and at peak exercise 35.3 mCi of technetium 99m sestamibi was injected stress images were obtained stress and rest images were reconstructed in comparing the short axis vertical long and horizontal long axis. Gated images were also obtained. Perfusion SPECT analysis: Review of the stress images demonstrate normal uptake of tracer noted in all areas of the myocardium. The resting images similarly demonstrate normal uptake of tracer noted in all areas of the myocardium. No areas of reversibility are noted to suggest ischemia no previous infarct was noted. Gated SPECT analysis: The gated ejection fraction is 77%. Conclusion: Normal exercise myocardial perfusion stress test at a high workload Preserved ejection fraction.
== END | disposition home or self-care (01) ==
LOC: CVS 06:38
PROVIDERS: PCP Internal Medicine; Referring Provider Internal Medicine; Visit Provider Internal Medicine
DX: R06.02 Shortness of breath (principal)
CPT/HCPCS: 78452; 93017; 93306; A9500; A4216

== ENCOUNTER → 2025-10-02 | Outpatient (CLI) | payer MEDICARE, OTHER, SELFPAY ==
[2025-10-02 13:04] LABS: PSA,Total - Annual Screen 1.27 ng/mL (0.02-4.00)
== END | disposition home or self-care (01) ==
LOC: CIMLAB 10:42
PROVIDERS: PCP Internal Medicine; Referring Provider Internal Medicine; Visit Provider Internal Medicine
DX: Z12.5 Encounter for screening for malignant neoplasm of prostate (principal)
CPT/HCPCS: 36415; 84153; G0103